=== PATIENT | male | born 1950 | race American Indian/Alaskan Native ===

== ENCOUNTER 2016-09-11 11:29 | Emergency (ER) | payer MEDICARE, MEDICAID ==
[2016-09-11 11:38] VITALS: BMI 17.2
[2016-09-11 11:41] VITALS: RESP 18; TEMP 97.1
--- NOTE | 2016-09-11 12:17 | ED PDOC ---
Arrival/HPI - General Chief Complaint: Cough, Cold, Congestion Time Seen by Provider: 09/11/16 11:53 Historian: Patient, Mcc - History of Present Illness Time/Duration: Prior to Arrival Symptom Onset: Sudden Symptom Course: Unchanged Severity Level: Moderate Activities at Onset: Rest Associated Symptoms (Text): 09/11/16 12:15 Patient sent to the emergency department from the long-term for a leaking suprapubic catheter and a leaking PEG tube. The PEG tube actually has a crack in it. There is only one lumen in the tube and I am unable to remove it without pain for the patient. 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 Past Medical History - Infectious Disease Hx of Infectious Diseases: None - Tetanus Immunization Tetanus Immunization: Unknown - Cardiac Hx Cardiac Disorders: Yes Hx Hypertension: Yes - Pulmonary Hx Respiratory Disorders: Yes (THROAT CA, H/O TRACH PLACEMENT/reversal) Hx Asthma: Yes Hx Chronic Obstructive Pulmonary Disease (COPD): Yes Hx Emphysema: Yes Hx Respiratory Aspiration: Yes (ASPIRATION PRECAUTIONS DUE TO PEG FEEDING) - Neurological Hx Neurological Disorder: Yes HX Cerebrovascular Accident: Yes Hx Dementia: Yes Hx Paralysis: Yes (L HEMIPLEGIA) Hx Transient Ischemic Attacks (TIA): Yes - HEENT Hx HEENT Disorder: Yes Hx Blind: Yes (LEGALLY BLIND) Hx Cataracts: Yes (RETINAL DETACHMENT BILATERAL) Hx Glaucoma: Yes Other/Comment: TRACHEOSTOMY REVERSED - Renal Hx Renal Disorder: Yes (SUPRAPUBIC CATHETER) Hx Neurogenic Bladder: Yes (HEMATURIA/URINARY RETENTION) Other/Comment: RETENTION, SUPRAPUBIC RODRIGUEZ CATHETER - Endocrine/Metabolic Hx Diabetes Mellitus Type 2: Yes - Hematological/Oncological Hx Blood Disorders: Yes Hx Anemia: Yes Hx Cancer: Yes (prostate, head and neck) Hx Chemotherapy: Yes - Musculoskeletal/Rheumatological Hx Musculoskeletal Disorders: Yes Hx Falls: Yes Hx Unsteady Gait: Yes (BEDRIDDEN) - Gastrointestinal Hx Gastrointestinal Disorders: Yes Hx Diverticulitis: Yes HX Swallowing Problems: Yes (HEAD AND NECK CANCER) Other/Comment: HIATAL HERNIA/GASTROSTOMY TUBE 2012 - Genitourinary/Gynecological Hx Genitourinary Disorders: Yes Hx Hematuria: Yes Hx Incontinence: Yes Hx Prostate Cancer: Yes Hx Prostate Problems: Yes (PROSTATE CA) Other/Comment: HX: RETENTION. RODRIGUEZ CATHETER DEPENDENT - Psychiatric Hx Psychophysiologic Disorder: Yes Hx Anxiety: Yes - Past Surgical History Past Surgical History: Unable to Obtain - Surgical History Other/Comment: PROSTATE, DISSECTION DEBULKING HEAD AND NECK CA. GASTROSTOMY TUBE INSERTION. SUPRAPUBIC CATHETER INSERTION/CYSTO. 12/03/15-CHANGE IN RODRIGUEZ CATH - Anesthesia Hx Anesthesia: Yes Hx Anesthesia Reactions: No Hx Malignant Hyperthermia: No - Suicidal Assessment Feels Threatened In Home Enviroment: No Family/Social History - Physician Review Nursing Documentation Reviewed: Yes Family/Social History: Unknown Family HX Smoking Status: Former Smoker Hx Alcohol Use: No Hx Substance Use Treatment: No Allergies/Home Meds Allergies/Adverse Reactions: Allergies No Known Allergies Allergy (Verified 08/19/16 11:10) Home Medications: Home Meds Medication Instructions Recorded Confirmed Omeprazole [Prilosec] 20 mg GT BID 11/17/13 08/19/16 Rosuvastatin Calcium [Crestor] 10 mg GT DAILY 11/17/13 08/19/16 Acetaminophen 650 mg GT Q4 PRN 10/24/15 08/19/16 Amlodipine Besylate [Norvasc] 10 mg GT DAILY 10/24/15 08/19/16 Aspirin [Aspirin Chewable] 81 mg GT DAILY 10/24/15 08/19/16 Latanoprost 0.005% Opht [XALATAN 1 drop OU HS 10/24/15 08/19/16 2.5 Ml] Magnesium Hydroxide [Milk Of 30 ml GT HS PRN 10/24/15 08/19/16 Magnesia] Melatonin 5 mg GT HS 10/24/15 08/19/16 Metoprolol Tartrate [Lopressor] 50 mg GT DAILY 10/24/15 08/19/16 Multivitamin [Multi-Delyn] 5 ml GT DAILY 10/24/15 08/19/16 Oxybutynin [Oxybutynin Chloride] 10 mg GT DAILY 10/24/15 08/19/16 Vit C/Ascorbate Ca/Ascorb Sod 500 mg GT DAILY 10/24/15 08/19/16 [Vitamin C 500 mg/15 ml Liquid] fentaNYL 25 mcg/hr [Duragesic 1 patch TP Q72 10/24/15 08/19/16 Patch 25 mcg/hr] Albuterol/Ipratropium [Duoneb 3 3 ml IH Q6 PRN 07/30/16 08/19/16 mg/0.5 mg (3 ml) UD] Senna [Senokot Syrup] 10 ml GT DAILY 07/30/16 08/19/16 Oxycodone HCl/Acetaminophen 10 mg GT PRN PRN 08/04/16 08/19/16 [Percocet 10-325 mg Tablet] Review of Systems - Physician Review All systems were reviewed & negative as marked: Yes Physical Exam Vital Signs Temp Pulse Resp BP Pulse Ox 09/11/16 14:21 63 18 118/63 99 09/11/16 13:06 66 18 121/64 99 09/11/16 11:40 97.1 F L 68 18 122/67 99 Temperature: Afebrile Blood Pressure: Normal Pulse: Regular Respiratory Rate: Normal Appearance: Positive for: Well-Appearing, Non-Toxic, Comfortable, Other ( Chronically ill-appearing) Pain Distress: None Mental Status: Positive for: Alert and Oriented X 3 - Systems Exam Respiratory/Chest: Present: Clear to Auscultation, Good Air Exchange. No: Respiratory Distress, Accessory Muscle Use Cardiovascular: Present: Regular Rate and Rhythm, Normal S1, S2. No: Murmurs Abdomen: Present: Normal Bowel Sounds, Other (G-tube and suprapubic catheter in place). No: Tenderness, Distention, Peritoneal Signs Medical Decision Making ED Course and Treatment: 09/11/16 12:49 [facility]. 09/11/16 12:59 Discussed in detail with Dr.E Byrd. The suprapubic tube is not leaking. He would prefer that it would not be changed, as he reports it is very difficult to change. Disposition/Present on Arrival - Present on Arrival Any Indicators Present on Arrival: No History of DVT/PE: No History of Uncontrolled Diabetes: No Urinary Catheter: Yes (suprapubic cath) History of Decub. Ulcer: No History Surgical Site Infection Following: None - Disposition Have Diagnosis and Disposition been Completed?: Yes Diagnosis: Feeding tube dysfunction, Encounter for gastrojejunal (GJ) tube placement Disposition: HOME/ ROUTINE Disposition Time: 15:27 Patient Plan: Discharge Condition: GUARDED Discharge Instructions (ExitCare): Percutaneous Endoscopic Gastrostomy Insertion in Children (GEN)
[2016-09-11 15:54] VITALS: BP 102/66; PULSE 70; O2SAT 100
--- NOTE | 2016-09-11 16:23 | CON ---
DATE: 09/11/2016 Seen and examined in the Emergency Room. Chart was reviewed. REQUEST FOR CONSULT: For PEG tube malfunction. HISTORY OF PRESENT ILLNESS: This is a 65-year-old male with a past medical history of CVA, COPD, sup rapubic catheter and prostate cancer who came from the [facility] with complaints of leaking of PEG tube and suprapubic catheter. The patient states that his PEG tube is not functioning. The patient denies any nausea. No fever or chills. Denies any abdominal pain. No complaints of any shortness of breath, chest pain, fever, chills or overt GI bleed. PAST MEDICAL HISTORY: As stated above, CVA, asthma, COPD, diverticulosis, prostate cancer, throat ca ncer, suprapubic catheter, hypertension. The patient is also legally blind. He has a history of ret inal detachment bilaterally, history of diabetes mellitus type 2. PAST SURGICAL HISTORY: His last endoscopy was 09/2013. He had the PEG tube replaced, found to have gastric ulcer. He had dissection, debulking of the head and neck cancer, superpubic catheter inserti ons and cysto. The last change of his suprapubic catheter was 08/04/2016. SOCIAL HISTORY: Denies tobacco use, ETOH or substance abuse. MEDICATIONS: Reviewed as per AUG. I did not see any anticoagulants. ALLERGIES: No known drug allergies. FAMILY HISTORY: Noncontributory at this time. REVIEW OF SYSTEMS: Systems reviewed with positive findings, see HPI. VITAL SIGNS: Temperature is 97.1, blood pressure is 118/63, pulse 63, respirations 18, 99 on room ai r. LABORATORY DATA: ____ in the ER. RADIOLOGY: No radiology tests done or needed. PHYSICAL EXAMINATION: HEENT: Sclerae are anicteric. NECK: Supple. CARDIAC: S1, S2. LUNGS: Decreased breath sounds but good aeration, no rales or wheeze. ABDOMEN: With bowel sounds. Soft, nontender. No distension noted. Positive PEG tube that appears old. No erythema or bleeding noted at insertion site. He also has a suprapubic catheter in place, n ontender. EXTREMITIES: No edema noted. NEUROLOGIC: The patient is awake and alert. ASSESSMENT: This is a 65-year-old male with a history of prostate cancer, throat cancer; dysphagia h as a feeding tube; history of cerebrovascular accident, came to the Emergency Room with percutaneous endoscopic gastrostomy tube malfunction and leaking suprapubic catheter. Other comorbidities are chr onic obstructive pulmonary disease, hypertension. PLAN: The patient's feeding gastrostomy tube was changed at the bedside with an EndoVive feeding tub e, 20 [place] with 8 mL balloon. The patient tolerated the change of the feeding tube well. Very min imal blood after but the bleeding has stopped. Discussed with nursing staff that the feeding tube ca n be used. The patient is going to be discharged back to the [facility]. Can resume PEG feedings as previously ordered and use PEG tube for meds. Discussed with the ER team. Thank you for this consult and for allowing us to participate in your patient's care. The patient wa s seen and discussed with Dr. Mixon. Uyen CARDOZA cc: [id number] TT: 09/11/2016 16:22:22 Confirmation # [id number] Dictation # [id number] adilia
== END 2016-09-11 16:13 | disposition home or self-care (01) ==
LOC: ED 11:29
DX: Z43.1 Encounter for attention to gastrostomy (principal)

== ENCOUNTER 2017-08-18 17:39 | Observation (INO) | payer MEDICARE, MEDICAID ==
[2017-08-18 17:39] VITALS: BMI 16.6
--- NOTE | 2017-08-18 18:44 | ED PDOC ---
Arrival/HPI - General Chief Complaint: GI Problem Time Seen by Provider: 08/18/17 18:27 Historian: Patient, [facility] - History of Present Illness Narrative History of Present Illness (Text): 08/18/17 18:44 This 66 yo male with a pmh throat Ca, stroke, retinal detachment, presents to this ED stating his feeding tube was accidentally pulled out early today. Patient denies fever, sob, cp, nausea, vomiting, urinary symptoms, or abdominal pain. Time/Duration: Other (see hpi) Context: Home Past Medical History - Provider Review Nursing Documentation Reviewed: Yes - Infectious Disease Hx of Infectious Diseases: None - Tetanus Immunization Tetanus Immunization: Unknown - Cardiac Hx Cardiac Disorders: Yes Hx Hypertension: Yes - Pulmonary Hx Respiratory Disorders: Yes (THROAT CA, H/O TRACH PLACEMENT/reversal) Hx Asthma: Yes Hx Chronic Obstructive Pulmonary Disease (COPD): Yes Hx Emphysema: Yes Hx Respiratory Aspiration: Yes (ASPIRATION PRECAUTIONS DUE TO PEG FEEDING) - Neurological Hx Neurological Disorder: Yes HX Cerebrovascular Accident: Yes Hx Dementia: Yes Hx Paralysis: Yes (L HEMIPLEGIA) Hx Transient Ischemic Attacks (TIA): Yes - HEENT Hx HEENT Disorder: Yes Hx Blind: Yes (LEGALLY BLIND) Hx Cataracts: Yes (RETINAL DETACHMENT BILATERAL) Hx Glaucoma: Yes Other/Comment: TRACHEOSTOMY REVERSED - Renal Hx Renal Disorder: Yes (SUPRAPUBIC CATHETER) Hx Neurogenic Bladder: Yes (HEMATURIA/URINARY RETENTION) Other/Comment: RETENTION, SUPRAPUBIC RODRIGUEZ CATHETER - Endocrine/Metabolic Hx Endocrine Disorders: Yes Hx Diabetes Mellitus Type 2: Yes (no medication) - Hematological/Oncological Hx Blood Disorders: Yes Hx Anemia: Yes Hx Cancer: Yes (prostate, head and neck) Hx Chemotherapy: Yes - Integumentary Hx Dermatological Disorder: No - Musculoskeletal/Rheumatological Hx Musculoskeletal Disorders: Yes Hx Falls: Yes Hx Unsteady Gait: Yes (BEDRIDDEN) - Gastrointestinal Hx Gastrointestinal Disorders: Yes Hx Diverticulitis: Yes HX Swallowing Problems: Yes (HEAD AND NECK CANCER) Other/Comment: HIATAL HERNIA/GASTROSTOMY TUBE 2012 - Genitourinary/Gynecological Hx Genitourinary Disorders: Yes Hx Hematuria: Yes Hx Incontinence: Yes Hx Prostate Cancer: Yes Hx Prostate Problems: Yes (PROSTATE CA) Other/Comment: HX: RETENTION. RODRIGUEZ CATHETER DEPENDENT - Psychiatric Hx Psychophysiologic Disorder: Yes Hx Anxiety: Yes Hx Substance Use: No - Past Surgical History Past Surgical History: Unable to Obtain - Surgical History Other/Comment: PROSTATE, DISSECTION DEBULKING HEAD AND NECK CA. GASTROSTOMY TUBE INSERTION. SUPRAPUBIC CATHETER INSERTION/CYSTO - Anesthesia Hx Anesthesia: Yes Hx Anesthesia Reactions: No Hx Malignant Hyperthermia: No - Suicidal Assessment Feels Threatened In Home Enviroment: No Family/Social History - Physician Review Nursing Documentation Reviewed: Yes Family/Social History: Other Smoking Status: Former Smoker Hx Alcohol Use: No Hx Substance Use: No Hx Substance Use Treatment: No Allergies/Home Meds Allergies/Adverse Reactions: Allergies No Known Allergies Allergy (Verified 08/18/17 17:54) Home Medications: Home Meds Medication Instructions Recorded Confirmed Omeprazole [Prilosec] 20 mg GT BID 11/17/13 08/18/17 Acetaminophen 650 mg GT Q4 PRN 10/24/15 08/18/17 Amlodipine Besylate [Norvasc] 10 mg GT DAILY 10/24/15 08/18/17 Aspirin [Aspirin Chewable] 81 mg GT DAILY 10/24/15 08/18/17 Latanoprost 0.005% Opht [XALATAN 1 drop OU HS 10/24/15 08/18/17 2.5 Ml] Magnesium Hydroxide [Milk Of 30 ml GT HS PRN 10/24/15 08/18/17 Magnesia] Melatonin 5 mg GT HS 10/24/15 08/18/17 Metoprolol Tartrate [Lopressor] 50 mg GT DAILY 10/24/15 08/18/17 Multivitamin [Multi-Delyn] 5 ml GT DAILY 10/24/15 08/18/17 Oxybutynin [Oxybutynin Chloride] 10 mg GT DAILY 10/24/15 08/18/17 Vit C/Ascorbate Calcium,Sodium 500 mg GT DAILY 10/24/15 08/18/17 [Vitamin C 500 mg/15 ml Liquid] Albuterol/Ipratropium [Duoneb 3 3 ml IH Q6 PRN 07/30/16 08/18/17 mg/0.5 mg (3 ml) UD] Senna [Senokot Syrup] 10 ml GT DAILY 07/30/16 08/18/17 Amino Acids/Protein Hydrolys 30 ml GT BID 08/18/17 08/18/17 [Prostat 15 g packet] Fentanyl [Duragesic Patch] 25 mcg TOP Q72 08/18/17 08/18/17 Lactulose [Generlac] 10 gm GT PRN PRN 08/18/17 08/18/17 oxyCODONE/Acetaminophen [Percocet 1 tab GT TID 08/18/17 08/18/17 5/325 mg Tab] Review of Systems - Review of Systems Constitutional: Normal. absent: Fatigue, Weight Change, Fevers Eyes: Normal ENT: Normal Respiratory: Normal. absent: SOB, Cough Cardiovascular: Normal. absent: Chest Pain, Palpitations Gastrointestinal: Other (see hpi). absent: Abdominal Pain, Nausea, Vomiting Genitourinary Male: Normal Musculoskeletal: Normal Skin: Normal Neurological: Normal Endocrine: Normal Hemo/Lymphatic: Normal Psychiatric: Normal Physical Exam Vital Signs Temp Pulse Resp BP Pulse Ox 08/18/17 18:00 97.8 F 75 20 102/74 99 Temperature: Afebrile Blood Pressure: Normal Pulse: Regular Respiratory Rate: Normal Appearance: Positive for: Well-Appearing, Non-Toxic, Comfortable Pain Distress: None Mental Status: Positive for: Alert and Oriented X 3 - Systems Exam Head: Present: Atraumatic, Normocephalic Pupils: Present: PERRL Extroacular Muscles: Present: EOMI Conjunctiva: Present: Normal Mouth: Present: Moist Mucous Membranes Neck: Present: Normal Range of Motion Respiratory/Chest: Present: Clear to Auscultation, Good Air Exchange. No: Respiratory Distress, Accessory Muscle Use Cardiovascular: Present: Regular Rate and Rhythm, Normal S1, S2. No: Murmurs Abdomen: Present: Normal Bowel Sounds, Other ((+) suprapubic cathereter visualized). No: Tenderness, Distention, Peritoneal Signs, Rebound, Guarding, Feeding Tubes (feeding tube is not visualized. G-tube abdominal ) Back: Present: Normal Inspection. No: CVA Tenderness Upper Extremity: Present: Normal Inspection. No: Cyanosis, Edema Lower Extremity: Present: Normal Inspection. No: Edema Neurological: Present: GCS=15, CN II-XII Intact, Speech Normal Skin: Present: Warm, Dry, Normal Color. No: Rashes Psychiatric: Present: Alert, Oriented x 3 Medical Decision Making ED Course and Treatment: 08/18/17 20:[address] Tierney regarding feeding tube was pulled out early today. She recommended Dr. Mixon for GI consult, and she agreed with plan for admission. 08/18/17 20:14 Patient refused KUB x-rays at this time Re-evaluation Time: 20:09 Reassessment Condition: Re-examined, Improving,but remains with symptoms - Lab Interpretations Lab Results: 08/18/17 19:00 08/18/17 19:00 Lab Results 08/18/17 19:00: Sodium 141, Potassium 5.0, Chloride 100, Carbon Dioxide 33, Anion Gap 13, BUN 14, Creatinine 0.7 L, Est GFR ( Amer) > 60, Est GFR ( Non-Af Amer) > 60, Random Glucose 84, Calcium 10.4, Total Bilirubin 0.6, AST 23 , ALT 18, Alkaline Phosphatase 122, Total Protein 8.8 H, Albumin 4.3, Globulin 4.5, Albumin/Globulin Ratio 1.0 L 08/18/17 19:00: PT 11.9, INR 1.04, APTT 38.1 H 08/18/17 19:00: WBC 6.4, RBC 4.76, Hgb 15.1, Hct 44.8, MCV 94.1, MCH 31.7, MCHC 33.7, RDW 12.7, Plt Count 193, MPV 9.6, Gran % 69.6 H, Lymph % (Auto) 19.2 L, [place] % (Auto) 6.3 H, Eos % (Auto) 4.4, Baso % (Auto) 0.5, Gran # 4.44, Lymph # ( Auto) 1.2, [place] # (Auto) 0.4, Eos # (Auto) 0.3, Baso # (Auto) 0.03 I have reviewed the lab results: Yes Interpretation: No clinic. lab abnormalty - RAD Interpretation Radiology Orders: 08/18/17 18:43 CHEST PORTABLE [RAD] Stat 08/18/17 18:46 ABDOMEN (FLAT PLATE) 1VIEW [RAD] Stat Disposition/Present on Arrival - Present on Arrival Any Indicators Present on Arrival: No History of DVT/PE: No History of Uncontrolled Diabetes: No Urinary Catheter: Yes (suprapubic cath) History of Decub. Ulcer: No History Surgical Site Infection Following: None - Disposition Have Diagnosis and Disposition been Completed?: Yes Diagnosis: Encounter for feeding tube placement Disposition: HOSPITALIZED Disposition Time: 20:10 Patient Plan: Admission Patient Problems: Current Active Problems Problem Status Onset Encounter for feeding tube placement Acute Condition: STABLE Referrals: Zully Post, [Primary Care Provider] - Follow up with primary Azul Tierney MD [Staff Provider] - Follow up with primary
[2017-08-18 19:23] LABS: BASO # 0.03 K/mm3 (0.0-2.0); BASO % 0.5 % (0.0-3.0); EOS # 0.3 (0.0-0.7); EOS % 4.4 % (1.5-5.0); GRAN # 4.44 (1.4-6.5); GRAN % 69.6 % (50.0-68.0); HEMOGLOBIN 15.1 g/dL (14.0-18.0); LYMPH # 1.2 (1.2-3.4); LYMPH % 19.2 % (22.0-35.0); MEAN CELL VOLUME 94.1 fl (80.0-105.0); MEAN CORPUSCULAR HEMOGLOBIN 31.7 pg (25.0-35.0); MEAN CORPUSCULAR HGB CONC 33.7 g/dl (31.0-37.0); MEAN PLATELET VOLUME 9.6 fl (7.0-11.0); MONO # 0.4 (0.1-0.6); MONO % 6.3 % (1.0-6.0); RBC 4.76 10^6/uL (3.5-6.1); RED CELL DISTRIBUTION WIDTH 12.7 % (11.5-14.5); WHITE BLOOD COUNT 6.4 10^3/ul (4.5-11.0)
[2017-08-18 19:31] LABS: INR 1.04 (0.93-1.08); PARTIAL THROMBOPLASTIN TIME 38.1 Seconds (25.1-36.5); PROTHROMBIN TIME 11.9 SECONDS (9.4-12.5)
[2017-08-18 19:33] LABS: ALBUMIN 4.3 g/dL (3.0-4.8); CALCIUM 10.4 mg/dL (8.4-10.5); GFR AFRICAN-AMERICAN > 60; GFR NON-AFRICAN AMERICAN > 60
[2017-08-18 19:35] LABS: ALT/SGPT 18 U/L (7-56); AST/SGOT 23 U/L (17-59); BLOOD UREA NITROGEN 14 mg/dL (7-21)
[2017-08-18] MEDS ORDERED: Magnesium Hydroxide Susp 30 ml UD GT PRN (23:19)
[2017-08-18] MEDS ORDERED: Albuterol-Ipratrop 3 mg / 0.5 (3 ml) UD IH PRN (23:19)
[2017-08-19] MEDS ORDERED: Pantoprazole 40 mg Susp UD GT SCH (06:00)
[2017-08-19] MEDS ORDERED: Sodium Chloride 0.9% 1,000 ML IV SCH (07:45)
[2017-08-19 07:56] LABS: HEMOGLOBIN 14.5 g/dL (14.0-18.0); MEAN CELL VOLUME 93.5 fl (80.0-105.0); MEAN CORPUSCULAR HEMOGLOBIN 31.5 pg (25.0-35.0); MEAN CORPUSCULAR HGB CONC 33.7 g/dl (31.0-37.0); MEAN PLATELET VOLUME 9.4 fl (7.0-11.0); RBC 4.6 10^6/uL (3.5-6.1); RED CELL DISTRIBUTION WIDTH 12.8 % (11.5-14.5)
[2017-08-19 08:05] LABS: IRON 79 ug/dL (45-180)
[2017-08-19 08:10] LABS: BLOOD UREA NITROGEN 12 mg/dL (7-21); CALCIUM 9.9 mg/dL (8.4-10.5); GFR AFRICAN-AMERICAN > 60; GFR NON-AFRICAN AMERICAN > 60; HDL CHOLESTEROL 36 mg/dL (29-60)
[2017-08-19 08:14] LABS: % IRON SATURATION 30 % (20-55); TOTAL IRON BINDING CAPACITY 260 ug/dL (261-462)
[2017-08-19 08:17] LABS: LDL CHOLESTEROL 88 mg/dL (0-129)
--- NOTE | 2017-08-19 08:46 | RAD ---
HISTORY: admission COMPARISON: 09/13/2013 FINDINGS: LUNGS: No active pulmonary disease. PLEURA: No significant pleural effusion identified, no pneumothorax apparent. CARDIOVASCULAR: Normal. OSSEOUS STRUCTURES: No significant abnormalities. VISUALIZED UPPER ABDOMEN: Normal. OTHER FINDINGS: None. IMPRESSION: No active disease.
[2017-08-19] MEDS ORDERED: SENNA 8.8 MG/5 ML GT SCH (10:00)
[2017-08-19] MEDS: Oxycodone/Acetaminophen 5/325 mg Tab GT SCH ×3 (10:48→17:39)
[2017-08-19 13:59] LABS: FOLATE 12.3 ng/mL
[2017-08-19 14:32] VITALS: BP 139/83; PULSE 72; RESP 18; O2SAT 98
[2017-08-19] MEDS: Prostat 15 g packet GT SCH ×2 (14:38→18:15)
--- NOTE | 2017-08-19 16:13 | HP ---
CHIEF COMPLAINT: GI problem. HISTORY OF PRESENT ILLNESS: Mr. Beny Armando is a 66 years old male with history of throat cancer; stroke; bilaterally blind; has PEG tube, was accidentally dislodged. The patient is not a good historian. Denies fever, shortness of breath. No chest pain. No nausea, vomiting or diarrhea. No fever, no chills. PAST MEDICAL HISTORY: As above; hypertension, placement and reversal, COPD; emphysema; aspiration pneumonia; PEG tube; dementia; history of hemiplegia; TIA; legally blind; retinal detachment; history of tracheostomy reversal; diabetes mellitus; history of prostate, head, neck and throat CA; history of fall. FAMILY HISTORY: Father and mother, noncontributory. HABITS: Former smoker. No alcohol or substance abuse. ALLERGIES: THE PATIENT IS NOT ALLERGIC WITH ANY MEDICATIONS. HOME MEDICATIONS: Omeprazole, amlodipine, aspirin, metoprolol, Duragesic patch. REVIEW OF SYSTEMS: The patient was seen and examined on the bedside, looking comfortable. No nausea, vomiting or diarrhea. No hematuria or hematochezia. No swelling of the leg. No headache, no dizziness. PHYSICAL EXAMINATION VITAL SIGNS: Temperature 97.8, pulse 75, respiratory rate 20, blood pressure 102/74, pulse oximetry 99. HEENT: Head: Normocephalic, atraumatic. Eyes: PERRLA. Extraocular muscles intact. Conjunctivae clear. Nose: Patent. NECK: Supple. No carotid bruit. No JVD, no thyromegaly. CHEST: Bilaterally symmetrical. HEART: S1, S2 positive. LUNGS: Clear to auscultation. ABDOMEN: Soft. Bowel sounds present. No organomegaly. EXTREMITIES: No edema. No cyanosis. NEUROLOGIC: Patient is awake and alert. Moving all 4 extremities. No focal deficit. LABORATORY DATA: White blood cell 6.4, hemoglobin 15.1, hematocrit 44.8, platelets 193,000. Sodium 141, potassium 5, BUN 14, creatinine 0.7, glucose 84. ASSESSMENT AND PLAN: Mr. Beny Armando is a 66 years old male came for encounter for feeding tube placement, history of throat cancer, stroke, retinal detachment, legally blind, accidentally pulled his gastrostomy tube, history of percutaneous endoscopic gastrostomy placement and reversal, chronic obstructive pulmonary disease, history of pneumonia, dementia, hemiplegia, transient ischemic attack, indwelling catheter, diabetes mellitus type 2, history of prostate, head and neck cancer. Gastroenterology consult called We will follow up. Azul Tierney MD ALEXI
[2017-08-19 16:35] VITALS: TEMP 98
--- NOTE | 2017-08-19 16:54 | CP.PCM.CON ---
<Uyen Gonzalez - Last Filed: 08/19/17 16:52> History of Present Illness - History of Present Illness History of Present Illness: Seen and examined at the bedside earlier this morning, chart reviewed. Request for GI consult is for a dislodged PEG. 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 This patient is well known to our service with multiple admissions and dislodged PEG and replacements. The patient is awake and alert denies any nausea, vomiting, or abdominal pain. The patient is reported to be on a pured diet in the [facility]. No acute overnight events reported. This patient had a chest x-ray on admission which showed no active disease. Past medical history: Head/neck/throat cancer,Prostate cancer, CVA, asthma, COPD , hypertension Past surgical history: Suprapubic catheter/cystoscopy, dissection debulking head neck cancer Prostate surgery, EGD/PEG insertion/replacement Allergies: No known drug allergies Medications: Reviewed as per MAR Family history: Noncontributory at this time Social history: Former smoker, denies EtOH or illicit drugs ROS: Systems reviewed a positive findings see HPI Past Patient History - Infectious Disease Hx of Infectious Diseases: None - Tetanus Immunizations Tetanus Immunization: Unknown - Past Medical History & Family History Past Medical History?: Yes - Past Social History Smoking Status: Former Smoker - CARDIAC Hx Hypertension: Yes - PULMONARY Hx Respiratory Disorders: Yes (THROAT CA, H/O TRACH PLACEMENT/reversal) Hx Asthma: Yes Hx Chronic Obstructive Pulmonary Disease (COPD): Yes - NEUROLOGICAL HX Cerebrovascular Accident: Yes Hx Dementia: Yes Hx Transient Ischemic Attacks (TIA): Yes - HEENT Hx Blind: Yes (LEGALLY BLIND) Hx Cataracts: Yes (RETINAL DETACHMENT BILATERAL) Hx Glaucoma: Yes - RENAL Hx Chronic Kidney Disease: Yes (SUPRAPUBIC CATHETER) Hx Neurogenic Bladder: Yes (HEMATURIA/URINARY RETENTION) Other/Comment: RETENTION, SUPRAPUBIC RODRIGUEZ CATHETER - ENDOCRINE/METABOLIC Hx Endocrine Disorders: Yes Hx Diabetes Mellitus Type 2: Yes (no medication) - HEMATOLOGICAL/ONCOLOGICAL Hx Blood Disorders: Yes Hx Anemia: Yes Hx Cancer: Yes (prostate, thoat) Hx Chemotherapy: Yes - INTEGUMENTARY Hx Dermatological Problems: No - MUSCULOSKELETAL/RHEUMATOLOGICAL Hx Falls: Yes - GASTROINTESTINAL Hx Gastrointestinal Disorders: Yes Hx Diverticulitis: Yes HX Swallowing Problems: Yes (throat CA) Other/Comment: HIATAL HERNIA/GASTROSTOMY TUBE 2012 - GENITOURINARY/GYNECOLOGICAL Hx Genitourinary Disorders: Yes Hx Hematuria: Yes Hx Incontinence: Yes Hx Prostate Problems: Yes (PROSTATE CA) - PSYCHIATRIC Hx Anxiety: Yes - SURGICAL HISTORY Other/Comment: HIATAL HERNIA REPAIR - ANESTHESIA Hx Anesthesia: Yes Hx Anesthesia Reactions: No Hx Malignant Hyperthermia: No Meds Allergies/Adverse Reactions: Allergies Allergy/AdvReac Type Severity Reaction Status Date / Time No Known Allergies Allergy Verified 08/18/17 17:54 - Medications Medications: Current Medications Albuterol/Ipratropium (Duoneb 3 Mg/0.5 Mg (3 Ml) Ud) 3 ml IH Q6 PRN PRN Reason: Shortness of Breath Amlodipine Besylate (Norvasc) 10 mg GT DAILY [facility] Last Admin: 08/19/17 10:47 Dose: 10 mg Fentanyl (Duragesic) 1 patch TD Q72 [facility] Sodium Chloride (Sodium Chloride 0.9%) 1,000 mls @ 50 mls/hr IV .Q20H [facility] Latanoprost (Xalatan Opht) 0 ml OU HS [facility] Magnesium Hydroxide (Milk Of Magnesia) 30 ml GT HS PRN PRN Reason: Constipation Metoprolol Tartrate (Lopressor) 50 mg GT DAILY [facility] Last Admin: 08/19/17 10:47 Dose: 50 mg Melatonin [Melatonin (] 5 Mg (Home Med)) 5 mg GT HS [facility] Oxycodone/Acetaminophen (Percocet 5/325 Mg Tab) 1 tab GT TID [facility] Stop: 08/22/17 10:01 Last Admin: 08/19/17 14:32 Dose: 1 tab Pantoprazole Sodium (Protonix Susp) 40 mg GT 0600 [facility] Last Admin: 08/19/17 07:29 Dose: Not Given Sennosides (Senokot Tab) 17.2 mg PEG DAILY [facility] Physical Exam - Constitutional Appears: No Acute Distress, Cachectic - Head Exam Head Exam: NORMOCEPHALIC - Eye Exam Eye Exam: absent: Scleral icterus - ENT Exam ENT Exam: Mucous Membranes Moist - Neck Exam Neck exam: Positive for: Normal Inspection - Respiratory Exam Respiratory Exam: NORMAL BREATHING PATTERN. absent: Respiratory Distress - Cardiovascular Exam Cardiovascular Exam: +S1, +S2 - GI/Abdominal Exam GI & Abdominal Exam: Normal Bowel Sounds, Soft. absent: Guarding, Rebound, Tenderness Additional comments: suprapubic catheter present, stoma from PEG tube noted, no PEG, no drainage or bleeding noted abdomen nontender. - Extremities Exam Extremities exam: Positive for: pedal pulses present. Negative for: calf tenderness, pedal edema - Neurological Exam Neurological exam: Alert, Oriented x3 - Skin Skin Exam: Dry, Warm Results - Vital Signs Recent Vital Signs: Last Vital Signs Temp 98 F 08/19/17 14:00 Pulse 72 08/19/17 14:00 Resp 18 08/19/17 14:00 BP 139/83 08/19/17 14:00 Pulse Ox 98 08/19/17 14:00 - Labs Result Diagrams: 08/19/17 07:30 08/19/17 07:30 Labs: Laboratory Results - last 24 hr 08/19/17 08/19/17 08/19/17 07:30 07:30 07:30 WBC 5.0 D RBC 4.60 Hgb 14.5 Hct 43.0 MCV 93.5 MCH 31.5 MCHC 33.7 RDW 12.8 Plt Count 203 MPV 9.4 Sodium Potassium Chloride Carbon Dioxide Anion Gap BUN Creatinine Est GFR ( Amer) Est GFR (Non-Af Amer) Random Glucose Hemoglobin A1c 5.3 Calcium Iron 79 TIBC 260 L % Saturation 30 Triglycerides Cholesterol LDL Cholesterol Direct HDL Cholesterol Vitamin B12 Folate TSH 3rd Generation 08/19/17 08/19/17 07:30 07:30 WBC RBC Hgb Hct MCV MCH MCHC RDW Plt Count MPV Sodium 140 Potassium 3.9 Chloride 102 Carbon Dioxide 29 Anion Gap 13 BUN 12 Creatinine 0.6 L Est GFR ( Amer) > 60 Est GFR (Non-Af Amer) > 60 Random Glucose 90 Hemoglobin A1c Calcium 9.9 Iron TIBC % Saturation Triglycerides 113 Cholesterol 152 LDL Cholesterol Direct 88 HDL Cholesterol 36 Vitamin B12 724 Folate 12.3 TSH 3rd Generation 0.66 Assessment & Plan - Assessment and Plan (Free Text) Assessment: Assessment: Dislodged PEG tube History of head/neck/throat cancer CVA COPD Blindness secondary to retinal detachment Plan: Replace PEG tube at bedside on Puree diet request swallow evaluation continue PPI continue DVT prophylaxis Thank you for this consult and for allowing us to participate in your patient's care, further recommendations based upon clinical course. Seen and discussed with Dr. Mixon <Jammie Mixon V - Last Filed: 08/19/17 23:07> Results - Vital Signs Recent Vital Signs: Last Vital Signs Temp 98 F 08/19/17 14:00 Pulse 72 08/19/17 14:00 Resp 18 08/19/17 14:00 BP 139/83 08/19/17 14:00 Pulse Ox 98 08/19/17 14:00 - Labs Result Diagrams: 08/19/17 07:30 08/19/17 07:30 Labs: Laboratory Results - last 24 hr 08/19/17 08/19/17 08/19/17 07:30 07:30 07:30 WBC 5.0 D RBC 4.60 Hgb 14.5 Hct 43.0 MCV 93.5 MCH 31.5 MCHC 33.7 RDW 12.8 Plt Count 203 MPV 9.4 Sodium Potassium Chloride Carbon Dioxide Anion Gap BUN Creatinine Est GFR ( Amer) Est GFR (Non-Af Amer) Random Glucose Hemoglobin A1c 5.3 Calcium Iron 79 TIBC 260 L % Saturation 30 Triglycerides Cholesterol LDL Cholesterol Direct HDL Cholesterol Vitamin B12 Folate TSH 3rd Generation 08/19/17 08/19/17 07:30 07:30 WBC RBC Hgb Hct MCV MCH MCHC RDW Plt Count MPV Sodium 140 Potassium 3.9 Chloride 102 Carbon Dioxide 29 Anion Gap 13 BUN 12 Creatinine 0.6 L Est GFR ( Amer) > 60 Est GFR (Non-Af Amer) > 60 Random Glucose 90 Hemoglobin A1c Calcium 9.9 Iron TIBC % Saturation Triglycerides 113 Cholesterol 152 LDL Cholesterol Direct 88 HDL Cholesterol 36 Vitamin B12 724 Folate 12.3 TSH 3rd Generation 0.66 Attending/Attestation - Attestation I have personally seen and examined this patient.: Yes I have fully participated in the care of the patient.: Yes I have reviewed all pertinent clinical information: Yes Notes (Text): This is an addendum to GI progress report dictated by Uyen Gonzalez APN.The patient was seen and examined earlier. Medical records, lab studies, imagings were reviewed. Last 24 hours events reviewed. Agreed with the above treatment plan as outlined in Uyen Gonzalez APN's notes the with the addition of the following on examination patient comfortable PEG site appears nearly closed [employer] flow 20 Austrian balloon type replacements gastric tube was inserted with no problems aspirated revealing gastric contents Patient tolerated the procedure explained discussed with nursing staff had placed this into feeding use the G-tube as needed Discussed with the Arsh 08/19/17 23:01
[2017-08-19] MEDS ORDERED: Latanoprost 2.5 ml Opht Soln OU SCH (22:00)
[2017-08-19] MEDS ORDERED: MELATONIN 5 MG GT SCH (22:00)
--- NOTE | 2017-08-20 22:44 | DS ---
CHIEF COMPLAINT: GI problem. HISTORY OF PRESENT ILLNESS: Mr. Beny Armando is a 66-year-old male with a history of throat cancer, stroke, bilaterally blind, has PEG tube, was accidentally dislodged either by the patient or staff. The patient is not a good historian and denies fever, chills, nausea, vomiting or diarrhea. Readmitted the patient. Dr. Mixon reinserted the PEG tube and patient tolerated the procedure very well, spoke to Dr. Mixon, read his nurse practitioner's notes, discharged patient back to [facility]. PAST MEDICAL HISTORY: As above. Hypertension, G-tube placement, COPD, emphysema, aspiration pneumonia, dementia, hemiplegia, TIA, legally blind, retinal detachment, history of tracheostomy reversal, diabetes mellitus; history of prostate, head and neck cancer. FAMILY HISTORY: Father and mother, noncontributory. HABITS: No smoking. No drug, no ethanol now. ALLERGIES: PATIENT IS NOT ALLERGIC WITH ANY MEDICATIONS. HOME MEDICATIONS: Reviewed by me. REVIEW OF SYSTEMS: Patient is seen and examined at bedside, looking comfortable. Nursing staff was around. Patient is feeling better. No nausea, vomiting or diarrhea. No hematuria, no hematochezia, no swelling of the legs. No chest pain or palpitations. No headache, no dizziness. PHYSICAL EXAMINATION: VITAL SIGNS: Temperature is 98, pulse 72, blood pressure 139/80, respiratory rate 18. HEENT: Head: Normocephalic, atraumatic. Eyes: PERRLA. Extraocular muscles intact. Conjunctivae are clear. Nose patent. NECK: Supple. No carotid bruit. No JVD, or thyromegaly. CHEST: Bilaterally symmetrical. HEART: S1 and S2 positive. LUNGS: Clear to auscultation. ABDOMEN: Soft. Has PEG tube. EXTREMITIES: No edema. No cyanosis. NEUROLOGIC: Patient is awake and alert. LABORATORY DATA: White blood cells 5.0, hemoglobin 14.5, hematocrit 48.0, platelets 203. Sodium 140, potassium 3.9, BUN 12, creatinine 0.6, glucose 90, calcium 9.9, TIBC 260. ASSESSMENT AND PLAN: Mr. Beny Armando is a 66-year-old male with high total iron binding capacity, high total protein, has multiple medical problems, cancer of head, neck and prostate, status post chemotherapy and radiation therapy, cerebrovascular accident, asthma, chronic obstructive pulmonary disease, hypertension, suprapubic catheter, cystoscopy, head and neck cancer, status post EGD, PEG insertion and replacement. Gastrostomy tube was placed. Patient tolerated the procedure very well, sent back to shelter. We will follow up there. Azul Tierney MD MTDD
== END 2017-08-19 18:36 ==
LOC: ED 17:39 → ERH 20:16 → INTOOBSV 20:16 → ERH 21:40 → 5RSO 08-19 00:06
PROVIDERS: ADMIT Internal Medicine; ATTEND Internal Medicine
DX: Z43.1 Encounter for attention to gastrostomy (principal); I12.9 Hypertensive chronic kidney disease with stage 1 through stage 4 chronic kidney disease, or unspecified chronic kidney disease; N18.9 Chronic kidney disease, unspecified; H54.8 Legal blindness, as defined in USA; H33.20 Serous retinal detachment, unspecified eye; J43.9 Emphysema, unspecified; Z87.891 Personal history of nicotine dependence; Z85.819 Personal history of malignant neoplasm of unspecified site of lip, oral cavity, and pharynx; Z85.46 Personal history of malignant neoplasm of prostate; Z74.01 Bed confinement status; Z79.82 Long term (current) use of aspirin; Z93.0 Tracheostomy status; G81.94 Hemiplegia, unspecified affecting left nondominant side; F03.90 Unspecified dementia, unspecified severity, without behavioral disturbance, psychotic disturbance, mood disturbance, and anxiety; E11.22 Type 2 diabetes mellitus with diabetic chronic kidney disease; H40.9 Unspecified glaucoma
CPT/HCPCS: 36415; 43760; 71045; 80048; 80053; 80061; 82607; 82746; 83036; 83540; 83550; 84443; 85025; 85027; 85610; 85730; 86850; 86900; 99284; G0378

== ENCOUNTER 2017-12-13 06:55 | Emergency (ER) | payer MEDICARE, MEDICAID ==
[2017-12-13 06:55] VITALS: BMI 16.4
[2017-12-13 07:02] VITALS: RESP 18; O2SAT 99
--- NOTE | 2017-12-13 07:45 | ED PDOC ---
Arrival/HPI - General Chief Complaint: Male Genitourinary Time Seen by Provider: 12/13/17 07:42 Historian: Patient - History of Present Illness Narrative History of Present Illness (Text): 12/13/17 07:42 A 67 year old male, whose past medical history includes hypertension, asthma, COPD, CVA and head/neck/throat cancer, sent into the emergency department from [facility] for evaluation concerning rodriguez catheter replacement. Patient reports his suprapubic catheter stopped functioning last night. He notes minimal urine from penis but denies any pain or discomfort at this time. Patient denies any fever, chills, nausea, vomiting, abdominal pain, chest pain, shortness of breath or any other complaints. PMD: Dr. Tierney Urologist: Dr. Romain Byrd Time/Duration: Other (last night) Symptom Course: Unchanged Context: Home ([facility]) Past Medical History - Provider Review Nursing Documentation Reviewed: Yes - Infectious Disease Hx of Infectious Diseases: None - Tetanus Immunization Tetanus Immunization: Unknown - Cardiac Hx Cardiac Disorders: Yes Hx [place]: No Hx Hypertension: Yes - Pulmonary Hx Respiratory Disorders: Yes (THROAT CA, H/O TRACH PLACEMENT/reversal) Hx Asthma: Yes Hx Chronic Obstructive Pulmonary Disease (COPD): Yes Hx Emphysema: Yes Hx Respiratory Aspiration: Yes (ASPIRATION PRECAUTIONS DUE TO PEG FEEDING) Hx Sleep Apnea: No - Neurological Hx Neurological Disorder: Yes HX Cerebrovascular Accident: Yes Hx Paralysis: Yes (L HEMIPLEGIA) Hx Transient Ischemic Attacks (TIA): Yes - HEENT Hx HEENT Disorder: Yes Hx Blind: Yes (LEGALLY BLIND) Hx Cataracts: Yes (RETINAL DETACHMENT BILATERAL) Hx Glaucoma: Yes Other/Comment: TRACHEOSTOMY REVERSED - Renal Hx Renal Disorder: Yes (SUPRAPUBIC CATHETER) Hx Neurogenic Bladder: Yes (HEMATURIA/URINARY RETENTION) Other/Comment: RETENTION, SUPRAPUBIC RODRIGUEZ CATHETER - Endocrine/Metabolic Hx Endocrine Disorders: Yes Hx Diabetes Mellitus Type 2: Yes (no medication) - Hematological/Oncological Hx Blood Disorders: Yes Hx Anemia: Yes Hx Cancer: Yes (prostate, thoat) Hx Chemotherapy: Yes - Integumentary Hx Dermatological Disorder: Yes Hx Cellulitis: Yes (LOWER EXTREMITIES; HEALED) - Musculoskeletal/Rheumatological Hx Musculoskeletal Disorders: Yes Hx Falls: Yes Hx Unsteady Gait: Yes ([place]) - Gastrointestinal Hx Gastrointestinal Disorders: Yes Hx Diverticulitis: Yes Hx Hemorrhoids: Yes HX Swallowing Problems: Yes (throat CA) Other/Comment: HIATAL HERNIA/GASTROSTOMY TUBE 2012 - Genitourinary/Gynecological Hx Genitourinary Disorders: Yes Hx Hematuria: Yes Hx Incontinence: Yes Hx Prostate Cancer: Yes Hx Prostate Problems: Yes (PROSTATE CA) Other/Comment: HX: RETENTION. RODRIGUEZ CATHETER DEPENDENT - Psychiatric Hx Psychophysiologic Disorder: Yes Hx Anxiety: Yes Hx Substance Use: No - Past Surgical History Past Surgical History: Unable to Obtain - Surgical History Other/Comment: HIATAL HERNIA REPAIR; GT PLACEMENT - Anesthesia Hx Anesthesia: Yes Hx Anesthesia Reactions: No Hx Malignant Hyperthermia: No - Suicidal Assessment Feels Threatened In Home Enviroment: No Family/Social History - Physician Review Nursing Documentation Reviewed: Yes Family/Social History: No Known Family HX Smoking Status: Former Smoker Hx Alcohol Use: No Hx Substance Use: No Hx Substance Use Treatment: No Allergies/Home Meds Allergies/Adverse Reactions: Allergies No Known Allergies Allergy (Verified 09/13/17 08:27) Home Medications: Home Meds Medication Instructions Recorded Confirmed Omeprazole [Prilosec] 20 mg GT BID 11/17/13 12/13/17 Acetaminophen 650 mg GT Q4 PRN 10/24/15 12/13/17 Amlodipine Besylate [Norvasc] 10 mg GT DAILY 10/24/15 12/13/17 Aspirin [Aspirin Chewable] 81 mg GT DAILY 10/24/15 12/13/17 Latanoprost 0.005% Opht [Xalatan 1 drop OU HS 10/24/15 12/13/17 Opht] Magnesium Hydroxide [Milk Of 30 ml GT HS PRN 10/24/15 12/13/17 Magnesia] Melatonin 5 mg GT HS 10/24/15 12/13/17 Metoprolol Tartrate [Lopressor] 50 mg GT DAILY 10/24/15 12/13/17 Multivitamin [Multi-Delyn] 5 ml GT DAILY 10/24/15 12/13/17 Oxybutynin [Ditropan Tab] 2 tab GT DAILY 10/24/15 12/13/17 Vit C/Ascorbate Calcium,Sodium 500 mg GT DAILY 10/24/15 12/13/17 [Vitamin C 500 mg/15 ml Liquid] Senna [Senokot Syrup] 10 ml GT DAILY 07/30/16 12/13/17 Lactulose [Generlac] 10 gm GT PRN PRN 08/18/17 12/13/17 Amino Acids/Protein Hydrolys 30 ml GT BID 12/13/17 12/13/17 [Pro-Stat Profile 30 ml] Baclofen [Lioresal] 0.5 tab GT BID 12/13/17 12/13/17 Celecoxib [Celebrex] 200 mg GT DAILY 12/13/17 12/13/17 Gabapentin [Neurontin] 100 mg GT HS 12/13/17 12/13/17 Review of Systems - Physician Review All systems were reviewed & negative as marked: Yes - Review of Systems Constitutional: absent: Fevers, Night Sweats Respiratory: absent: SOB Cardiovascular: absent: Chest Pain Gastrointestinal: absent: Abdominal Pain, Nausea, Vomiting Genitourinary Male: Other (rodriguez catheter replacement) Physical Exam Vital Signs Reviewed: Yes Vital Signs Temp Pulse Resp BP Pulse Ox 12/13/17 08:35 98.6 F 79 18 119/87 99 12/13/17 07:02 97.7 F 64 18 134/65 99 Temperature: Afebrile Blood Pressure: Normal Pulse: Regular Respiratory Rate: Normal Appearance: Positive for: Well-Appearing, Non-Toxic, Comfortable Pain Distress: None Mental Status: Positive for: Alert and Oriented X 3 - Systems Exam Head: Present: Atraumatic, Normocephalic Pupils: Present: PERRL Extroacular Muscles: Present: EOMI Conjunctiva: Present: Normal Mouth: Present: Moist Mucous Membranes Neck: Present: Normal Range of Motion Respiratory/Chest: Present: Clear to Auscultation, Good Air Exchange. No: Respiratory Distress, Accessory Muscle Use Cardiovascular: Present: Regular Rate and Rhythm, Normal S1, S2. No: Murmurs Abdomen: Present: Normal Bowel Sounds. No: Tenderness, Distention, Peritoneal Signs Genitourinary Male: Present: Other (Suprapubic catheter) Back: Present: Normal Inspection Upper Extremity: Present: Normal Inspection. No: Cyanosis, Edema Lower Extremity: Present: Normal Inspection. No: Edema Neurological: Present: GCS=15, CN II-XII Intact, Speech Normal Skin: Present: Warm, Dry, Normal Color. No: Rashes Psychiatric: Present: Alert, Oriented x 3, Normal Insight, Normal Concentration Medical Decision Making ED Course and Treatment: 12/13/17 07:42 Impression: A 67 year old male sent in for evaluation concerning rodriguez catheter replacement. Patient denies any pain at this time. Prior Visits: Notes and results from previous visits were reviewed. Patient last seen by urologist on 11/12/17, who scheduled patient to replace suprapubic catheter after 4 weeks. Progress Notes: Attempted to flush catheter but was unsuccessful. Case discussed with urologist Dr. Romain Byrd at 07:40, who states will come to emergency room to replace catheter. Dr. Byrd replaced catheter in emergency room and agrees with plan to discharge patient home. Patient aware of and in agreement with plan. - Scribe Statement The provider has reviewed the documentation as recorded by the Ashwinibanabella Benitez Provider Scribe Attestation: All medical record entries made by the Scribe were at my direction and personally dictated by me. I have reviewed the chart and agree that the record accurately reflects my personal performance of the history, physical exam, medical decision making, and the department course for this patient. I have also personally directed, reviewed, and agree with the discharge instructions and disposition. Disposition/Present on Arrival - Present on Arrival Any Indicators Present on Arrival: Yes History of DVT/PE: No History of Uncontrolled Diabetes: No Urinary Catheter: Yes History of Decub. Ulcer: No History Surgical Site Infection Following: None - Disposition Have Diagnosis and Disposition been Completed?: Yes Diagnosis: Suprapubic catheter dysfunction Disposition: TRANSF TO SNF Disposition Time: 07:30 (.) Condition: IMPROVED Discharge Instructions (ExitCare): How to Care for Your Suprapubic Urinary Catheter Additional Instructions: JULIUS FERREIRA, thank you for letting us take care of you today. Your provider was Smith Geiger DO and you were treated for CATHETER PROBLEM. The emergency medical care you received today was directed at your acute symptoms. If you were prescribed any medication, please fill it and take as directed. It may take several days for your symptoms to resolve. Return to the Emergency Department if your symptoms worsen, do not improve, or if you have any other problems. Please contact your doctor or call one of the physicians/clinics you have been referred to that are listed on the Patient Visit Information form that is included in your discharge packet. Bring any paperwork you were given at discharge with you along with any medications you are taking to your follow up visit. Our treatment cannot replace ongoing medical care by a primary care provider outside of the emergency department. Thank you for allowing the [facility] team to be part of your care today. Follow up with Dr. Byrd as scheduled for catheter care. Referrals: Azul Tierney MD [Primary Care Provider] - Follow up with primary Forms: [employer] (Gabonese)
[2017-12-13 08:36] VITALS: BP 119/87; PULSE 79; TEMP 98.6
== END 2017-12-13 08:35 ==
LOC: ED 06:55
DX: T83.090A Other mechanical complication of cystostomy catheter, initial encounter (principal); E11.9 Type 2 diabetes mellitus without complications; I10 Essential (primary) hypertension; Z86.73 Personal history of transient ischemic attack (TIA), and cerebral infarction without residual deficits; Z87.891 Personal history of nicotine dependence

== ENCOUNTER 2018-04-04 07:18 | Emergency (ER) | payer MEDICARE, MEDICAID ==
[2018-04-04 07:20] VITALS: TEMP 98.6
[2018-04-04 07:21] VITALS: BMI 16.7
--- NOTE | 2018-04-04 08:46 | ED PDOC ---
Arrival/HPI - General Chief Complaint: GI Problem Time Seen by Provider: 04/04/18 08:38 Historian: Patient, Group Home - History of Present Illness Narrative History of Present Illness (Text): 04/04/18 08:00 67 year old male, whose past medical history includes hypertension, asthma, COPD, CVA and head/neck/throat cancer, presents to the Emergency department via EMS from [facility] for evaluation of G-tube dislodgment last night. As per [facility], patient's G-tube was dislodged last night and a Rodriguez Catheter was placed. At bedside, patient denies any somatic complaints. Patient denies fevers, chills, headache, dizziness, chest pain, shortness of breath, dyspnea on exertion, cough, abdominal pain, nausea, vomiting, diarrhea, back pain, neck pain, or any other complaint. PMD: Sam Thurman Urologist: Dr. Byrd Time/Duration: 24 hours Symptom Onset: Gradual Symptom Course: Unchanged Activities at Onset: Light Context: Other (Group Home) Past Medical History - Provider Review Nursing Documentation Reviewed: Yes - Infectious Disease Hx of Infectious Diseases: None - Tetanus Immunization Tetanus Immunization: Unknown - Cardiac Hx Cardiac Disorders: Yes Hx [place]: No Hx Hypertension: Yes - Pulmonary Hx Respiratory Disorders: Yes (THROAT CA, H/O TRACH PLACEMENT/reversal) Hx Asthma: Yes Hx Chronic Obstructive Pulmonary Disease (COPD): Yes Hx Emphysema: Yes Hx Respiratory Aspiration: Yes (ASPIRATION PRECAUTIONS DUE TO PEG FEEDING) Hx Sleep Apnea: No - Neurological Hx Neurological Disorder: Yes HX Cerebrovascular Accident: Yes Hx Paralysis: Yes (L HEMIPLEGIA) Hx Transient Ischemic Attacks (TIA): Yes - HEENT Hx HEENT Disorder: Yes Hx Blind: Yes (LEGALLY BLIND) Hx Cataracts: Yes (RETINAL DETACHMENT BILATERAL) Hx Glaucoma: Yes Other/Comment: TRACHEOSTOMY REVERSED - Renal Hx Renal Disorder: Yes (SUPRAPUBIC CATHETER) Hx Neurogenic Bladder: Yes (HEMATURIA/URINARY RETENTION) Other/Comment: RETENTION, SUPRAPUBIC RODRIGUEZ CATHETER - Endocrine/Metabolic Hx Endocrine Disorders: Yes Hx Diabetes Mellitus Type 2: Yes (no medication) - Hematological/Oncological Hx Blood Disorders: Yes Hx Anemia: Yes Hx Cancer: Yes (prostate, thoat) Hx Chemotherapy: Yes - Integumentary Hx Dermatological Disorder: Yes Hx Cellulitis: Yes (LOWER EXTREMITIES; HEALED) - Musculoskeletal/Rheumatological Hx Musculoskeletal Disorders: Yes Hx Falls: Yes Hx Unsteady Gait: Yes (BEDRIDDEN) - Gastrointestinal Hx Gastrointestinal Disorders: Yes Hx Diverticulitis: Yes Hx Hemorrhoids: Yes HX Swallowing Problems: Yes (throat CA) Other/Comment: HIATAL HERNIA/GASTROSTOMY TUBE 2012 - Genitourinary/Gynecological Hx Genitourinary Disorders: Yes Hx Hematuria: Yes Hx Incontinence: Yes Hx Prostate Cancer: Yes Hx Prostate Problems: Yes (PROSTATE CA) Other/Comment: HX: RETENTION. RODRIGUEZ CATHETER DEPENDENT - Psychiatric Hx Psychophysiologic Disorder: Yes Hx Anxiety: Yes Hx Substance Use: No - Past Surgical History Past Surgical History: Unable to Obtain - Surgical History Other/Comment: HIATAL HERNIA REPAIR; GT PLACEMENT - Anesthesia Hx Anesthesia: Yes Hx Anesthesia Reactions: No Hx Malignant Hyperthermia: No - Suicidal Assessment Feels Threatened In Home Enviroment: No Family/Social History - Physician Review Nursing Documentation Reviewed: Yes Family/Social History: Unknown Family HX Smoking Status: Former Smoker Hx Alcohol Use: No Hx Substance Use: No Hx Substance Use Treatment: No Allergies/Home Meds Allergies/Adverse Reactions: Allergies No Known Allergies Allergy (Verified 04/04/18 07:34) Home Medications: Home Meds Medication Instructions Recorded Confirmed Omeprazole [Prilosec] 20 mg GT BID 11/17/13 12/13/17 Acetaminophen 650 mg GT Q4 PRN 10/24/15 12/13/17 Amlodipine Besylate [Norvasc] 10 mg GT DAILY 10/24/15 12/13/17 Aspirin [Aspirin Chewable] 81 mg GT DAILY 10/24/15 12/13/17 Latanoprost 0.005% Opht [Xalatan 1 drop OU HS 10/24/15 12/13/17 Opht] Magnesium Hydroxide [Milk Of 30 ml GT HS PRN 10/24/15 12/13/17 Magnesia] Melatonin 5 mg GT HS 10/24/15 12/13/17 Metoprolol Tartrate [Lopressor] 50 mg GT DAILY 10/24/15 12/13/17 Multivitamin [Multi-Delyn] 5 ml GT DAILY 10/24/15 12/13/17 Oxybutynin [Ditropan Tab] 2 tab GT DAILY 10/24/15 12/13/17 Vit C/Ascorbate Calcium,Sodium 500 mg GT DAILY 10/24/15 12/13/17 [Vitamin C 500 mg/15 ml Liquid] Senna [Senokot Syrup] 10 ml GT DAILY 07/30/16 12/13/17 Lactulose [Generlac] 10 gm GT PRN PRN 08/18/17 12/13/17 Amino Acids/Protein Hydrolys 30 ml GT BID 12/13/17 12/13/17 [Pro-Stat Profile 30 ml] Baclofen [Lioresal] 0.5 tab GT BID 12/13/17 12/13/17 Celecoxib [Celebrex] 200 mg GT DAILY 12/13/17 12/13/17 Gabapentin [Neurontin] 100 mg GT HS 12/13/17 12/13/17 Review of Systems - Physician Review All systems were reviewed & negative as marked: Yes - Review of Systems Constitutional: absent: Fevers Respiratory: absent: SOB, Cough Cardiovascular: absent: Chest Pain, CHAKRABORTY Gastrointestinal: absent: Abdominal Pain, Diarrhea, Nausea, Vomiting Musculoskeletal: absent: Back Pain, Neck Pain Neurological: absent: Headache, Dizziness Physical Exam - Physical Exam Narrative Physical Exam (Text): 04/04/18 08:00 Gen: VS reviewed, alert, cachectic , nontoxic, mild distress. ENT: normal pharynx. Eye: EOMI, PERRL. Neck: no JVD, supple, no adenopathy. CV: regular rate, regular rhythm, no rubs, no murmur, no gallops, S1, S2, pulses equal and strong. Pulm: no distress, clear to auscultation, no wheeze, no rhonchi, breath sounds equal, no rales. Abd: soft, nontender, no guarding, no rebound, no rigidity, normal bowel sounds. Rodriguez Catheter in place. Stoma appears clean, dry and intact. Ext: no edema. Flaccid process of left arm. Skin: good color, no rash, no cyanosis. Psych: responds appropriately to questions, normal affect. Neuro: oriented x 3, CN2-12 intact grossly, motor intact, sensation intact. Vital Signs Reviewed: Yes Vital Signs Temp Pulse Resp BP Pulse Ox 04/04/18 07:20 98.6 F 78 18 141/80 99 Temperature: Afebrile Blood Pressure: Normal Pulse: Regular Respiratory Rate: Normal Appearance: Positive for: Non-Toxic, Comfortable, Cachectic Pain Distress: Mild Mental Status: Positive for: Alert and Oriented X 3 Medical Decision Making ED Course and Treatment: 04/04/18 08:00 Impression: 67 year old male presents to the Emergency department for evaluation of dislodged G-tube. Plan: -- Reassess and disposition Prior Visits: Notes and results from previous visits were reviewed. Progress Notes: 04/04/18 09:25 Discussed case with LETY, Dr. Mixon, who is aware and will arrange for ER consult for PEG tube replacement. 04/04/18 09:51 feeding tube replaced by Dr. colton DAVIDSON, performed at bedside. states patient can be discharged back to [place]. - Scribe Statement The provider has reviewed the documentation as recorded by the Scribe Pauly Villela. All medical record entries made by the Scribe were at my direction and personally dictated by me. I have reviewed the chart and agree that the record accurately reflects my personal performance of the history, physical exam, medical decision making, and the department course for this patient. I have also personally directed, reviewed, and agree with the discharge instructions and disposition. Disposition/Present on Arrival - Present on Arrival Any Indicators Present on Arrival: No History of DVT/PE: No History of Uncontrolled Diabetes: No Urinary Catheter: Yes History of Decub. Ulcer: No History Surgical Site Infection Following: None - Disposition Have Diagnosis and Disposition been Completed?: Yes Diagnosis: Complication of feeding tube Disposition: HOME/ ROUTINE Disposition Time: 09:52 Patient Plan: Discharge Condition: STABLE Additional Instructions: Feeding tube was successfully replaced in the ED today. JULUIS FERREIRA, thank you for letting us take care of you today. Your provider was Dr. Nelson Velazquez and you were treated for feeding tube replacement. The emergency medical care you received today was directed at your acute symptoms. If you were prescribed any medication, please fill it and take as directed. It may take several days for your symptoms to resolve. Return to the Emergency Department if your symptoms worsen, do not improve, or if you have any other problems. Please contact your doctor or call one of the physicians/clinics you have been referred to that are listed on the Patient Visit Information form that is included in your discharge packet. Bring any paperwork you were given at discharge with you along with any medications you are taking to your follow up visit. Our treatment cannot replace ongoing medical care by a primary care provider outside of the emergency department. Thank you for allowing the [facility] team to be part of your care today. If you had an X-Ray or CT scan: A Radiologist will review the ED reading if any change in treatment is needed we will contact you. If you had a blood, urine, or wound culture: It will take several days for the results, if any change in treatment is needed we will contact you. If you had an STI test: It will take 48 hours for the results. Please call after 1 week if you have not heard back. Forms: [employer] ([place]ian)
[2018-04-04 10:12] VITALS: BP 121/68; PULSE 85; RESP 17; O2SAT 97
--- NOTE | 2018-04-04 11:28 | CP.PCM.CON ---
History of Present Illness - History of Present Illness History of Present Illness: GI Fellow PGY4 Consult note. ED consulted Dr. Mixon to replace malfunctioning G-tube. Patient is seed in the ED. He is well known to Dr. Mixon. G-tube had been dislodged recently and replaced with Rodriguez. Patient was pleasant and in no acute complaints. Patient wishes to go home, and does not want to be admitted to hospital. 12pt ROS completed and negative except for above. Past Patient History - Infectious Disease Hx of Infectious Diseases: None - Tetanus Immunizations Tetanus Immunization: Unknown - Past Medical History & Family History Past Medical History?: Yes - Past Social History Smoking Status: Former Smoker - CARDIAC Hx Cardiac Disorders: Yes Hx Heart Attack: No Hx Hypertension: Yes - PULMONARY Hx Respiratory Disorders: Yes (THROAT CA, H/O TRACH PLACEMENT/reversal) Hx Asthma: Yes Hx Chronic Obstructive Pulmonary Disease (COPD): Yes Hx Emphysema: Yes Hx Respiratory Aspiration: Yes (ASPIRATION PRECAUTIONS DUE TO PEG FEEDING) Hx Sleep Apnea: No - NEUROLOGICAL Hx Neurological Disorder: Yes HX Cerebrovascular Accident: Yes Hx Paralysis: Yes (L HEMIPLEGIA) Hx Transient Ischemic Attacks (TIA): Yes - HEENT Hx HEENT Problems: Yes Hx Blind: Yes (LEGALLY BLIND) Hx Cataracts: Yes (RETINAL DETACHMENT BILATERAL) Hx Glaucoma: Yes Other/Comment: TRACHEOSTOMY REVERSED - RENAL Hx Chronic Kidney Disease: Yes (SUPRAPUBIC CATHETER) Hx Neurogenic Bladder: Yes (HEMATURIA/URINARY RETENTION) Other/Comment: RETENTION, SUPRAPUBIC RODRIGUEZ CATHETER - ENDOCRINE/METABOLIC Hx Endocrine Disorders: Yes Hx Diabetes Mellitus Type 2: Yes (no medication) - HEMATOLOGICAL/ONCOLOGICAL Hx Blood Disorders: Yes Hx Anemia: Yes Hx Cancer: Yes (prostate, thoat) Hx Chemotherapy: Yes - INTEGUMENTARY Hx Dermatological Problems: Yes Hx Cellulitis: Yes (LOWER EXTREMITIES; HEALED) - MUSCULOSKELETAL/RHEUMATOLOGICAL Hx Musculoskeletal Disorders: Yes Hx Falls: Yes Hx Unsteady Gait: Yes (BEDRIDDEN) - GASTROINTESTINAL Hx Gastrointestinal Disorders: Yes Hx Diverticulitis: Yes Hx Hemorrhoids: Yes HX Swallowing Problems: Yes (throat CA) Other/Comment: HIATAL HERNIA/GASTROSTOMY TUBE 2012 - GENITOURINARY/GYNECOLOGICAL Hx Genitourinary Disorders: Yes Hx Hematuria: Yes Hx Incontinence: Yes Hx Prostate Cancer: Yes Hx Prostate Problems: Yes (PROSTATE CA) Other/Comment: HX: RETENTION. RODRIGUEZ CATHETER DEPENDENT - PSYCHIATRIC Hx Psychophysiologic Disorder: Yes Hx Anxiety: Yes Hx Substance Use: No - SURGICAL HISTORY Other/Comment: HIATAL HERNIA REPAIR; GT PLACEMENT - ANESTHESIA Hx Anesthesia: Yes Hx Anesthesia Reactions: No Hx Malignant Hyperthermia: No Meds Allergies/Adverse Reactions: Allergies Allergy/AdvReac Type Severity Reaction Status Date / Time No Known Allergies Allergy Verified 04/04/18 07:34 Physical Exam - Constitutional Appears: Non-toxic, No Acute Distress - Eye Exam Eye Exam: Normal appearance - ENT Exam ENT Exam: Mucous Membranes Moist - Respiratory Exam Respiratory Exam: NORMAL BREATHING PATTERN. absent: Respiratory Distress - Cardiovascular Exam Cardiovascular Exam: REGULAR RHYTHM. absent: Bradycardia, Tachycardia - GI/Abdominal Exam GI & Abdominal Exam: Normal Bowel Sounds, Soft. absent: Organomegaly Additional comments: Rodriguez in site of stoma. No signs of infection - Extremities Exam Extremities exam: Positive for: normal inspection. Negative for: tenderness - Neurological Exam Neurological exam: Alert, CN II-XII Intact, Oriented x3 - Psychiatric Exam Psychiatric exam: Normal Mood - Skin Skin Exam: Dry, Normal Color, Warm Results - Vital Signs Recent Vital Signs: Last Vital Signs Temp 98.6 F 04/04/18 07:20 Pulse 85 04/04/18 10:12 Resp 17 04/04/18 10:12 BP 121/68 04/04/18 10:12 Pulse Ox 97 04/04/18 10:12 Assessment & Plan - Assessment and Plan (Free Text) Assessment: #Malfunction G-tube PLAN: -Replace Rodriguez with new G-tube. Procedure note: At bed side, stoma site was prepared with sterile water. Stoma was lubricated and Rodriguez balloon deflated. Rodriguez removed and a new 20Fr, 3 port, [employer] G-tube was insterted. Balloon was inflated with 6cc sterile water. G- tube was flushed easily indicating it was functional. External bumper was placed at 3cm and there was 1cm mobility. Stoma was cleaned and covered with 4x4. - Date & Time Date: 04/04/18 Time: 11:32
== END 2018-04-04 10:30 | disposition home or self-care (01) ==
LOC: ED 07:18
DX: K94.23 Gastrostomy malfunction (principal); Y84.8 Other medical procedures as the cause of abnormal reaction of the patient, or of later complication, without mention of misadventure at the time of the procedure; Y92.89 Other specified places as the place of occurrence of the external cause

== ENCOUNTER 2018-04-14 11:59 | Inpatient (IN) | payer MEDICARE, MEDICAID ==
[2018-04-14 11:59] VITALS: BMI 16.7
--- NOTE | 2018-04-14 12:42 | ED PDOC ---
Arrival/HPI - General Chief Complaint: Male Genitourinary Historian: Patient, EMS - History of Present Illness Narrative History of Present Illness (Text): 04/14/18 12:27 67 y/o male, pmh including htn/asthma/copd/headneckthroat cancer, nkda, biba, for leaking suprapubic catheter x 2 days. Pt. stated that he feels well, eating and drinking well but he stated that the suprapubic catheter has not been working for 2 days, no fever or chills, no headache or night sweat, no rash, no dizziness, no other medical or psychological complaints. Past Medical History - Provider Review Nursing Documentation Reviewed: Yes - Infectious Disease Hx of Infectious Diseases: None - Tetanus Immunization Tetanus Immunization: Unknown - Cardiac Hx Cardiac Disorders: Yes Hx Hypertension: Yes - Pulmonary Hx Respiratory Disorders: Yes Hx Asthma: Yes Hx Chronic Obstructive Pulmonary Disease (COPD): Yes Hx Emphysema: Yes Hx Respiratory Aspiration: Yes - Neurological Hx Neurological Disorder: Yes HX Cerebrovascular Accident: Yes Hx Paralysis: Yes Hx Transient Ischemic Attacks (TIA): Yes - HEENT Hx HEENT Disorder: Yes Hx Blind: Yes Hx Cataracts: Yes (RETINAL DETACHMENT BILATERAL) Hx Glaucoma: Yes Other/Comment: TRACHEOSTOMY R/T THROAT CA; REVERSED - Renal Hx Renal Disorder: Yes (SUPRAPUBIC CATHETER) Hx Neurogenic Bladder: Yes Other/Comment: RETENTION, SUPRAPUBIC RODRIGUEZ CATHETER - Endocrine/Metabolic Hx Endocrine Disorders: Yes Hx Diabetes Mellitus Type 2: Yes - Hematological/Oncological Hx Blood Disorders: Yes Hx Anemia: Yes Hx Cancer: Yes Hx Chemotherapy: Yes - Integumentary Hx Dermatological Disorder: Yes Hx Cellulitis: Yes - Musculoskeletal/Rheumatological Hx Musculoskeletal Disorders: Yes Hx Falls: Yes Hx Unsteady Gait: Yes (BEDRIDDEN) - Gastrointestinal Hx Gastrointestinal Disorders: Yes Hx Diverticulitis: Yes Hx Hemorrhoids: Yes HX Swallowing Problems: Yes Other/Comment: HIATAL HERNIA, GASTROSTOMY TUBE - Genitourinary/Gynecological Hx Genitourinary Disorders: Yes Hx Hematuria: Yes Hx Incontinence: Yes Hx Prostate Cancer: Yes Hx Prostate Problems: Yes - Psychiatric Hx Psychophysiologic Disorder: Yes Hx Anxiety: Yes Hx Substance Use: No - Past Surgical History Past Surgical History: Unable to Obtain - Surgical History Other/Comment: HIATAL HERNIA REPAIR; GT PLACEMENT, SUPRA PUBIC CATHETER, TRACH WITH REVERSAL - Anesthesia Hx Anesthesia: Yes Hx Anesthesia Reactions: No Hx Malignant Hyperthermia: No - Suicidal Assessment Feels Threatened In Home Enviroment: No Family/Social History - Physician Review Nursing Documentation Reviewed: Yes Family/Social History: Unknown Family HX Smoking Status: Former Smoker Hx Alcohol Use: No Hx Substance Use: No Hx Substance Use Treatment: No Allergies/Home Meds Allergies/Adverse Reactions: Allergies No Known Allergies Allergy (Verified 04/14/18 12:04) Home Medications: Home Meds Medication Instructions Recorded Confirmed Acetaminophen 650 mg GT Q4 PRN 10/24/15 04/14/18 Amlodipine Besylate [Norvasc] 10 mg GT DAILY 10/24/15 04/14/18 Aspirin [Aspirin Chewable] 81 mg GT DAILY 10/24/15 04/14/18 Latanoprost 0.005% Opht [Xalatan 1 drop OU HS 10/24/15 04/14/18 Opht] Magnesium Hydroxide [Milk Of 30 ml GT HS PRN 10/24/15 04/14/18 Magnesia] Melatonin 5 mg GT HS 10/24/15 04/14/18 Metoprolol Tartrate [Lopressor] 50 mg GT DAILY 10/24/15 04/14/18 Multivitamin [Multi-Delyn] 5 ml GT DAILY 10/24/15 04/14/18 Oxybutynin [Ditropan Tab] 2 tab GT DAILY 10/24/15 04/14/18 Vit C/Ascorbate Calcium,Sodium 500 mg GT DAILY 10/24/15 04/14/18 [Vitamin C 500 mg/15 ml Liquid] Senna [Senokot Syrup] 10 ml GT DAILY 07/30/16 04/14/18 Amino Acids/Protein Hydrolys 30 ml GT BID 12/13/17 04/14/18 [Pro-Stat Profile 30 ml] Baclofen [Lioresal] 0.5 tab GT BID 12/13/17 04/14/18 Celecoxib [Celebrex] 200 mg GT DAILY 12/13/17 04/14/18 Gabapentin [Neurontin] 100 mg GT HS 12/13/17 04/14/18 Mupirocin 2% Cream [Bactroban 1 applic TOP DAILY 04/14/18 04/14/18 Cream] Zinc Oxide 1 applic TOP Q8 04/14/18 04/14/18 Review of Systems - Review of Systems Constitutional: absent: Fatigue, Fevers Eyes: absent: Vision Changes ENT: absent: Hearing Changes Respiratory: absent: SOB, Cough, Sputum Cardiovascular: absent: Chest Pain Gastrointestinal: absent: Abdominal Pain, Diarrhea, Nausea, Vomiting Musculoskeletal: absent: Arthralgias, Back Pain Skin: absent: Rash, Pruritis Neurological: absent: Headache, Dizziness Hemo/Lymphatic: absent: Adenopathy, Easy Bleeding Psychiatric: absent: Anxiety, Depression, Suicidal Ideation Physical Exam Vital Signs Reviewed: Yes Temperature: Afebrile Blood Pressure: Normal Pulse: Regular Respiratory Rate: Normal Appearance: Positive for: Well-Appearing, Non-Toxic, Comfortable Pain Distress: None Mental Status: Positive for: Alert and Oriented X 3 - Systems Exam Head: Present: Atraumatic, Normocephalic Pupils: Present: PERRL Extroacular Muscles: Present: EOMI Conjunctiva: Present: Normal Mouth: Present: Moist Mucous Membranes Neck: Present: Normal Range of Motion Respiratory/Chest: Present: Clear to Auscultation, Good Air Exchange. No: Respiratory Distress, Accessory Muscle Use Cardiovascular: Present: Regular Rate and Rhythm, Normal S1, S2. No: Murmurs Abdomen: Present: Other (rt. lower suprapubic region visible noted with suprapubic catheter noted with mild leaking noted surrounding, there is dark yellow urine in the bag. ). No: Tenderness, Distention, Peritoneal Signs, Rebound, Guarding Back: Present: Normal Inspection Upper Extremity: Present: Normal Inspection. No: Cyanosis, Edema Lower Extremity: Present: Normal Inspection. No: Edema Neurological: Present: GCS=15, CN II-XII Intact, Speech Normal Skin: Present: Warm, Dry, Normal Color. No: Rashes Psychiatric: Present: Alert, Oriented x 3, Normal Insight, Normal Concentration Medical Decision Making ED Course and Treatment: 04/14/18 12:49 -Labs/ua -CXR -will page out to DR. Byrd 04/14/18 13:34 -Bladder scanner show there is 164cc of urine. -Paged Dr. Byrd 04/14/18 13:49 -I spoke to Dr. Germaine Byrd, discussed about the exam and case, he would come to the ER now to evaluate the patient. 04/14/18 16:06 -Chest xray show: No active pulmonary disease. -Labs show no acute findings. -UA show +yeast (diflucan ordered), +bacterial UTI (rocephine 1gm IV ordered). -Pt. feels well but has suprapubic discomfort, UTI noted, morphine ordered for pain, -I explained to Dr. Byrd about this case and he stated that he is in another procedure, recommend to admit the patient to DR. Tierney service and would come to change it later as I the suprapubic catheter can't be flushed as it is occluded as I tried with Dr. Geiger, Paging Dr. Tierney for admission. 04/14/18 16:35 -I spoke to Dr. Tierney about this case including labs/radiology result, agreed on admission to her service with Dr. Pichardo and Dr. Byrd on the consult. - RAD Interpretation Radiology Orders: Date of service: 04/14/2018 HISTORY: medical clearance COMPARISON: 08/18/2017 FINDINGS: LUNGS: The lungs are well inflated and clear. PLEURA: No pleural effusions or pneumothorax. CARDIOVASCULAR: The heart is normal in size. Atherosclerotic aortic arch calcifications are present. OSSEOUS STRUCTURES: Within normal limits for the patient's age. VISUALIZED UPPER ABDOMEN: Normal. OTHER FINDINGS: None. IMPRESSION: No active pulmonary disease. Obstetrics And Gynecology Professor: Radiologist - PA / APARTMENT MAINTENANCE MANAGER / Resident Statement MD/DO has reviewed & agrees with the documentation as recorded. Disposition/Present on Arrival - Present on Arrival Any Indicators Present on Arrival: No History of DVT/PE: No History of Uncontrolled Diabetes: No Urinary Catheter: Yes History of Decub. Ulcer: No History Surgical Site Infection Following: None - Disposition Have Diagnosis and Disposition been Completed?: Yes Diagnosis: Suprapubic catheter, UTI (urinary tract infection) Disposition: HOSPITALIZED Disposition Time: 16:08 Patient Plan: Admission, Observation Patient Problems: Current Active Problems Problem Status Onset Suprapubic catheter Acute UTI (urinary tract infection) Acute Condition: STABLE Forms: [employer] ([place])
[2018-04-14 13:24] LABS: BASO # 0.04 K/mm3 (0.0-2.0); BASO % 0.5 % (0.0-3.0); EOS # 0.2 (0.0-0.7); EOS % 3.2 % (1.5-5.0); GRAN # 5.2 (1.4-6.5); GRAN % 70.1 % (50.0-68.0); HEMOGLOBIN 16.3 g/dL (14.0-18.0); LYMPH # 1.3 (1.2-3.4); LYMPH % 17.6 % (22.0-35.0); MEAN CELL VOLUME 93.4 fl (80.0-105.0); MEAN CORPUSCULAR HEMOGLOBIN 31.5 pg (25.0-35.0); MEAN CORPUSCULAR HGB CONC 33.7 g/dl (31.0-37.0); MONO # 0.6 (0.1-0.6); MONO % 8.6 % (1.0-6.0); RBC 5.18 10^6/uL (3.5-6.1); RED CELL DISTRIBUTION WIDTH 14.3 % (11.5-14.5); WHITE BLOOD COUNT 7.4 10^3/uL (4.5-11.0)
--- NOTE | 2018-04-14 13:47 | RAD ---
Date of service: 04/14/2018 HISTORY: medical clearance COMPARISON: 08/18/2017 FINDINGS: LUNGS: The lungs are well inflated and clear. PLEURA: No pleural effusions or pneumothorax. CARDIOVASCULAR: The heart is normal in size. Atherosclerotic aortic arch calcifications are present. OSSEOUS STRUCTURES: Within normal limits for the patient's age. VISUALIZED UPPER ABDOMEN: Normal. OTHER FINDINGS: None. IMPRESSION: No active pulmonary disease.
[2018-04-14 14:12] LABS: PH,URINE >=9.0 (4.7-8.0); URINE BILIRUBIN NEGATIVE (NEGATIVE); URINE BLOOD NEGATIVE (NEGATIVE); URINE GLUCOSE (UA) NEGATIVE (NEGATIVE); URINE LEUKOCYTE ESTERASE LARGE Leu/uL (NEGATIVE); URINE PROTEIN 30 mg/dL (<30 mg/dL)
[2018-04-14 14:17] LABS: URINE APPEARANCE CLOUDY (CLEAR); URINE COLOR LIGHT YELLOW (YELLOW)
[2018-04-14 14:19] LABS: URINE EPITHELIAL CELLS 0 - 2 /hpf (0-5); URINE WBC TNTC /hpf (0-6)
[2018-04-14 14:20] LABS: URINE BACTERIA MANY (NEG); URINE COARSE GRANULAR CAST TRACE /hpf (0-2); URINE TRIPLE PHOSPHATE CRYSTAL SMALL /hpf
[2018-04-14 14:21] LABS: URINE AMORPHOUS SEDIMENT MODERATE
[2018-04-14 14:29] LABS: ALT/SGPT 22 U/L (7-56); AST/SGOT 20 U/L (17-59); BLOOD UREA NITROGEN 14 mg/dL (7-21); GFR NON-AFRICAN AMERICAN > 60
[2018-04-14] MEDS ORDERED: cefTRIAXone 1 gm 1 GM/100 ML BAG IVPB STA (16:06)
[2018-04-14] MEDS ORDERED: Morphine 4 mg/ml ISec IVP STA (16:06)
[2018-04-14] MEDS ORDERED: Magnesium Hydroxide Susp 30 ml UD GT PRN (23:24)
[2018-04-15] MEDS: Acetaminophen 650mg/20.3ml solution UD GT PRN ×3 (03:33→17:04)
[2018-04-15] MEDS: Multivitamin Oral Soln GT SCH (09:08)
[2018-04-15] MEDS: Mupirocin 2% Ointment 15 GM TUBE TOP SCH (09:08)
[2018-04-15] MEDS: Pantoprazole 20 mg EC Tab PO SCH ×2 (09:15→23:00)
[2018-04-15 10:59] LABS: URINE BILIRUBIN NEGATIVE (NEGATIVE); URINE BLOOD LARGE (NEGATIVE); URINE GLUCOSE (UA) NEGATIVE (NEGATIVE); URINE LEUKOCYTE ESTERASE LARGE Leu/uL (NEGATIVE); URINE PROTEIN NEGATIVE mg/dL (<30 mg/dL); URINE UROBILINOGEN 0.2 E.U./dL (<1 E.U./dL)
[2018-04-15 11:00] LABS: URINE APPEARANCE TURBID (CLEAR); URINE COLOR YELLOW (YELLOW)
[2018-04-15 11:04] LABS: URINE BACTERIA FEW (NEG); URINE WBC TNTC /hpf (0-6)
[2018-04-15] MEDS: Cefepime 1gm in NS 100ml 1 GM/100 ML BAG IVPB SCH ×2 (11:22→22:58)
[2018-04-15] MEDS: Non Formulary Medication (Celecoxib [Celebrex] 200 MG) GT SCH (13:15)
[2018-04-15] MEDS: Zinc Oxide Topical 40% Oint (Desitin) TOP SCH ×2 (13:15→22:05)
[2018-04-15] MEDS: Prostat 15 g packet GT SCH (13:16)
[2018-04-15] MEDS: SENNA GT SCH (13:16)
[2018-04-15] MEDS: [UNRECOGNIZED DRUG - OTHER] GT SCH (13:17)
[2018-04-15] MEDS: ASCORBIC ACID GT SCH (13:17)
--- NOTE | 2018-04-15 16:21 | CP.PCM.CON ---
History of Present Illness - History of Present Illness History of Present Illness: Infectious Disease Consultation: April 15, 2018 67 yo AA male with dysfunction of the suprapubic catheter for at least 2 days. The patient has an extensive medical history that includes HTN, Asthma, COPD, history of head and neck cancer, CVA, legal blindness, and hiatal hernia. Urinalysis suggestive of a UTI. Cultures of urine pending. PMHx: HTN, Asthma, COPD, history of head and neck cancer, CVA, legal blindness, and hiatal hernia PSHx: Head and Neck debulking surgery, PEG placement, Suprapubic catheter placement. Allergies: NKDA Social Hx: No tobacco, EtOH, or illicit drug use. jail resident of [facility] Active Medications Acetaminophen (Tylenol 650mg/20.3ml Solution Ud) 650 mg GT Q4 PRN PRN Reason: Pain, Mild (1-3) Last Admin: 04/15/18 09:14 Dose: 650 mg Amino Acid Protein (Prostat 15 G Packet) [address] [facility] Last Admin: 04/15/18 13:16 Dose: Not Given Amlodipine Besylate (Norvasc) [address] [facility] Last Admin: 04/15/18 09:15 Dose: 10 mg Aspirin (Aspirin Chewable) 81 mg GT DAILY [facility] Last Admin: 04/15/18 09:15 Dose: 81 mg Baclofen (Lioresal) 5 mg NG BID [facility] Last Admin: 04/15/18 09:15 Dose: 5 mg Gabapentin (Neurontin) 100 mg GT HS [facility]; Protocol Cefepime HCl (Maxipime 1gm) 1 gm in 100 mls @ 100 mls/hr IVPB Q12 [facility]; Protocol Last Admin: 04/15/18 11:22 Dose: 100 mls/hr Latanoprost (Xalatan Opht) 0 ml OU HS [facility] Magnesium Hydroxide (Milk Of Magnesia) 30 ml GT HS PRN PRN Reason: Constipation Metoprolol Tartrate (Lopressor) [address] [facility] Last Admin: 04/15/18 09:16 Dose: 50 mg Multivitamins/Vitamin C (Theravite Oral Soln) 5 ml GT DAILY [facility] Last Admin: 04/15/18 09:08 Dose: 5 ml Mupirocin (Bactroban Ointment) 0 gm TOP DAILY [facility] Last Admin: 04/15/18 09:08 Dose: 1 applic Non-Formulary Medication (Celecoxib [Celebrex]) [address] [facility] Last Admin: 04/15/18 13:15 Dose: Not Given Non-Formulary Medication (Melatonin [Melatonin]) [address] [facility] Non-Formulary Medication (Senna) [address] [facility] Last Admin: 04/15/18 13:16 Dose: Not Given Non-Formulary Medication (Vit C/Ascorbate Calcium,Sodium [Vitamin C 500 Mg/15 Ml Liquid]) [address] [facility] Last Admin: 04/15/18 13:17 Dose: Not Given Oxybutynin Chloride (Ditropan Tab) [address] [facility] Last Admin: 04/15/18 13:16 Dose: 10 mg Pantoprazole Sodium (Protonix Ec Tab) [address] [facility] Last Admin: 04/15/18 09:15 Dose: 20 mg Petrolatum (Desitin Maximum Strength Topical 40% Oint) [address] [facility] Last Admin: 04/15/18 13:15 Dose: 1 applic Family Hx: noncontributory ROS: No fevers, chills, nausea, vomiting, chest pain, abdominal pain, melena, hematur ia, hematemesis, hematochezia, depression, anxiety, loss of consciousness. Past Patient History - Infectious Disease Hx of Infectious Diseases: None - Tetanus Immunizations Tetanus Immunization: Unknown - Past Medical History & Family History Past Medical History?: Yes - Past Social History Smoking Status: Former Smoker - CARDIAC Hx Hypertension: Yes - PULMONARY Hx Respiratory Disorders: Yes Hx Asthma: Yes Hx Chronic Obstructive Pulmonary Disease (COPD): Yes Hx Emphysema: Yes Hx Respiratory Aspiration: Yes - NEUROLOGICAL HX Cerebrovascular Accident: Yes (left arm contracted) - HEENT Hx HEENT Problems: Yes Hx Blind: Yes Hx Cataracts: Yes (RETINAL DETACHMENT BILATERAL) Hx Glaucoma: Yes Other/Comment: TRACHEOSTOMY R/T THROAT CA; REVERSED - RENAL Other/Comment: RETENTION, SUPRAPUBIC RODRIGUEZ CATHETER - ENDOCRINE/METABOLIC Hx Endocrine Disorders: Yes Hx Diabetes Mellitus Type 2: Yes - HEMATOLOGICAL/ONCOLOGICAL Hx Anemia: Yes Hx Cancer: Yes (prostate) Hx Chemotherapy: Yes - INTEGUMENTARY Hx Dermatological Problems: Yes - MUSCULOSKELETAL/RHEUMATOLOGICAL Hx Falls: Yes - GASTROINTESTINAL HX Swallowing Problems: Yes Other/Comment: HIATAL HERNIA, GASTROSTOMY TUBE - GENITOURINARY/GYNECOLOGICAL Hx Genitourinary Disorders: Yes Hx Hematuria: Yes Hx Incontinence: Yes Hx Prostate Problems: Yes - PSYCHIATRIC Hx Psychophysiologic Disorder: Yes Hx Anxiety: Yes - SURGICAL HISTORY Other/Comment: HIATAL HERNIA REPAIR; GT PLACEMENT, SUPRA PUBIC CATHETER, TRACH WITH REVERSAL - ANESTHESIA Hx Anesthesia: Yes Hx Anesthesia Reactions: No Hx Malignant Hyperthermia: No Meds Allergies/Adverse Reactions: Allergies Allergy/AdvReac Type Severity Reaction Status Date / Time No Known Allergies Allergy Verified 04/14/18 12:04 - Medications Medications: Current Medications Acetaminophen (Tylenol 650mg/20.3ml Solution Ud) 650 mg GT Q4 PRN PRN Reason: Pain, Mild (1-3) Last Admin: 04/15/18 09:14 Dose: 650 mg Amino Acid Protein (Prostat 15 G Packet) [address] [facility] Last Admin: 04/15/18 13:16 Dose: Not Given Amlodipine Besylate (Norvasc) [address] [facility] Last Admin: 04/15/18 09:15 Dose: 10 mg Aspirin (Aspirin Chewable) [address] [facility] Last Admin: 04/15/18 09:15 Dose: 81 mg Baclofen (Lioresal) [address] [facility] Last Admin: 04/15/18 09:15 Dose: 5 mg Gabapentin (Neurontin) 100 mg GT HS [facility]; Protocol Cefepime HCl (Maxipime 1gm) 1 gm in 100 mls @ 100 mls/hr IVPB Q12 [facility]; Protocol Last Admin: 04/15/18 11:22 Dose: 100 mls/hr Latanoprost (Xalatan Opht) 0 ml OU HS [facility] Magnesium Hydroxide (Milk Of Magnesia) 30 ml GT HS PRN PRN Reason: Constipation Metoprolol Tartrate (Lopressor) [address] [facility] Last Admin: 04/15/18 09:16 Dose: 50 mg Multivitamins/Vitamin C (Theravite Oral Soln) [address] [facility] Last Admin: 04/15/18 09:08 Dose: 5 ml Mupirocin (Bactroban Ointment) [address] [facility] Last Admin: 04/15/18 09:08 Dose: 1 applic Non-Formulary Medication (Celecoxib [Celebrex]) [address] [facility] Last Admin: 11/09/18 13:15 Dose: Not Given Non-Formulary Medication (Melatonin [Melatonin]) [address] [facility] Non-Formulary Medication (Senna) [address] [facility] Last Admin: 04/15/18 13:16 Dose: Not Given Non-Formulary Medication (Vit C/Ascorbate Calcium,Sodium [Vitamin C 500 Mg/15 Ml Liquid]) [address] [facility] Last Admin: 04/15/18 13:17 Dose: Not Given Oxybutynin Chloride (Ditropan Tab) [address] [facility] Last Admin: 04/15/18 13:16 Dose: 10 mg Pantoprazole Sodium (Protonix Ec Tab) [address] [facility] Last Admin: 04/15/18 09:15 Dose: 20 mg Petrolatum (Desitin Maximum Strength Topical 40% Oint) [address] [facility] Last Admin: 04/15/18 13:15 Dose: 1 applic Physical Exam - Constitutional Appears: Non-toxic, No Acute Distress, Chronically Ill - Head Exam Head Exam: ATRAUMATIC, NORMOCEPHALIC - Eye Exam Additional comments: legally blind. - ENT Exam ENT Exam: Mucous Membranes Moist, Normal External Ear Exam, TM's Normal Bilaterally - Neck Exam Neck exam: Positive for: Full Rom, Normal Inspection - Respiratory Exam Respiratory Exam: Clear to Auscultation Bilateral, NORMAL BREATHING PATTERN. absent: Rales, Rhonchi, Wheezes - Cardiovascular Exam Cardiovascular Exam: REGULAR RHYTHM, RRR, +S1, +S2 - GI/Abdominal Exam GI & Abdominal Exam: Normal Bowel Sounds, Soft. absent: Distended, Tenderness Additional comments: PEG in place. Suprapubic catheter in place. - Extremities Exam Extremities exam: Positive for: normal inspection. Negative for: joint swelling, pedal edema - Neurological Exam Neurological exam: Alert, CN II-XII Intact, Oriented x3 - Psychiatric Exam Psychiatric exam: Normal Affect, Normal Mood - Skin Skin Exam: Intact, Normal Color Results - Vital Signs Recent Vital Signs: Last Vital Signs Temp 97.3 F L 04/15/18 14:00 Pulse 74 04/15/18 14:00 Resp 18 04/15/18 14:00 BP 105/70 04/15/18 14:00 Pulse Ox 100 04/15/18 14:00 - Labs Result Diagrams: 04/14/18 13:00 04/14/18 14:00 Labs: Laboratory Results - last 24 hr 04/15/18 10:00 Urine Color Yellow Urine Appearance Turbid Urine pH 6.0 Ur Specific [place] 1.010 Urine Protein Negative Urine Glucose (UA) Negative Urine Ketones Negative Urine Blood Large H Urine Nitrate Positive H Urine Bilirubin Negative Urine Urobilinogen 0.2 Ur Leukocyte Esterase Large H Urine RBC 5 - 10 Urine WBC Tntc Urine Bacteria Few Assessment & Plan - Assessment and Plan (Free Text) Assessment: 67 yo AA male brought in to [facility] for dysfunction of the suprapubic catheter. The quality of the patient's urine and urinalysis was highly suggestive for UTI. Awaiting urine cultures to finalize antibiotic regimen. Possible discharge tomorrow. Thank you for allowing me to participate in the care of the patient, we will f naty with you.
[2018-04-15] MEDS: Latanoprost 2.5 ml Opht Soln OU SCH (22:59)
[2018-04-15] MEDS: MELATONIN 5 MG GT SCH (22:59)
[2018-04-16] MEDS: Zinc Oxide Topical 40% Oint (Desitin) TOP SCH ×4 (07:52→21:50)
[2018-04-16] MEDS: Pantoprazole 20 mg EC Tab PO SCH ×3 (07:53→15:47)
[2018-04-16] MEDS: Acetaminophen 650mg/20.3ml solution UD GT PRN ×3 (09:04→21:32)
[2018-04-16] MEDS: Multivitamin Oral Soln GT SCH (09:04)
[2018-04-16] MEDS: SENNA GT SCH (09:04)
[2018-04-16] MEDS: [UNRECOGNIZED DRUG - OTHER] GT SCH (09:05)
[2018-04-16] MEDS: ASCORBIC ACID GT SCH (09:05)
[2018-04-16] MEDS: Non Formulary Medication (Celecoxib [Celebrex] 200 MG) GT SCH (09:06)
[2018-04-16] MEDS: Cefepime 1gm in NS 100ml 1 GM/100 ML BAG IVPB SCH ×2 (09:06→21:32)
[2018-04-16] MEDS: Mupirocin 2% Ointment 15 GM TUBE TOP SCH (09:06)
[2018-04-16] MEDS: Prostat 15 g packet GT SCH ×2 (09:06→21:34)
--- NOTE | 2018-04-16 14:26 | CP.PCM.PN ---
Subjective - Date & Time of Evaluation Date of Evaluation: 04/16/18 Time of Evaluation: 13:30 - Subjective Subjective: Infectious Disease Follow Up: April 16, 2018 67 yo AA male with dysfunction of the suprapubic catheter for at least 2 days. The patient has an extensive medical history that includes HTN, Asthma, COPD, hi story of head and neck cancer, CVA, legal blindness, and hiatal hernia. Urinalysis suggestive of a UTI. Cultures of urine pending... showing gram negative rods. Currently on Cefepime for antibiotic coverage. Clinically the patient appears to be at baseline after suprapubic catheter exchange by Urology. Objective - Vital Signs/Intake and Output Vital Signs (last 24 hours): Temp Pulse Resp BP Pulse Ox 98.2 F 71 18 116/84 99 04/16/18 06:00 04/16/18 09:03 04/16/18 06:00 04/16/18 09:03 04/16/18 06:00 Intake and Output: 04/16/18 04/16/18 06:59 18:59 Intake Total 420 Output Total 625 Balance -205 - Medications Medications: Current Medications Acetaminophen (Tylenol 650mg/20.3ml Solution Ud) 650 mg GT Q4 PRN PRN Reason: Pain, Mild (1-3) Last Admin: 04/16/18 09:04 Dose: 650 mg Amino Acid Protein (Prostat 15 G Packet) 30 gm GT BID [facility] Last Admin: 04/16/18 09:06 Dose: Not Given Amlodipine Besylate (Norvasc) 10 mg GT DAILY [facility] Last Admin: 04/16/18 09:02 Dose: 10 mg Aspirin (Aspirin Chewable) 81 mg GT DAILY [facility] Last Admin: 04/16/18 09:02 Dose: 81 mg Baclofen (Lioresal) 5 mg NG BID [facility] Last Admin: 04/16/18 09:02 Dose: 5 mg Gabapentin (Neurontin) 100 mg GT HS [facility]; Protocol Last Admin: 04/15/18 22:59 Dose: Not Given Cefepime HCl (Maxipime 1gm) 1 gm in 100 mls @ 100 mls/hr IVPB Q12 [facility]; Protocol Last Admin: 04/16/18 09:06 Dose: 100 mls/hr Latanoprost (Xalatan Opht) 0 ml OU HS [facility] Last Admin: 04/15/18 22:59 Dose: 2.5 ml Magnesium Hydroxide (Milk Of Magnesia) 30 ml GT HS PRN PRN Reason: Constipation Metoprolol Tartrate (Lopressor) 50 mg GT DAILY [facility] Last Admin: 04/16/18 09:03 Dose: 50 mg Multivitamins/Vitamin C (Theravite Oral Soln) 5 ml GT DAILY [facility] Last Admin: 04/16/18 09:04 Dose: Not Given Mupirocin (Bactroban Ointment) 0 gm TOP DAILY [facility] Last Admin: 04/16/18 09:06 Dose: 1 applic Non-Formulary Medication (Celecoxib [Celebrex]) 200 mg GT DAILY [facility] Last Admin: 04/16/18 09:06 Dose: Not Given Non-Formulary Medication (Melatonin [Melatonin]) 5 mg GT HS [facility] Last Admin: 04/15/18 22:59 Dose: Not Given Non-Formulary Medication (Senna) 10 ml GT DAILY [facility] Last Admin: 04/16/18 09:04 Dose: Not Given Non-Formulary Medication (Vit C/Ascorbate Calcium,Sodium [Vitamin C 500 Mg/15 Ml Liquid]) 500 mg GT DAILY [facility] Last Admin: 04/16/18 09:05 Dose: Not Given Oxybutynin Chloride (Ditropan Tab) 10 mg GT DAILY [facility] Last Admin: 04/16/18 09:02 Dose: 10 mg Pantoprazole Sodium (Protonix Ec Tab) 20 mg PO ACBD [facility] Last Admin: 04/16/18 09:04 Dose: 20 mg Petrolatum (Desitin Maximum Strength Topical 40% Oint) 0 gm TOP Q8 [facility] Last Admin: 04/16/18 13:38 Dose: Not Given - Labs Labs: 04/14/18 13:00 04/14/18 14:00 - Constitutional Appears: Non-toxic, No Acute Distress, Chronically Ill - Head Exam Head Exam: ATRAUMATIC, NORMOCEPHALIC - Eye Exam Additional comments: legally blind. - ENT Exam ENT Exam: Mucous Membranes Moist, Normal External Ear Exam, TM's Normal Bilaterally - Neck Exam Neck Exam: Full ROM, Normal Inspection - Respiratory Exam Respiratory Exam: Clear to Ausculation Bilateral, NORMAL BREATHING PATTERN. absent: Rales, Rhonchi, Wheezes - Cardiovascular Exam Cardiovascular Exam: REGULAR RHYTHM, RRR, +S1, +S2 - GI/Abdominal Exam GI & Abdominal Exam: Soft, Normal Bowel Sounds. absent: Distended, Tenderness Additional comments: PEG in place. Suprapubic catheter in place. - Extremities Exam Extremities Exam: Normal Inspection. absent: Joint Swelling, Pedal Edema - Neurological Exam Neurological Exam: Alert, Awake, CN II-XII Intact, Oriented x3 - Psychiatric Exam Psychiatric exam: Normal Affect, Normal Mood - Skin Skin Exam: Intact, Normal Color Assessment and Plan - Assessment and Plan (Free Text) Assessment: 67 yo AA male brought in to [facility] for dysfunction of the suprapubic catheter. The quality of the patient's urine and urinalysis was highly suggestive for UTI. Awaiting urine cultures to finalize antibiotic regimen. Urine cultures showing gram negative rods... awaiting identification and sensitivity. Possible discharge in 24 hours. Maintain Cefepime for antibiotic coverage in the meantime. Thank you for allowing me to participate in the care of the patient, we will follow with you.
[2018-04-16] MEDS: MELATONIN 5 MG GT SCH (21:34)
[2018-04-16] MEDS: Latanoprost 2.5 ml Opht Soln OU SCH (23:38)
[2018-04-17] MEDS: Zinc Oxide Topical 40% Oint (Desitin) TOP SCH ×3 (05:16→22:33)
--- NOTE | 2018-04-17 07:29 | PN ---
DATE: 04/16/2018 SUBJECTIVE: The patient is 67 years old male. The patient was seen and examined at the bedside, looking comfortable. No fever. No chills. No nausea, vomiting or diarrhea. No hematuria, no hematochezia. No swelling of the legs. No headache. No dizziness. Just feeling fatigued and tired. PHYSICAL EXAMINATION: VITAL SIGNS: Temperature 98.2, pulse 71, respiratory rate 18, blood pressure 115/84 and pulse oximetry 99. HEENT: Head: Normocephalic, atraumatic. Eyes: PERRLA. Extraocular muscles intact. Conjunctivae are clear. Nose patent. NECK: Supple. No carotid bruits or thyromegaly. CHEST: Bilaterally symmetrical. HEART: S1 and S2 positive. LUNGS: Clear to auscultation. ABDOMEN: Soft. Bowel sounds present. No organomegaly. EXTREMITIES: No edema. No cyanosis. NEUROLOGIC: Patient is awake and alert. Moving all 4 extremities. No focal deficits. MEDICATIONS: Tylenol, amino acid, amlodipine, aspirin, baclofen, gabapentin, Maxipime, milk of magnesia. LABORATORY DATA: White blood cells 7.4, hemoglobin 15.3, hematocrit 48.4 and platelets 207,000. Sodium is 140, potassium 4.0, BUN 14, creatinine 0.7, glucose 122. ASSESSMENT AND PLAN: Mr. Beny Armando is a 67-year-old male with hyperglycemia and history of prostrate cancer and having suprapubic catheter, that catheter was dysfunctioning and thus the patient was brought to the [facility] Emergency Room. Has urinary tract infection. Waiting for urine culture to finalize the antibiotic regimen. Urine culture showing Gram-negative rods. Waiting for identification and sensitivity, possibly maintain Maxipime antibiotics covering in the meantime. Gastrointestinal and deep venous thrombosis prophylaxis. Repeat labs. Seen by Dr. Pichardo, Infectious Disease. We will follow up. Azul Tierney MD
[2018-04-17] MEDS: Pantoprazole 20 mg EC Tab PO SCH ×2 (09:07→17:17)
[2018-04-17] MEDS: Prostat 15 g packet GT SCH ×2 (09:09→17:10)
[2018-04-17] MEDS: SENNA GT SCH (09:09)
[2018-04-17] MEDS: Acetaminophen 650mg/20.3ml solution UD GT PRN ×2 (09:09→17:17)
[2018-04-17] MEDS: [UNRECOGNIZED DRUG - OTHER] GT SCH (09:11)
[2018-04-17] MEDS: Cefepime 1gm in NS 100ml 1 GM/100 ML BAG IVPB SCH ×2 (09:11→22:33)
[2018-04-17] MEDS: ASCORBIC ACID GT SCH (09:11)
[2018-04-17] MEDS: Non Formulary Medication (Celecoxib [Celebrex] 200 MG) GT SCH (09:13)
[2018-04-17] MEDS: Mupirocin 2% Ointment 15 GM TUBE TOP SCH (09:13)
[2018-04-17] MEDS: Multivitamin Oral Soln GT SCH (11:36)
--- NOTE | 2018-04-17 14:23 | CP.PCM.PN ---
Subjective - Date & Time of Evaluation Date of Evaluation: 04/17/18 Time of Evaluation: 13:30 - Subjective Subjective: Infectious Disease Follow Up: April 17, 2018 67 yo AA male with dysfunction of the suprapubic catheter for at least 2 days. The patient has an extensive medical history that includes HTN, Asthma, COPD, hi story of head and neck cancer, CVA, legal blindness, and hiatal hernia. Urinalysis suggestive of a UTI. Cultures of urine pending... showing gram negative rods. Currently on Cefepime for antibiotic coverage. Clinically the patient appears to be at baseline after suprapubic catheter exchange by Urology. The repeat urine culture is showing enterococcus and providencia. The first urine culture is still not identified. Objective - Vital Signs/Intake and Output Vital Signs (last 24 hours): Temp Pulse Resp BP Pulse Ox 97.7 F 76 20 132/79 100 04/17/18 07:00 04/17/18 09:12 04/17/18 07:00 04/17/18 09:12 04/17/18 07:00 Intake and Output: 04/17/18 04/17/18 06:59 18:59 Intake Total 220 Output Total 600 Balance -380 - Medications Medications: Current Medications Acetaminophen (Tylenol 650mg/20.3ml Solution Ud) 650 mg GT Q4 PRN PRN Reason: Pain, Mild (1-3) Last Admin: 04/17/18 09:09 Dose: 650 mg Amino Acid Protein (Prostat 15 G Packet) 30 gm GT BID [facility] Last Admin: 04/17/18 09:09 Dose: Not Given Amlodipine Besylate (Norvasc) 10 mg GT DAILY [facility] Last Admin: 04/17/18 09:08 Dose: 10 mg Aspirin (Aspirin Chewable) 81 mg GT DAILY [facility] Last Admin: 04/17/18 09:07 Dose: 81 mg Baclofen (Lioresal) 5 mg NG BID [facility] Last Admin: 04/17/18 09:12 Dose: 5 mg Gabapentin (Neurontin) 100 mg GT HS [facility]; Protocol Last Admin: 04/16/18 21:32 Dose: 100 mg Cefepime HCl (Maxipime 1gm) 1 gm in 100 mls @ 100 mls/hr IVPB Q12 [facility]; Protocol Last Admin: 04/17/18 09:11 Dose: 100 mls/hr Latanoprost (Xalatan Opht) 0 ml OU HS [facility] Last Admin: 04/16/18 23:38 Dose: 2.5 ml Magnesium Hydroxide (Milk Of Magnesia) 30 ml GT HS PRN PRN Reason: Constipation Last Admin: 04/16/18 21:32 Dose: 30 ml Metoprolol Tartrate (Lopressor) 50 mg GT DAILY [facility] Last Admin: 04/17/18 09:12 Dose: 50 mg Multivitamins/Vitamin C (Theravite Oral Soln) 5 ml GT DAILY [facility] Last Admin: 04/17/18 11:36 Dose: Not Given Mupirocin (Bactroban Ointment) 0 gm TOP DAILY [facility] Last Admin: 04/17/18 09:13 Dose: 1 applic Non-Formulary Medication (Celecoxib [Celebrex]) 200 mg GT DAILY [facility] Last Admin: 04/17/18 09:13 Dose: Not Given Non-Formulary Medication (Melatonin [Melatonin]) 5 mg GT HS [facility] Last Admin: 04/16/18 21:34 Dose: Not Given Non-Formulary Medication (Senna) 10 ml GT DAILY [facility] Last Admin: 04/17/18 09:09 Dose: Not Given Non-Formulary Medication (Vit C/Ascorbate Calcium,Sodium [Vitamin C 500 Mg/15 Ml Liquid]) 500 mg GT DAILY [facility] Last Admin: 04/17/18 09:11 Dose: Not Given Oxybutynin Chloride (Ditropan Tab) 10 mg GT DAILY [facility] Last Admin: 04/17/18 09:06 Dose: 10 mg Pantoprazole Sodium (Protonix Ec Tab) 20 mg PO ACBD [facility] Last Admin: 04/17/18 09:07 Dose: 20 mg Petrolatum (Desitin Maximum Strength Topical 40% Oint) 0 gm TOP Q8 [facility] Last Admin: 04/17/18 13:37 Dose: Not Given - Labs Labs: 04/14/18 13:00 04/14/18 14:00 - Constitutional Appears: Non-toxic, No Acute Distress, Chronically Ill - Head Exam Head Exam: ATRAUMATIC, NORMOCEPHALIC - Eye Exam Additional comments: legally blind. - ENT Exam ENT Exam: Mucous Membranes Moist, Normal External Ear Exam, TM's Normal Bilaterally - Neck Exam Neck Exam: Full ROM, Normal Inspection - Respiratory Exam Respiratory Exam: Clear to Ausculation Bilateral, NORMAL BREATHING PATTERN. absent: Rales, Rhonchi, Wheezes - Cardiovascular Exam Cardiovascular Exam: REGULAR RHYTHM, RRR, +S1, +S2 - GI/Abdominal Exam GI & Abdominal Exam: Soft, Normal Bowel Sounds. absent: Distended, Tenderness Additional comments: PEG in place. Suprapubic catheter in place. - Extremities Exam Extremities Exam: Normal Inspection. absent: Joint Swelling, Pedal Edema - Neurological Exam Neurological Exam: Alert, Awake, CN II-XII Intact, Oriented x3 - Psychiatric Exam Psychiatric exam: Normal Affect, Normal Mood - Skin Skin Exam: Intact, Normal Color Assessment and Plan - Assessment and Plan (Free Text) Assessment: 67 yo AA male brought in to [facility] for dysfunction of the suprapubic catheter. The quality of the patient's urine and urinalysis was highly suggestive for UTI. Awaiting urine cultures to finalize antibiotic regimen. Urine cultures showing gram negative rods... awaiting identification and sensitivity. Possible discharge in 24 hours. Noted that repeat urine culture showing Providencia and Enterococcus First urine culture is still not fully identified. Maintain Cefepime for antibiotic coverage in the meantime. Give no more than 5 days of Cefepime if cultures still not identified. Thank you for allowing me to participate in the care of the patient, we will follow with you.
--- NOTE | 2018-04-17 17:47 | HP ---
DATE: 04/15/2018 The patient was seen and examined at the bedside on 04/15/2018. CHIEF COMPLAINT: Fatigue and tiredness. HISTORY OF PRESENT ILLNESS: The patient is a 67-year-old male with past medical history of hypertension, asthma, COPD, cancer of throat, has suprapubic catheter and it is leaking and it is not working very well for 2 days, but no fever, no chills, no headache, no dizziness, no chest pain, no palpitation. The patient is a very poor historian. He is blind bilaterally. No headache. No dizziness. PAST MEDICAL HISTORY: Asthma, COPD, emphysema, history of CVA, blind, retinal detachment bilaterally, history of throat cancer, has suprapubic catheter and diabetes mellitus. FAMILY HISTORY: Father and mother, noncontributory. HABITS: No smoking. No drug. No ethanol. HOME MEDICATIONS: Reviewed by me. ALLERGIES: THE PATIENT IS NOT ALLERGIC WITH ANY MEDICATION. REVIEW OF SYSTEMS: The patient was seen and examined at the bedside. Feeling fatigued, but no fever. The patient cannot see, he is blind bilaterally. No hearing changes. No shortness of breath. No coughing. No sputum. No chest pain. No abdominal pain. No nausea, vomiting or diarrhea. No arthralgia. No pruritus. No headache. No dizziness. No adenopathy. No depression or suicidal ideation. PHYSICAL EXAMINATION: VITAL SIGNS: Temperature 97.3, pulse 74, respiratory rate 18, blood pressure 105/70, pulse oximetry 100%. HEENT: Head: Normocephalic, atraumatic. Eyes: Closed. Nose: Patent. Mucous membranes moist. NECK: Supple. No carotid bruit. No JVD or thyromegaly. CHEST: Bilaterally symmetrical. HEART: S1 and S2 positive. LUNGS: Clear to auscultation. ABDOMEN: Soft, has PEG tube and suprapubic catheter. EXTREMITIES: No edema. No cyanosis. NEUROLOGIC: The patient is awake and alert. Follows simple commands. LABORATORY DATA: White blood cells 7.4, hemoglobin 16.3, hematocrit 48.4, platelets 207,000. Sodium 140, potassium 4.0, BUN 14, creatinine 0.7, glucose 122. ASSESSMENT AND PLAN: The patient is a 67-year-old -[place] male, has dysfunction of a suprapubic catheter, urinary tract infection. Start with antibiotics. Waiting for urine culture and sensitivity for antibiotic regimen. After getting culture and sensitivity, we will plan about antibiotics. The patient has a history of multiple medical problems, hypertension, asthma, chronic obstructive pulmonary disease, history of head and neck cancer, cerebrovascular accident, legally blind, bilateral hernia, history of head and neck debulking surgery, PEG tube placement, suprapubic catheter placement. Now, we called consulting doctor, Dr. Romain Byrd, for changing of suprapubic catheter. Continue feeding with PEG tube and antibiotics. Gastrointestinal and deep venous thrombosis prophylaxis. Repeat labs. We will follow up. Azul Tierney MD
[2018-04-17] MEDS: MELATONIN 5 MG GT SCH (22:33)
[2018-04-17] MEDS: Latanoprost 2.5 ml Opht Soln OU SCH (22:34)
--- NOTE | 2018-04-17 23:11 | PN ---
DATE: 04/17/2018 SUBJECTIVE: Patient is 67-year-old male. Patient was seen and examined at the bedside on 04/17/2018. Looking comfortable. Patient is legally blind. He is not good historian. No fever, no chills. No headache, no dizziness. No hematuria, no hematochezia. No coughing, no shortness of breath. PHYSICAL EXAMINATION: VITAL SIGNS: Temperature 97.7, pulse 76, respiratory rate 20, blood pressure 113/79, pulse oximetry 100. HEENT: Head is normocephalic, atraumatic. Eyes closed. Nose patent. NECK: Supple. No carotid bruits. No JVD or thyromegaly. CHEST: Bilaterally symmetrical. HEART: S1 and S2 positive. LUNGS: Clear to auscultation. ABDOMEN: Soft. Bowel sounds present. No organomegaly. EXTREMITIES: No edema. No cyanosis. NEUROLOGIC: Patient is awake, alert. Follows simple commands. MEDICATIONS: Tylenol, Prostate, Norvasc, aspirin, baclofen, Neurontin, cefepime, eye drops, magnesium, metoprolol. LABORATORY DATA: White blood cells 7.4, hemoglobin 15.3, hematocrit 48.4 and platelets 207. Sodium 140, potassium 4, BUN 14, creatinine 0.7, glucose 122. ASSESSMENT AND PLAN: Mr. Beny Armando, 67-year-old male with hyperglycemia, came for dysfunction of the suprapubic catheter, urinary tract infection, waiting for the culture to finalize the antibiotic regimen. Urine culture showing gram-negative rods, waiting for identification and sensitivity. Looks like urine culture has Providencia and Enterococcus. First urine is still not fully identified. Meanwhile, continue cefepime. Patient is blind. History of laryngeal cancer, chronic obstructive pulmonary disease, bedridden, suprapubic catheter getting changed by Dr. Moshe Byrd once a month, history of cerebrovascular accident, bilateral hernia, history of head and neck debulking surgery, PEG tube placement, getting feeding with PEG tube. Waiting for sensitivity. Meanwhile, continue present treatment. Repeat labs. We will follow up. Azul Tierney MD [facility] # [id number]
[2018-04-18 07:54] LABS: MEAN CELL VOLUME 92.8 fl (80.0-105.0); MEAN CORPUSCULAR HGB CONC 33.4 g/dl (31.0-37.0); MEAN PLATELET VOLUME 9.5 fl (7.0-11.0); RBC 4.42 10^6/uL (3.5-6.1); RED CELL DISTRIBUTION WIDTH 14.2 % (11.5-14.5); WHITE BLOOD COUNT 7.3 10^3/uL (4.5-11.0)
[2018-04-18 07:56] LABS: HEMOGLOBIN 13.7 g/dL (14.0-18.0)
[2018-04-18] MEDS: Pantoprazole 20 mg EC Tab PO SCH (08:05)
[2018-04-18 08:16] LABS: BLOOD UREA NITROGEN 18 mg/dL (7-21); CALCIUM 8.9 mg/dL (8.4-10.5); GFR NON-AFRICAN AMERICAN > 60
[2018-04-18] MEDS: Non Formulary Medication (Celecoxib [Celebrex] 200 MG) GT SCH (09:39)
[2018-04-18] MEDS: Cefepime 1gm in NS 100ml 1 GM/100 ML BAG IVPB SCH (09:40)
[2018-04-18] MEDS: Prostat 15 g packet GT SCH (09:41)
[2018-04-18] MEDS ORDERED: Ascorbic Acid 500 mg/5 ml Liq(50 ml) GT SCH ×2 (09:45)
[2018-04-18] MEDS ORDERED: SENNA 8.8 MG/5 ML GT SCH (09:47)
[2018-04-18] MEDS ORDERED: ASCORBIC ACID GT SCH (10:00)
[2018-04-18] MEDS ORDERED: [UNRECOGNIZED DRUG - OTHER] GT SCH (10:00)
[2018-04-18] MEDS ORDERED: SENNA GT SCH (10:00)
[2018-04-18 10:02] VITALS: RESP 18
[2018-04-18] MEDS: Multivitamin Oral Soln GT SCH (11:08)
[2018-04-18] MEDS: Mupirocin 2% Ointment 15 GM TUBE TOP SCH (11:10)
[2018-04-18 16:03] VITALS: BP 110/75; PULSE 73; TEMP 97.5; O2SAT 100
[2018-04-18] MEDS: Zinc Oxide Topical 40% Oint (Desitin) TOP SCH (16:08)
--- NOTE | 2018-04-18 16:55 | CP.PCM.PN ---
Subjective - Date & Time of Evaluation Date of Evaluation: 04/18/18 Time of Evaluation: 15:00 - Subjective Subjective: Infectious Disease Follow Up: April 18, 2018 67 yo AA male with dysfunction of the suprapubic catheter for at least 2 days. The patient has an extensive medical history that includes HTN, Asthma, COPD, hi story of head and neck cancer, CVA, legal blindness, and hiatal hernia. Urinalysis suggestive of a UTI. Cultures of urine pending... showing gram negative rods. Currently on Cefepime for antibiotic coverage. Clinically the patient appears to be at baseline after suprapubic catheter exchange by Urology. The repeat urine culture is showing Enterococcus and Providencia. The first urine culture is showing Providencia as well. Objective - Vital Signs/Intake and Output Vital Signs (last 24 hours): Temp Pulse Resp BP Pulse Ox 97.5 F L 73 18 110/75 100 04/18/18 14:00 04/18/18 14:00 04/18/18 14:00 04/18/18 14:00 04/18/18 14:00 Intake and Output: 04/18/18 04/18/18 06:59 18:59 Output Total 1000 Balance -1000 - Medications Medications: Current Medications Acetaminophen (Tylenol 650mg/20.3ml Solution Ud) 650 mg GT Q4 PRN PRN Reason: Pain, Mild (1-3) Last Admin: 04/17/18 17:17 Dose: 650 mg Amino Acid Protein (Prostat 15 G Packet) 30 gm GT BID [facility] Last Admin: 04/18/18 09:41 Dose: Not Given Amlodipine Besylate (Norvasc) 10 mg GT DAILY [facility] Last Admin: 04/18/18 09:40 Dose: 10 mg Aspirin (Aspirin Chewable) 81 mg GT DAILY [facility] Last Admin: 04/18/18 09:39 Dose: 81 mg Baclofen (Lioresal) 5 mg NG BID [facility] Last Admin: 04/18/18 09:39 Dose: 5 mg Gabapentin (Neurontin) 100 mg GT HS [facility]; Protocol Last Admin: 04/17/18 22:34 Dose: Not Given Cefepime HCl (Maxipime 1gm) 1 gm in 100 mls @ 100 mls/hr IVPB Q12 [facility]; Protocol Last Admin: 04/18/18 09:40 Dose: 100 mls/hr Latanoprost (Xalatan Opht) 0 ml OU HS [facility] Last Admin: 04/17/18 22:34 Dose: 2.5 ml Magnesium Hydroxide (Milk Of Magnesia) 30 ml GT HS PRN PRN Reason: Constipation Last Admin: 04/16/18 21:32 Dose: 30 ml Metoprolol Tartrate (Lopressor) 50 mg GT DAILY [facility] Last Admin: 04/18/18 09:38 Dose: 50 mg Multivitamins/Vitamin C (Theravite Oral Soln) 5 ml GT DAILY [facility] Last Admin: 04/18/18 11:08 Dose: 5 ml Mupirocin (Bactroban Ointment) 0 gm TOP DAILY [facility] Last Admin: 04/18/18 11:10 Dose: 1 applic Non-Formulary Medication (Celecoxib [Celebrex]) 200 mg GT DAILY [facility] Last Admin: 04/18/18 09:39 Dose: Not Given Non-Formulary Medication (Melatonin [Melatonin]) 5 mg GT HS [facility] Last Admin: 04/17/18 22:33 Dose: Not Given Non-Formulary Medication (Senna) 10 ml GT DAILY [facility] Last Admin: 04/18/18 11:09 Dose: Not Given Non-Formulary Medication (Vit C/Ascorbate Calcium,Sodium [Vitamin C 500 Mg/15 Ml Liquid]) 500 mg GT DAILY [facility] Last Admin: 04/18/18 11:08 Dose: Not Given Oxybutynin Chloride (Ditropan Tab) 10 mg GT DAILY [facility] Last Admin: 04/18/18 09:39 Dose: 10 mg Pantoprazole Sodium (Protonix Ec Tab) 20 mg PO ACBD [facility] Last Admin: 04/18/18 08:05 Dose: 20 mg Petrolatum (Desitin Maximum Strength Topical 40% Oint) 0 gm TOP Q8 [facility] Last Admin: 04/18/18 16:08 Dose: Not Given - Labs Labs: 04/18/18 07:20 04/18/18 07:20 - Constitutional Appears: Non-toxic, No Acute Distress, Chronically Ill - Head Exam Head Exam: ATRAUMATIC, NORMOCEPHALIC - Eye Exam Additional comments: legally blind - ENT Exam ENT Exam: Mucous Membranes Moist, Normal External Ear Exam, TM's Normal Bilaterally - Neck Exam Neck Exam: Full ROM, Tenderness - Respiratory Exam Respiratory Exam: Clear to Ausculation Bilateral, NORMAL BREATHING PATTERN. absent: Rales, Rhonchi, Wheezes - Cardiovascular Exam Cardiovascular Exam: REGULAR RHYTHM, RRR, +S1, +S2 - GI/Abdominal Exam GI & Abdominal Exam: Soft, Normal Bowel Sounds. absent: Distended, Tenderness Additional comments: PEG in place. Suprapubic catheter in place. - Extremities Exam Extremities Exam: Full ROM, Normal Inspection - Neurological Exam Neurological Exam: Alert, Awake, CN II-XII Intact, Oriented x3 - Psychiatric Exam Psychiatric exam: Normal Affect, Normal Mood - Skin Skin Exam: Intact, Normal Color Assessment and Plan - Assessment and Plan (Free Text) Assessment: 67 yo AA male brought in to [facility] for dysfunction of the suprapubic catheter. The quality of the patient's urine and urinalysis was highly suggestive for UTI. Awaiting urine cultures to finalize antibiotic regimen. Urine cultures showing gram negative rods... awaiting identification and sensitivity. Possible discharge in 24 hours. Noted that repeat urine culture showing Providencia and Enterococcus First urine culture is now showing Providencia. Can consider 5-7 days more of Augmentin 875mg BID PO. Thank you for allowing me to participate in the care of the patient, we will follow with you.
--- NOTE | 2018-04-19 05:15 | OP ---
PROCEDURE DATE: 04/15/2018 PREOPERATIVE DIAGNOSES: Prostate cancer; currently no evidence of disease, voiding dysfunction, urinary retention, and a faulty suprapubic catheter. POSTOPERATIVE DIAGNOSES: Prostate cancer; currently no evidence of disease, voiding dysfunction, urinary retention and a faulty suprapubic catheter. PROCEDURE: At the bedside, we removed an old catheter, we inserted a new catheter and we irrigated copiously. The rest of the procedure is insertion of a suprapubic catheter. SURGEON: Moshe Byrd MD ESTIMATED BLOOD LOSS: No blood loss. INDICATIONS: See history and physical and consultation and further details. Extremely pleasant gentleman. He is a 67-year-old gentleman who has a history of prostate cancer, currently STEPHANIE. Back in 08/2008, we did a radical retropubic prostatectomy open at that time. Postop no complications. No evidence of recurrence throughout the years. But he did develop urinary retention. He has multiple medical issues being discussed, management issues. He is blind. I have been discussing the option with him, attempted repair and that he is saying he has been living with a suprapubic catheter that we change periodically. We change it on a regular basis through the office. He has now come to the emergency room as the suprapubic catheter was not working well. See our plans below and Urology would have to change the catheter. PROCEDURE: After discussing options with the patient, I explained to the patient that he will be best served here at the bedside just changing the catheter. He allowed me to change it. We had discussed options change it often without major difficulty. He is now here for the above procedure of changing the catheter. Under sterile technique, I removed the catheter. I inserted a new catheter. I irrigated copiously in the best possible way to try to get out as much debris as possible given the fact that now he had 2 catheters in a week. My actual recommendation is going to be to bring him to the OR with anesthesia so that we could trial a punch and try to see if we can get a larger tap and may be get an up to 22-Telugu and irrigate even more and more sand and debris in it. He is not enthusiastic after too much was done at the bedside. emergency basis. So the final diagnosis is urinary retention, bladder debris, and nonfunctioning catheter. Urology plans as follows. From urology standpoint, we have created discharge. The major part of the discharge will be up to medical team, Dr. Tierney. From urology standpoint, we will arrange a cystoscopy in the next week or two or could be done as an outpatient. Moshe Byrd MD
== END 2018-04-18 16:56 | DRG 699 ==
LOC: ED 11:59 → ERH 16:33 → 5RSO 21:12 → OBSVTOIN 04-17 02:46
PROVIDERS: ADMIT Internal Medicine; ATTEND Internal Medicine
PROC: 0T2BX0Z Change Drainage Device in Bladder, External Approach (ICD-10-PCS; principal; 2018-04-18)
DX: T83.090A Other mechanical complication of cystostomy catheter, initial encounter (principal); N39.0 Urinary tract infection, site not specified; T83.030A Leakage of cystostomy catheter, initial encounter; L89.312 Pressure ulcer of right buttock, stage 2; J44.9 Chronic obstructive pulmonary disease, unspecified; I10 Essential (primary) hypertension; N31.9 Neuromuscular dysfunction of bladder, unspecified; E11.65 Type 2 diabetes mellitus with hyperglycemia; B95.2 Enterococcus as the cause of diseases classified elsewhere; H54.8 Legal blindness, as defined in USA; Z85.46 Personal history of malignant neoplasm of prostate; Z85.21 Personal history of malignant neoplasm of larynx; Z86.73 Personal history of transient ischemic attack (TIA), and cerebral infarction without residual deficits; Z74.01 Bed confinement status; Z93.1 Gastrostomy status

== ENCOUNTER 2018-10-14 12:33 | Emergency (ER) | payer MEDICAID, MEDICARE ==
[2018-10-14 12:34] VITALS: BMI 19.1
[2018-10-14 12:49] VITALS: RESP 18; TEMP 98.2
--- NOTE | 2018-10-14 12:51 | ED PDOC ---
Arrival/HPI - General Chief Complaint: GI Problem Time Seen by Provider: 10/14/18 12:35 Historian: Patient - History of Present Illness Narrative History of Present Illness (Text): 10/14/18 12:48 A 67 year old male, whose past medical history includes htn/asthma/copd/head neck throat cancer, presents to the emergency department for further evaluation of gastrostomy tube dislodgment. The patient notes that a nurse was cleaning his tube when it suddenly dislodged. He presents to the emergency department for a replacement of the tube. The patient is in in acute distress. He denies fevers, chills, headache, dizziness, chest pain, shortness of breath, dyspnea on exertion, cough, abdominal pain, nausea, vomiting, diarrhea, back pain, neck pain, urinary/bowel changes, or any other physical complaint. Time/Duration: Other (5 AM) Symptom Onset: Sudden Symptom Course: Unchanged Activities at Onset: Rest, Light Context: Home Past Medical History - Provider Review Nursing Documentation Reviewed: Yes - Infectious Disease Hx of Infectious Diseases: None - Tetanus Immunization Tetanus Immunization: Unknown - Cardiac Hx Cardiac Disorders: Yes Hx NC: No Hx Hypertension: Yes - Pulmonary Hx Respiratory Disorders: Yes Hx Asthma: Yes Hx Chronic Obstructive Pulmonary Disease (COPD): Yes Hx Emphysema: Yes Hx Respiratory Aspiration: Yes - Neurological Hx Neurological Disorder: Yes HX Cerebrovascular Accident: Yes (left arm contracted) Hx Paralysis: Yes Hx Transient Ischemic Attacks (TIA): Yes - HEENT Hx HEENT Disorder: Yes Hx Blind: Yes Hx Cataracts: Yes (RETINAL DETACHMENT BILATERAL) Hx Glaucoma: Yes Other/Comment: TRACHEOSTOMY R/T THROAT CA; REVERSED - Renal Hx Renal Disorder: Yes Hx Neurogenic Bladder: Yes Other/Comment: RETENTION, SUPRAPUBIC RODRIGUEZ CATHETER - Endocrine/Metabolic Hx Endocrine Disorders: Yes Hx Diabetes Mellitus Type 2: Yes - Hematological/Oncological Hx Blood Disorders: Yes Hx Anemia: Yes Hx Cancer: Yes (PROSTATE; THROAT AND TONGUE) Hx Chemotherapy: Yes - Integumentary Hx Dermatological Disorder: Yes Hx Cellulitis: Yes - Musculoskeletal/Rheumatological Hx Musculoskeletal Disorders: Yes Hx Falls: Yes Hx Unsteady Gait: Yes (BEDRIDDEN) - Gastrointestinal Hx Gastrointestinal Disorders: Yes Hx Diverticulitis: Yes Hx Hemorrhoids: Yes HX Swallowing Problems: Yes Other/Comment: HIATAL HERNIA, GASTROSTOMY TUBE - Genitourinary/Gynecological Hx Genitourinary Disorders: Yes Hx Hematuria: Yes Hx Incontinence: Yes Hx Prostate Cancer: Yes Hx Prostate Problems: Yes Other/Comment: HX: RETENTION. RODRIGUEZ CATHETER DEPENDENT(SUPRAPUBIC CATH IN PLACE) - Psychiatric Hx Psychophysiologic Disorder: Yes Hx Anxiety: Yes Hx Substance Use: No - Past Surgical History Past Surgical History: Unable to Obtain - Surgical History Other/Comment: HIATAL HERNIA REPAIR; GT PLACEMENT, SUPRA PUBIC CATHETER, TRACH WITH REVERSAL - Anesthesia Hx Anesthesia: Yes Hx Anesthesia Reactions: No Hx Malignant Hyperthermia: No - Suicidal Assessment Feels Threatened In Home Enviroment: No Family/Social History - Physician Review Nursing Documentation Reviewed: Yes Family/Social History: No Known Family HX Smoking Status: Former Smoker Hx Alcohol Use: Yes (Ex) Hx Substance Use: No Hx Substance Use Treatment: No Allergies/Home Meds Allergies/Adverse Reactions: Allergies No Known Allergies Allergy (Verified 10/14/18 12:44) Home Medications: Home Meds Medication Instructions Recorded Confirmed Acetaminophen 650 mg GT Q4 PRN 10/24/15 09/27/18 Amlodipine Besylate [Norvasc] 10 mg GT DAILY 10/24/15 09/27/18 Aspirin [Aspirin Chewable] 81 mg GT DAILY 10/24/15 09/27/18 Latanoprost 0.005% Opht [Xalatan 1 drop OU HS 10/24/15 09/27/18 Opht] Magnesium Hydroxide [Milk Of 30 ml GT HS PRN 10/24/15 09/27/18 Magnesia] Melatonin 5 mg GT HS 10/24/15 09/27/18 Metoprolol Tartrate [Lopressor] 50 mg GT DAILY 10/24/15 09/27/18 Multivitamin [Multi-Delyn] 5 ml GT DAILY 10/24/15 09/27/18 Senna [Senokot Syrup] 10 ml GT DAILY 07/30/16 09/27/18 Baclofen [Lioresal] 5 mg GT BID 12/13/17 09/27/18 Celecoxib [Celebrex] 200 mg GT DAILY 12/13/17 09/27/18 Gabapentin [Neurontin] 100 mg GT HS 12/13/17 09/27/18 Mupirocin 2% Cream [Bactroban 1 applic TOP DAILY 04/14/18 09/27/18 Cream] Omeprazole 20 mg PO BID 04/14/18 09/27/18 Zinc Oxide 1 applic TOP Q8 04/14/18 09/27/18 Ergocalciferol (Vitamin D2) 50,000 unit PO QWK 10/11/18 [Vitamin D2] Review of Systems - Physician Review All systems were reviewed & negative as marked: Yes - Review of Systems Constitutional: absent: Fevers Gastrointestinal: absent: Abdominal Pain Physical Exam - Physical Exam Narrative Physical Exam (Text): Constitutional: No acute distress. Head: Normocephalic. Atraumatic. Eyes: PERRL. ENT: Moist mucous membranes. Neck: Supple. Cardiovascular: Regular rate. Chest: No tenderness. Respiratory: Clear to auscultation bilaterally. GI: Soft. Nontender. Nondistended. Gastrostomy in abdomen wall. No discharge. No erythema. Back: No CVA tenderness. Musculoskeletal: No tenderness or swelling of extremities. Skin: No rash. Neurologic: Alert, no focal deficit. Vital Signs Reviewed: Yes Vital Signs Temp Pulse Resp BP Pulse Ox 10/14/18 12:34 98.2 F 105 H 18 126/78 100 Temperature: Afebrile Blood Pressure: Normal Pulse: Tachycardic Respiratory Rate: Normal Appearance: Positive for: Well-Appearing, Non-Toxic, Comfortable Pain Distress: None Mental Status: Positive for: Alert and Oriented X 3 Medical Decision Making ED Course and Treatment: 10/14/18 12:51 Impression: A 67 year old male presents to the emergency department for replacement of his gastrostomy tube after dislodgment this morning. Plan: -- Abdomen X- Ray -- Reassess and disposition Prior Visits: Notes and results from previous visits were reviewed. Progress Notes: 10/14/18 13:09:Tube replaced with balloon replacement gastrostomy. 20 Korean with 20 cc balloon. Without complication, patient tolerated procedure. Confirmed by x- ray. Patient sent back to facility. - Scribe Statement The provider has reviewed the documentation as recorded by the Kelle Teran Provider Scribe Attestation: All medical record entries made by the Scribe were at my direction and personally dictated by me. I have reviewed the chart and agree that the record accurately reflects my personal performance of the history, physical exam, medical decision making, and the department course for this patient. I have also personally directed, reviewed, and agree with the discharge instructions and disposition. Disposition/Present on Arrival - Present on Arrival Any Indicators Present on Arrival: Yes History of DVT/PE: No History of Uncontrolled Diabetes: No Urinary Catheter: Yes History of Decub. Ulcer: No History Surgical Site Infection Following: None - Disposition Have Diagnosis and Disposition been Completed?: Yes Diagnosis: Encounter for feeding tube placement Disposition: HOME/ ROUTINE Disposition Time: 14:26 Patient Plan: Discharge Condition: GOOD Discharge Instructions (ExitCare): How to Care for Your PEG Tube Forms: [facility] (Mauritanian)
[2018-10-14] MEDS ORDERED: Iohexol 240 (50 ml) ONE (13:59)
--- NOTE | 2018-10-14 14:44 | RAD ---
Date of service: 10/14/2018 HISTORY: confirm peg tube with contrast push COMPARISON: None available. TECHNIQUE: 1 view obtained. FINDINGS: BOWEL: A dilute solution of contrast was injected through the PEG tube by the radiology nurse. Contrast can be seen within the lumen of the stomach. The balloon catheter can be seen in the mid stomach. BONES: Normal. OTHER FINDINGS: None. IMPRESSION: Satisfactory position of PEG tube
[2018-10-14 16:23] VITALS: BP 135/75; PULSE 90; O2SAT 99
== END 2018-10-14 16:23 | disposition home or self-care (01) ==
LOC: ED 12:33
DX: Z46.59 Encounter for fitting and adjustment of other gastrointestinal appliance and device (principal)
CPT/HCPCS: 43762; 74018; 99283; Q9966

== ENCOUNTER 2018-10-20 19:25 | Inpatient (IN) | payer MEDICARE, MEDICAID ==
[2018-10-20 19:31] VITALS: BMI 23.5
--- NOTE | 2018-10-20 20:26 | ED PDOC ---
Arrival/HPI - General Chief Complaint: Seizure Time Seen by Provider: 10/20/18 19:31 Historian: Patient - History of Present Illness Narrative History of Present Illness (Text): 10/20/18 20:26 67 year old male, whose past medical history includes CVA, hypertension, asthma, COPD, and throat cancer, presents to the emergency department from [facility], status post "shaking" for 3 minutes. Patient is brought in for evaluation of suspected seizure. Patient arrives to the ER awake, alert, and using clear speech. Patient denies any history of seizures. Patient informs having some abdominal pain localized to the feeding tube site. Patient denies headache, chest pain, fevers, chills, shortness of breath, dyspnea on exertion, cough, diaphoresis, or any other complaint. Time/Duration: Prior to Arrival Symptom Onset: Sudden Symptom Course: Resolved Activities at Onset: Light Context: Home Past Medical History - Provider Review Nursing Documentation Reviewed: Yes - Infectious Disease Hx of Infectious Diseases: None - Tetanus Immunization Tetanus Immunization: Unknown - Cardiac Hx Cardiac Disorders: Yes Hx [place]: No Hx Hypertension: Yes - Pulmonary Hx Respiratory Disorders: Yes Hx Asthma: Yes Hx Chronic Obstructive Pulmonary Disease (COPD): Yes Hx Emphysema: Yes Hx Respiratory Aspiration: Yes - Neurological Hx Neurological Disorder: Yes HX Cerebrovascular Accident: Yes (left arm contracted) Hx Paralysis: Yes Hx Transient Ischemic Attacks (TIA): Yes - HEENT Hx HEENT Disorder: Yes Hx Blind: Yes Hx Cataracts: Yes (RETINAL DETACHMENT BILATERAL) Hx Glaucoma: Yes Other/Comment: TRACHEOSTOMY R/T THROAT CA; REVERSED - Renal Hx Renal Disorder: Yes Hx Neurogenic Bladder: Yes Other/Comment: RETENTION, SUPRAPUBIC RODRIGUEZ CATHETER - Endocrine/Metabolic Hx Endocrine Disorders: Yes Hx Diabetes Mellitus Type 2: Yes (not taking diabetic medication ?. no diagnosis noted) - Hematological/Oncological Hx Blood Disorders: Yes Hx Anemia: Yes Hx Cancer: Yes (PROSTATE; THROAT AND TONGUE) Hx Chemotherapy: Yes - Integumentary Hx Dermatological Disorder: Yes Hx Cellulitis: Yes - Musculoskeletal/Rheumatological Hx Musculoskeletal Disorders: Yes Hx Falls: Yes Hx Unsteady Gait: Yes (BEDRIDDEN) - Gastrointestinal Hx Gastrointestinal Disorders: Yes Hx Diverticulitis: Yes Hx Hemorrhoids: Yes HX Swallowing Problems: Yes Other/Comment: HIATAL HERNIA, GASTROSTOMY TUBE - Genitourinary/Gynecological Hx Genitourinary Disorders: Yes Hx Hematuria: Yes Hx Incontinence: Yes Hx Prostate Cancer: Yes Hx Prostate Problems: Yes Other/Comment: HX: RETENTION. RODRIGUEZ CATHETER DEPENDENT(SUPRAPUBIC CATH IN PLACE) - Psychiatric Hx Psychophysiologic Disorder: Yes Hx Anxiety: Yes Hx Substance Use: No - Past Surgical History Past Surgical History: Unable to Obtain - Surgical History Other/Comment: HIATAL HERNIA REPAIR; GT PLACEMENT, SUPRA PUBIC CATHETER, TRACH WITH REVERSAL - Anesthesia Hx Anesthesia: Yes Hx Anesthesia Reactions: No Hx Malignant Hyperthermia: No - Suicidal Assessment Feels Threatened In Home Enviroment: No Family/Social History - Physician Review Nursing Documentation Reviewed: Yes Family/Social History: No Known Family HX Smoking Status: Former Smoker Hx Alcohol Use: Yes (Ex) Hx Substance Use: No Hx Substance Use Treatment: No Allergies/Home Meds Allergies/Adverse Reactions: Allergies No Known Allergies Allergy (Verified 10/14/18 12:44) Home Medications: Home Meds Medication Instructions Recorded Confirmed Acetaminophen 650 mg GT Q4 PRN 10/24/15 10/18/18 Amlodipine Besylate [Norvasc] 10 mg GT DAILY 10/24/15 10/18/18 Aspirin [Aspirin Chewable] 81 mg GT DAILY 10/24/15 10/18/18 Latanoprost 0.005% Opht [Xalatan 1 drop OU HS 10/24/15 10/18/18 Opht] Magnesium Hydroxide [Milk Of 30 ml GT HS PRN 10/24/15 10/18/18 Magnesia] Melatonin 5 mg GT HS 10/24/15 10/18/18 Metoprolol Tartrate [Lopressor] 50 mg GT DAILY 10/24/15 10/18/18 Multivitamin [Multi-Delyn] 5 ml GT DAILY 10/24/15 10/18/18 Senna [Senokot Syrup] 10 ml GT DAILY 07/30/16 10/18/18 Baclofen [Lioresal] 5 mg GT BID 12/13/17 10/18/18 Celecoxib [Celebrex] 200 mg GT DAILY 12/13/17 10/18/18 Gabapentin [Neurontin] 100 mg GT HS 12/13/17 09/27/18 Mupirocin 2% Cream [Bactroban 1 applic TOP DAILY 04/14/18 10/18/18 Cream] Omeprazole 20 mg PO BID 04/14/18 10/18/18 Zinc Oxide 1 applic TOP Q8 04/14/18 10/18/18 Ergocalciferol (Vitamin D2) 50,000 unit PO QWK 10/11/18 10/18/18 [Vitamin D2] Review of Systems - Physician Review All systems were reviewed & negative as marked: Yes - Review of Systems Constitutional: absent: Fevers, Night Sweats Respiratory: absent: SOB, Cough Cardiovascular: absent: Chest Pain, CHAKRABORTY Gastrointestinal: Abdominal Pain (Surrounding stoma) Neurological: absent: Headache Endocrine: absent: Diaphoresis Physical Exam - Physical Exam Narrative Physical Exam (Text): 10/20/18 20:37 Gen: VS reviewed, alert, well developed, well nourished, nontoxic, mild distress. ENT: normal pharynx. Eye: opacification of both eyes (patient is blind in both). Neck: no JVD, supple, no adenopathy. CV: regular rate, regular rhythm, no rubs, no murmur, no gallops, S1, S2, pulses equal and strong. Pulm: no distress, clear to auscultation, no wheeze, no rhonchi, breath sounds equal, no rales. Abd: mild irritation around stoma Ext: no edema. Skin: good color, no rash, no cyanosis. Psych: responds appropriately to questions, normal affect. Neuro: oriented x 3, Left facial droop, motor intact and sensation intact for the right arm and leg, paralysis left arm and leg. Vital Signs Reviewed: Yes Vital Signs Temp Pulse Resp BP Pulse Ox 10/20/18 20:12 99.4 F 10/20/18 19:30 113 H 15 132/87 95 Blood Pressure: Normal Pulse: Tachycardic Respiratory Rate: Normal Appearance: Positive for: Well-Appearing, Non-Toxic, Comfortable Pain Distress: None Mental Status: Positive for: Alert and Oriented X 3 Medical Decision Making ED Course and Treatment: 10/20/18 20:35 Impression: 67 year old male presents for evaluation of shaking episode. Differential Diagnosis included but are not limited to: possible seizure vs rigors possible infectious etiology will admit Plan: -- VBG -- CT Head -- EKG -- CMP, Mg -- Chest X-ray -- Blood and Urine Cultures -- Urinalysis -- Reassess and disposition Prior Visits: Notes and results from previous visits were reviewed. Progress Notes: 10/20/18 20:53 code sepsis activated, meets criteria with accumulated information, start empiric abx, ivf 10/20/18 23:[address] rushing, no phone call back. will admit to the hospitalist. medical planner aware of admit. 10/21/18 00:[address] rushing, patient to be admitted for sepsis from [facility] 10/21/18 00:[address] palomo, infectious disease, recommends iv dose of vanco for now and meropenem in the AM- empiric regimen vanco/antonia - RAD Interpretation Radiology Orders: 10/20/18 19:43 HEAD W/O CONTRAST [CT] Stat CHEST PORTABLE [RAD] Stat - EKG Interpretation EKG Interpretation (Text): 10/20/18 20:36 Sinus tachcardia @110bpm Normal QRS, Normal axis Nonspecific T wave abnormality Interpreted by ED Physician: Yes Type: 12 lead EKG - Scribe Statement The provider has reviewed the documentation as recorded by the Kelle Gomez Provider Scribe Attestation: All medical record entries made by the Kelle were at my direction and personally dictated by me. I have reviewed the chart and agree that the record accurately reflects my personal performance of the history, physical exam, medical decision making, and the department course for this patient. I have also personally directed, reviewed, and agree with the discharge instructions and disposition. Disposition/Present on Arrival - Present on Arrival Any Indicators Present on Arrival: No History of DVT/PE: No History of Uncontrolled Diabetes: No Urinary Catheter: Yes History of Decub. Ulcer: No History Surgical Site Infection Following: None - Disposition Have Diagnosis and Disposition been Completed?: Yes Diagnosis: UTI (urinary tract infection), Sepsis Disposition: HOSPITALIZED Disposition Time: 20:55 Patient Plan: Admission Patient Problems: Current Active Problems Problem Status Onset UTI (urinary tract infection) Acute Sepsis Acute Condition: GUARDED
[2018-10-20 20:37] LABS: PH,URINE 6.5 (4.7-8.0); URINE BILIRUBIN NEGATIVE (NEGATIVE); URINE BLOOD SMALL (NEGATIVE); URINE GLUCOSE (UA) NEGATIVE (NEGATIVE); URINE LEUKOCYTE ESTERASE MODERATE Leu/uL (NEGATIVE); URINE PROTEIN 100 mg/dL (<30 mg/dL)
[2018-10-20 20:41] LABS: BASO # 0.02 K/mm3 (0.0-2.0); BASO % 0.1 % (0.0-3.0); EOS # 0.1 (0.0-0.7); EOS % 0.3 % (1.5-5.0); LYMPH # 1.1 (1.2-3.4); LYMPH % 6.9 % (22.0-35.0); MEAN CELL VOLUME 91.6 fl (80.0-105.0); MEAN CORPUSCULAR HEMOGLOBIN 30.5 pg (25.0-35.0); MEAN CORPUSCULAR HGB CONC 33.3 g/dl (31.0-37.0); MEAN PLATELET VOLUME 9.5 fl (7.0-11.0); MONO # 0.6 (0.1-0.6); MONO % 3.4 % (1.0-6.0); RBC 5.25 10^6/uL (3.5-6.1); RED CELL DISTRIBUTION WIDTH 13.3 % (11.5-14.5); WHITE BLOOD COUNT 16.2 10^3/uL (4.5-11.0)
[2018-10-20 20:43] LABS: URINE APPEARANCE SLIGHT-CLOUDY (CLEAR); URINE COLOR YELLOW (YELLOW)
[2018-10-20 20:51] LABS: ALB/GLOB RATIO 1.1 (1.1-1.8); ALBUMIN 4.8 g/dL (3.0-4.8); ALT/SGPT 23 U/L (7-56); AST/SGOT 39 U/L (17-59); BLOOD UREA NITROGEN 19 mg/dL (7-21); CALCIUM 9.8 mg/dL (8.4-10.5); GFR NON-AFRICAN AMERICAN > 60
[2018-10-20 20:52] LABS: VENOUS BLOOD GAS BASE EXCESS -2.1 mmol/L (0.0-2.0); VENOUS BLOOD GAS PO2 60 mm/Hg (30-55); VENOUS BLOOD PH 7.31 (7.32-7.43)
[2018-10-20 20:52] LABS: URINE BACTERIA MANY /hpf; URINE WBC 15 - 20 /hpf (0-6)
[2018-10-20] MEDS ORDERED: Cefepime IV 2 gm in NS 2 GM/100 ML BAG IVPB STA (20:52)
[2018-10-20] MEDS ORDERED: Sodium Chloride 0.9% 500 ML IV STA (20:53)
[2018-10-20] MEDS ORDERED: Sodium Chloride 0.9% 1,000 ML IV STA (20:53)
[2018-10-20] MEDS ORDERED: Sodium Chloride 0.9% 1,000 ML IV SCH (23:45)
--- NOTE | 2018-10-20 23:59 | CP.PCM.HP ---
History of Present Illness - History of Present Illness History of Present Illness: HISTORY & PHYSICAL NOTE FOR HOSPITALIST SERVICE MICHAELLE STOCK PGY1 PMH: All: PSH: SH: Hosp: FH: Meds: PMD: Dr. Tierney Pharm: Present on Admission - Present on Admission Any Indicators Present on Admission: Yes Urinary Catheter: Yes Review of Systems - Review of Systems Review of Systems: per HPI Past Patient History - Infectious Disease Hx of Infectious Diseases: None - Tetanus Immunizations Tetanus Immunization: Unknown - Past Medical History & Family History Past Medical History?: Yes - Past Social History Smoking Status: Former Smoker - CARDIAC Hx Cardiac Disorders: Yes Hx Heart Attack: No Hx Hypertension: Yes - PULMONARY Hx Respiratory Disorders: Yes Hx Asthma: Yes Hx Chronic Obstructive Pulmonary Disease (COPD): Yes Hx Emphysema: Yes Hx Respiratory Aspiration: Yes - NEUROLOGICAL Hx Neurological Disorder: Yes HX Cerebrovascular Accident: Yes (left arm contracted) Hx Paralysis: Yes Hx Transient Ischemic Attacks (TIA): Yes - HEENT Hx HEENT Problems: Yes Hx Blind: Yes Hx Cataracts: Yes (RETINAL DETACHMENT BILATERAL) Hx Glaucoma: Yes Other/Comment: TRACHEOSTOMY R/T THROAT CA; REVERSED - RENAL Hx Chronic Kidney Disease: Yes Hx Neurogenic Bladder: Yes Other/Comment: RETENTION, SUPRAPUBIC RODRIGUEZ CATHETER - ENDOCRINE/METABOLIC Hx Endocrine Disorders: Yes Hx Diabetes Mellitus Type 2: Yes (not taking diabetic medication ?. no diagnosis noted) - HEMATOLOGICAL/ONCOLOGICAL Hx Blood Disorders: Yes Hx Anemia: Yes Hx Cancer: Yes (PROSTATE; THROAT AND TONGUE) Hx Chemotherapy: Yes - INTEGUMENTARY Hx Dermatological Problems: Yes Hx Cellulitis: Yes - MUSCULOSKELETAL/RHEUMATOLOGICAL Hx Musculoskeletal Disorders: Yes Hx Falls: Yes Hx Unsteady Gait: Yes (BEDRIDDEN) - GASTROINTESTINAL Hx Gastrointestinal Disorders: Yes Hx Diverticulitis: Yes Hx Hemorrhoids: Yes HX Swallowing Problems: Yes Other/Comment: HIATAL HERNIA, GASTROSTOMY TUBE - GENITOURINARY/GYNECOLOGICAL Hx Genitourinary Disorders: Yes Hx Hematuria: Yes Hx Incontinence: Yes Hx Prostate Cancer: Yes Hx Prostate Problems: Yes Other/Comment: HX: RETENTION. RODRIGUEZ CATHETER DEPENDENT(SUPRAPUBIC CATH IN PLACE) - PSYCHIATRIC Hx Psychophysiologic Disorder: Yes Hx Anxiety: Yes Hx Substance Use: No - SURGICAL HISTORY Other/Comment: HIATAL HERNIA REPAIR; GT PLACEMENT, SUPRA PUBIC CATHETER, TRACH WITH REVERSAL - ANESTHESIA Hx Anesthesia: Yes Hx Anesthesia Reactions: No Hx Malignant Hyperthermia: No Meds Allergies/Adverse Reactions: Allergies Allergy/AdvReac Type Severity Reaction Status Date / Time No Known Allergies Allergy Verified 10/14/18 12:44 Results - Vital Signs Recent Vital Signs: Last Vital Signs Temp 99.4 F 10/20/18 20:12 Pulse 97 H 10/20/18 21:21 Resp 18 10/20/18 21:21 BP 137/73 10/20/18 21:21 Pulse Ox 100 10/20/18 21:21 - Labs Result Diagrams: 10/20/18 20:29 10/20/18 20:29 Labs: Laboratory Results - last 24 hr 10/20/18 10/20/18 10/20/18 20:29 20:29 20:29 WBC 16.2 H D RBC 5.25 Hgb 16.0 D Hct 48.1 MCV 91.6 MCH 30.5 MCHC 33.3 RDW 13.3 Plt Count 205 MPV 9.5 Neut % (Auto) 89.3 H Lymph % (Auto) 6.9 L Navarro % (Auto) 3.4 Eos % (Auto) 0.3 L Baso % (Auto) 0.1 Lymph # (Auto) 1.1 L [place] # (Auto) 0.6 Eos # (Auto) 0.1 Baso # (Auto) 0.02 Absolute Neuts (auto) 14.47 H pO2 VBG pH VBG pCO2 VBG HCO3 VBG Total CO2 VBG O2 Sat (Calc) VBG Base Excess VBG Potassium Glucose Lactate FiO2 Crit Value Called To Crit Value Called By Blood Gas Notified Time Sodium 139 Potassium 4.0 Chloride 101 Carbon Dioxide 24 Anion Gap 18 BUN 19 Creatinine 0.9 Est GFR ( Amer) > 60 Est GFR (Non-Af Amer) > 60 Random Glucose 146 H Calcium 9.8 Magnesium 2.6 H Total Bilirubin 0.5 AST 39 ALT 23 Alkaline Phosphatase 127 H Total Protein 9.4 H Albumin 4.8 Globulin 4.5 Albumin/Globulin Ratio 1.1 Venous Blood Potassium Urine Color Yellow Urine Appearance Slight-cloudy Urine pH 6.5 Ur Specific [place] >= 1.030 Urine Protein 100 H Urine Glucose (UA) Negative Urine Ketones Trace H Urine Blood Small H Urine Nitrate Positive H Urine Bilirubin Negative Urine Urobilinogen 1.0 H Ur Leukocyte Esterase Moderate H Urine RBC 2 - 5 H Urine WBC 15 - 20 H Ur Epithelial Cells None Urine Bacteria Many 10/20/18 20:45 WBC RBC Hgb Hct MCV MCH MCHC RDW Plt Count MPV Neut % (Auto) Lymph % (Auto) [place] % (Auto) Eos % (Auto) Baso % (Auto) Lymph # (Auto) [place] # (Auto) Eos # (Auto) Baso # (Auto) Absolute Neuts (auto) pO2 60 H VBG pH 7.31 L VBG pCO2 49.0 VBG HCO3 24.7 VBG Total CO2 26.2 VBG O2 Sat (Calc) 93.5 H VBG Base Excess -2.1 L VBG Potassium 4.1 Glucose 138 H Lactate 4.3 H* FiO2 21.0 Crit Value Called To [facility] Crit Value Called By Rs Blood Gas Notified Time 2050 Sodium 136.0 Potassium Chloride 103.0 Carbon Dioxide Anion Gap BUN Creatinine Est GFR ( Amer) Est GFR (Non-Af Amer) Random Glucose Calcium Magnesium Total Bilirubin AST ALT Alkaline Phosphatase Total Protein Albumin Globulin Albumin/Globulin Ratio Venous Blood Potassium 4.1 Urine Color Urine Appearance Urine pH Ur Specific [place] Urine Protein Urine Glucose (UA) Urine Ketones Urine Blood Urine Nitrate Urine Bilirubin Urine Urobilinogen Ur Leukocyte Esterase Urine RBC Urine WBC Ur Epithelial Cells Urine Bacteria
[2018-10-21] MEDS ORDERED: Vancomycin 500 mg Inj IVPB STA (00:54)
[2018-10-21] MEDS ORDERED: Vancomycin 750mg 750 MG/250 ML BAG IVPB STA (01:00)
[2018-10-21 01:06] LABS: VENOUS BLOOD GAS PO2 64 mm/Hg (30-55)
--- NOTE | 2018-10-21 04:10 | PCM.SEPTIC ---
Sepsis Progress Note - Reassessment Type Date of Evaluation: 10/21/18 Reassessment Type: Non-invasive reassessment - Non Invasive Reassessment Were the most recent vital sign reviewed: Yes Vital Sign (Latest): Temp Pulse Resp BP Pulse Ox 98.1 F 103 H 20 127/76 100 10/21/18 03:09 10/21/18 03:09 10/21/18 03:09 10/21/18 03:09 10/21/18 03:09 Cardiovascular: Yes: Regular Rate, Rhythm Respiratory: Yes: Normal Breath Sounds Capillary Refill: Normal (Less than 2 sec) Skin: Normal Color
[2018-10-21] MEDS: Sodium Chloride 0.9% 1,000 ML IV SCH ×2 (05:12→15:43)
[2018-10-21] MEDS ORDERED: Meropenem IV 1 gm in NS 1 GM/50 ML BAG IVPB SCH (06:00)
[2018-10-21] MEDS ORDERED: Magnesium Hydroxide Susp 30 ml UD GT PRN (08:57)
--- NOTE | 2018-10-21 09:18 | RAD ---
Date of service: 10/20/2018 HISTORY: aspiration COMPARISON: 04/14/2018 TECHNIQUE: 1 view obtained. FINDINGS: LUNGS: No active pulmonary disease. PLEURA: No significant pleural effusion identified, no pneumothorax apparent. CARDIOVASCULAR: Aortic calcification Normal cardiac size. No pulmonary vascular congestion. OSSEOUS STRUCTURES: No significant abnormalities. VISUALIZED UPPER ABDOMEN: Normal. OTHER FINDINGS: None. IMPRESSION: No active disease.
--- NOTE | 2018-10-21 09:51 | CT ---
Date of service: 10/20/2018 PROCEDURE: CT HEAD WITHOUT CONTRAST. HISTORY: seizure COMPARISON: None available. TECHNIQUE: Axial computed tomography images were obtained through the head/brain without intravenous contrast. Radiation dose: Total exam DLP = 926.74 mGy-cm. This CT exam was performed using one or more of the following dose reduction techniques: Automated exposure control, adjustment of the mA and/or kV according to patient size, and/or use of iterative reconstruction technique. FINDINGS: HEMORRHAGE: No intracranial hemorrhage. BRAIN: No mass effect or edema. 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 There are no acute findings VENTRICLES: Unremarkable. No hydrocephalus. CALVARIUM: Unremarkable. PARANASAL SINUSES: Unremarkable as visualized. No significant inflammatory changes. MASTOID AIR CELLS: Unremarkable as visualized. No inflammatory changes. OTHER FINDINGS: Bilateral phthisis bulbi. 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 There are no acute findings
[2018-10-21] MEDS ORDERED: Ergocalciferol 50,000 Intl Units Cap PO SCH (10:00)
[2018-10-21] MEDS ORDERED: Ergocalciferol 50,000 Intl Units Cap GT SCH (10:30)
[2018-10-21] MEDS: CELECOXIB 200 MG GT SCH (11:01)
[2018-10-21] MEDS: Mupirocin 2% Ointment 15 GM TUBE TOP SCH (11:09)
--- NOTE | 2018-10-21 11:46 | CARD ---
APPROVED REPORT Date of service: 10/20/2018 EKG Measurement Heart [id number] <Conclusion> Sinus tachycardia Otherwise normal ECG
[2018-10-21 13:19] LABS: IRON 122 ug/dL (45-180)
[2018-10-21 13:29] LABS: % IRON SATURATION 47 % (20-55); TOTAL IRON BINDING CAPACITY 261 ug/dL (261-462)
[2018-10-21] MEDS: Zinc Oxide Topical 40% Oint (Desitin) TOP SCH ×2 (14:28→21:31)
--- NOTE | 2018-10-21 15:53 | CP.PCM.CON ---
History of Present Illness - History of Present Illness History of Present Illness: Infectious Disease Consultation: October 21, 2018 67 yo AA male with an extensive medical history that includes HTN, Asthma, COPD, history of head and neck cancer, CVA, legal blindness, and hiatal hernia sent to [facility] from [place] for several episodes of shaking. As per custodial note, the patient was found in the dining area unresponsive and reported as having "grand mal" seizures for 3 minutes. Patient himself doesn't know why he is in the hospital. The seizure occurred on 10/20/2018. ID called for evaluation of potential infectious triggers given prominent history of UTIs. PMHx: HTN, Asthma, COPD, history of head and neck cancer, CVA, legal blindness, and hiatal hernia PSHx: Head and Neck debulking surgery, PEG placement, Suprapubic catheter placement. Allergies: NKDA Social Hx: No tobacco, EtOH, or illicit drug use. 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 [facility] Active Medications Acetaminophen (Tylenol 650mg/20.3ml Solution Ud) 650 mg GT Q4 PRN PRN Reason: Pain, Mild (1-3) Amlodipine Besylate (Norvasc) 10 mg GT DAILY [facility] Last Admin: 10/21/18 11:00 Dose: 10 mg Aspirin (Aspirin Chewable) 81 mg GT DAILY [facility] Last Admin: 10/21/18 11:00 Dose: 81 mg Baclofen (Lioresal) 5 mg NG BID MANNY Last Admin: 10/21/18 10:59 Dose: 5 mg Ergocalciferol (Drisdol 50,000 Intl Units Cap) 1 cap GT QWK MANNY Gabapentin (Neurontin) 100 mg GT HS MANNY; Protocol Sodium Chloride (Sodium Chloride 0.9%) 1,000 mls @ 100 mls/hr IV .Q10H MANNY Last Admin: 10/21/18 05:12 Dose: 100 mls/hr Latanoprost (Xalatan Opht) 0 ml OU HS MANNY Magnesium Hydroxide (Milk Of Magnesia) 30 ml GT HS PRN PRN Reason: Constipation Melatonin (Melatonin) 6 mg PO HS MANNY Metoprolol Tartrate (Lopressor) 50 mg GT DAILY [facility] Last Admin: 10/21/18 10:59 Dose: 50 mg Multivitamins/Vitamin C (Multi-Delyn Liquid) 15 ml GT DAILY [facility] Mupirocin (Bactroban Ointment) 0 gm TOP DAILY [facility] Last Admin: 10/21/18 11:09 Dose: 1 applic Celecoxib [Celebrex] 200 Mg (Home Med) 200 mg GT DAILY [facility] Last Admin: 10/21/18 11:01 Dose: Not Given Pantoprazole Sodium (Protonix Susp) 40 mg GT BID [facility] Petrolatum (Desitin Maximum Strength Topical 40% Oint) 0 gm TOP Q8 [facility] Last Admin: 10/21/18 14:28 Dose: Not Given Sennosides (Senokot Tab) 8.6 mg PEG DAILY [facility] Last Admin: 10/21/18 11:00 Dose: 8.6 mg Family Hx: noncontributory ROS: No fevers, chills, nausea, vomiting, chest pain, abdominal pain, melena, hematuria, hematemesis, hematochezia, depression, anxiety, loss of consciousness. Past Patient History - Infectious Disease Hx of Infectious Diseases: None - Tetanus Immunizations Tetanus Immunization: Unknown - Past Medical History & Family History Past Medical History?: Yes - Past Social History Smoking Status: Former Smoker - CARDIAC Hx Cardiac Disorders: Yes Hx Hypertension: Yes - PULMONARY Hx Respiratory Disorders: Yes Hx Asthma: Yes Hx Chronic Obstructive Pulmonary Disease (COPD): Yes Hx Emphysema: Yes Hx Respiratory Aspiration: Yes - NEUROLOGICAL Hx Neurological Disorder: Yes HX Cerebrovascular Accident: Yes (left arm contracted) Hx Transient Ischemic Attacks (TIA): Yes - HEENT Hx HEENT Problems: Yes Hx Blind: Yes Hx Cataracts: Yes (RETINAL DETACHMENT BILATERAL) Hx Glaucoma: Yes Other/Comment: TRACHEOSTOMY R/T THROAT CA; REVERSED - RENAL Hx Chronic Kidney Disease: Yes Hx Neurogenic Bladder: Yes Other/Comment: RETENTION, SUPRAPUBIC RODRIGUEZ CATHETER - ENDOCRINE/METABOLIC Hx Endocrine Disorders: Yes Hx Diabetes Mellitus Type 2: Yes (not taking diabetic medication ?. no diagnosis noted) - HEMATOLOGICAL/ONCOLOGICAL Hx Blood Disorders: Yes Hx Anemia: Yes Hx Cancer: Yes (PROSTATE; THROAT AND TONGUE) Hx Chemotherapy: Yes - INTEGUMENTARY Hx Dermatological Problems: Yes - MUSCULOSKELETAL/RHEUMATOLOGICAL Hx Musculoskeletal Disorders: Yes Hx Falls: Yes Hx Unsteady Gait: Yes (BEDRIDDEN) - GASTROINTESTINAL Hx Gastrointestinal Disorders: Yes Hx Diverticulitis: Yes HX Swallowing Problems: Yes Other/Comment: HIATAL HERNIA, GASTROSTOMY TUBE - GENITOURINARY/GYNECOLOGICAL Hx Genitourinary Disorders: Yes Hx Hematuria: Yes Hx Incontinence: Yes Hx Prostate Problems: Yes Other/Comment: HX: RETENTION. RODRIGUEZ CATHETER DEPENDENT(SUPRAPUBIC CATH IN PLACE) - PSYCHIATRIC Hx Psychophysiologic Disorder: Yes Hx Anxiety: Yes Hx Substance Use: No - SURGICAL HISTORY Hx Surgeries: Yes Other/Comment: HIATAL HERNIA REPAIR; GT PLACEMENT, SUPRA PUBIC CATHETER, TRACH WITH REVERSAL - ANESTHESIA Hx Anesthesia: Yes Hx Anesthesia Reactions: No Hx Malignant Hyperthermia: No Meds Allergies/Adverse Reactions: Allergies Allergy/AdvReac Type Severity Reaction Status Date / Time No Known Allergies Allergy Verified 10/14/18 12:44 - Medications Medications: Current Medications Acetaminophen (Tylenol 650mg/20.3ml Solution Ud) 650 mg GT Q4 PRN PRN Reason: Pain, Mild (1-3) Amlodipine Besylate (Norvasc) 10 mg GT DAILY [facility] Last Admin: 10/21/18 11:00 Dose: 10 mg Aspirin (Aspirin Chewable) 81 mg GT DAILY [facility] Last Admin: 10/21/18 11:00 Dose: 81 mg Baclofen (Lioresal) 5 mg NG BID [facility] Last Admin: 10/21/18 10:59 Dose: 5 mg Ergocalciferol (Drisdol 50,000 Intl Units Cap) 1 cap GT QWK MANNY Gabapentin (Neurontin) 100 mg GT HS MANNY; Protocol Sodium Chloride (Sodium Chloride 0.9%) 1,000 mls @ 100 mls/hr IV .Q10H [facility] Last Admin: 10/21/18 05:12 Dose: 100 mls/hr Latanoprost (Xalatan Opht) 0 ml OU HS MANNY Magnesium Hydroxide (Milk Of Magnesia) 30 ml GT HS PRN PRN Reason: Constipation Melatonin (Melatonin) 6 mg PO HS MANNY Metoprolol Tartrate (Lopressor) 50 mg GT DAILY [facility] Last Admin: 10/21/18 10:59 Dose: 50 mg Multivitamins/Vitamin C (Multi-Delyn Liquid) 15 ml GT DAILY [facility] Mupirocin (Bactroban Ointment) 0 gm TOP DAILY [facility] Last Admin: 10/21/18 11:09 Dose: 1 applic Celecoxib [Celebrex] 200 Mg (Home Med) 200 mg GT DAILY [facility] Last Admin: 10/21/18 11:01 Dose: Not Given Pantoprazole Sodium (Protonix Susp) 40 mg GT BID [facility] Petrolatum (Desitin Maximum Strength Topical 40% Oint) 0 gm TOP Q8 [facility] Last Admin: 10/21/18 14:28 Dose: Not Given Sennosides (Senokot Tab) 8.6 mg PEG DAILY [facility] Last Admin: 10/21/18 11:00 Dose: 8.6 mg Physical Exam - Constitutional Appears: Non-toxic, No Acute Distress, Chronically Ill - Head Exam Head Exam: ATRAUMATIC, NORMOCEPHALIC - Eye Exam Additional comments: legally blind. - ENT Exam ENT Exam: Mucous Membranes Moist, Normal External Ear Exam, TM's Normal Bilaterally - Neck Exam Neck exam: Positive for: Full Rom, Normal Inspection - Respiratory Exam Respiratory Exam: Clear to Auscultation Bilateral, NORMAL BREATHING PATTERN. absent: Rales, Rhonchi, Wheezes - Cardiovascular Exam Cardiovascular Exam: REGULAR RHYTHM, RRR, +S1, +S2 - GI/Abdominal Exam GI & Abdominal Exam: Normal Bowel Sounds, Soft. absent: Distended, Tenderness Additional comments: PEG in place. Suprapubic catheter in place. - Extremities Exam Extremities exam: Positive for: full ROM, normal inspection - Neurological Exam Neurological exam: Alert, CN II-XII Intact, Oriented x3 - Psychiatric Exam Psychiatric exam: Normal Affect, Normal Mood - Skin Skin Exam: Intact, Normal Color Results - Vital Signs Recent Vital Signs: Last Vital Signs Temp 98 F 10/21/18 12:00 Pulse 87 10/21/18 14:00 Resp 20 10/21/18 12:00 BP 128/78 10/21/18 12:00 Pulse Ox 99 10/21/18 09:00 - Labs Result Diagrams: 10/20/18 20:29 10/20/18 20:29 Labs: Laboratory Results - last 24 hr 10/20/18 10/20/18 10/20/18 20:29 20:29 20:29 WBC 16.2 H D RBC 5.25 Hgb 16.0 D Hct 48.1 MCV 91.6 MCH 30.5 MCHC 33.3 RDW 13.3 Plt Count 205 MPV 9.5 Neut % (Auto) 89.3 H Lymph % (Auto) 6.9 L Fallon % (Auto) 3.4 Eos % (Auto) 0.3 L Baso % (Auto) 0.1 Lymph # (Auto) 1.1 L Fallon # (Auto) 0.6 Eos # (Auto) 0.1 Baso # (Auto) 0.02 Absolute Neuts (auto) 14.47 H pO2 VBG pH VBG pCO2 VBG HCO3 VBG Total CO2 VBG O2 Sat (Calc) VBG Base Excess VBG Potassium Glucose Lactate FiO2 Crit Value Called To Crit Value Called By Blood Gas Notified Time Sodium 139 Potassium 4.0 Chloride 101 Carbon Dioxide 24 Anion Gap 18 BUN 19 Creatinine 0.9 Est GFR ( Amer) > 60 Est GFR (Non-Af Amer) > 60 Random Glucose 146 H Calcium 9.8 Magnesium 2.6 H Iron TIBC % Saturation Total Bilirubin 0.5 AST 39 ALT 23 Alkaline Phosphatase 127 H Total Protein 9.4 H Albumin 4.8 Globulin 4.5 Albumin/Globulin Ratio 1.1 Triglycerides Cholesterol LDL Cholesterol Direct HDL Cholesterol Venous Blood Potassium Urine Color Yellow Urine Appearance Slight-cloudy Urine pH 6.5 Ur Specific Garrett >= 1.030 Urine Protein 100 H Urine Glucose (UA) Negative Urine Ketones Trace H Urine Blood Small H Urine Nitrate Positive H Urine Bilirubin Negative Urine Urobilinogen 1.0 H Ur Leukocyte Esterase Moderate H Urine RBC 2 - 5 H Urine WBC 15 - 20 H Ur Epithelial Cells None Urine Bacteria Many 10/20/18 10/21/18 10/21/18 20:45 00:28 13:00 WBC RBC Hgb Hct MCV MCH MCHC RDW Plt Count MPV Neut % (Auto) Lymph % (Auto) Fallon % (Auto) Eos % (Auto) Baso % (Auto) Lymph # (Auto) Fallon # (Auto) Eos # (Auto) Baso # (Auto) Absolute Neuts (auto) pO2 60 H 64 H VBG pH 7.31 L 7.30 L VBG pCO2 49.0 51.0 VBG HCO3 24.7 25.1 VBG Total CO2 26.2 26.7 VBG O2 Sat (Calc) 93.5 H 94.2 H VBG Base Excess -2.1 L -2.0 L VBG Potassium 4.1 4.1 Glucose 138 H 134 H Lactate 4.3 H* 1.1 FiO2 21.0 21.0 Crit Value Called To Rodora Crit Value Called By Rs Blood Gas Notified Time 2050 Sodium 136.0 138.0 Potassium Chloride 103.0 106.0 Carbon Dioxide Anion Gap BUN Creatinine Est GFR ( Amer) Est GFR (Non-Af Amer) Random Glucose Calcium Magnesium Iron 122 TIBC 261 % Saturation 47 Total Bilirubin AST ALT Alkaline Phosphatase Total Protein Albumin Globulin Albumin/Globulin Ratio Triglycerides Cholesterol LDL Cholesterol Direct HDL Cholesterol Venous Blood Potassium 4.1 4.1 Urine Color Urine Appearance Urine pH Ur Specific Garrett Urine Protein Urine Glucose (UA) Urine Ketones Urine Blood Urine Nitrate Urine Bilirubin Urine Urobilinogen Ur Leukocyte Esterase Urine RBC Urine WBC Ur Epithelial Cells Urine Bacteria 10/21/18 13:00 WBC RBC Hgb Hct MCV MCH MCHC RDW Plt Count MPV Neut % (Auto) Lymph % (Auto) Fallon % (Auto) Eos % (Auto) Baso % (Auto) Lymph # (Auto) Fallon # (Auto) Eos # (Auto) Baso # (Auto) Absolute Neuts (auto) pO2 VBG pH VBG pCO2 VBG HCO3 VBG Total CO2 VBG O2 Sat (Calc) VBG Base Excess VBG Potassium Glucose Lactate FiO2 Crit Value Called To Crit Value Called By Blood Gas Notified Time Sodium Potassium Chloride Carbon Dioxide Anion Gap BUN Creatinine Est GFR ( Amer) Est GFR (Non-Af Amer) Random Glucose Calcium Magnesium Iron TIBC % Saturation Total Bilirubin AST ALT Alkaline Phosphatase Total Protein Albumin Globulin Albumin/Globulin Ratio Triglycerides 94 Cholesterol 188 LDL Cholesterol Direct 121 HDL Cholesterol 33 Venous Blood Potassium Urine Color Urine Appearance Urine pH Ur Specific Garrett Urine Protein Urine Glucose (UA) Urine Ketones Urine Blood Urine Nitrate Urine Bilirubin Urine Urobilinogen Ur Leukocyte Esterase Urine RBC Urine WBC Ur Epithelial Cells Urine Bacteria Assessment & Plan - Assessment and Plan (Free Text) Assessment: 67 yo AA male brought in to [facility] for reported Grand Mal seizure at [facility] ([facility]) facility. Cultures pending. Will start Cefepime for antibiotic coverage for now. Leukocytosis of 16.2 although this can be secondary to the recent "Grand Mal" seizure. Strongly recommend Neurology consult. Spoke with Dr. Tierney. She requested Dr. Goldsmith for the neurology evaluation. Trend WBC. Chest X-ray no acute disease. Urinalysis indicates a potential infection/UTI. Thank you for allowing me to participate in the care of the patient, we will follow with you.
[2018-10-21 17:37] LABS: FOLATE 14.3 ng/mL
[2018-10-21] MEDS: Acetaminophen 650mg/20.3ml solution UD GT PRN ×2 (18:01→21:25)
--- NOTE | 2018-10-21 19:09 | CON ---
DATE OF CONSULTATION: 10/21/2018 PULMONARY CONSULTATION REFERRING PHYSICIAN: Dr. Tierney. REASON FOR CONSULTATION: Chronic lung disease, history of CVA in the remote past, also history of throat cancer, questionable seizures. HISTORY OF PRESENT ILLNESS: This is a 67-year-old gentleman, known history of chronic lung disease, throat cancer, hypertension, stroke, brought in because of episodes of shaking for more than 3 minutes, suspected seizure with mild cough. No shortness of breath or chest pain. No nausea, vomiting, diarrhea, leg pain or leg swelling, presently lying in the bed, in no acute distress. PAST MEDICAL HISTORY: As per history of present illness; also he is blind; history of tracheostomy in the remote past, had been decannulated; has a bladder outlet obstruction requiring suprapubic catheter; diabetes; carries a diagnosis of throat and tongue cancer; also history of prostate cancer in the past, had been on chemotherapy; history of diverticulitis; hemorrhoids; has feeding difficulty, requiring gastrostomy, but also on p.o. diet; also anxiety disorder. ALLERGIES: NONE KNOWN. SOCIAL HISTORY: Former smoker. Denied alcohol use. FAMILY HISTORY: No significant cardiopulmonary disease reported. MEDICATIONS: He is on aspirin 81 mg daily, Bactroban ointment affected area, getting Celebrex 200 mg G-tube daily basis, petroleum jelly affected area, vitamin D 50,000 units weekly, baclofen 5 mg twice a day, metoprolol tartrate 50 mg daily, melatonin 6 mg at bedtime, multivitamins daily, gabapentin 100 mg at bedtime, Norvasc 10 mg daily, Protonix 40 mg twice a day, IV fluid normal saline 100 mL/hour, Tylenol p.r.n. basis, also has eye drops Xalatan, received cefepime 2 g IV one dose, and meropenem 1 g IV was given, also received vancomycin. REVIEW OF SYSTEMS: No headache, no rhinitis. Legally blind. No nausea. Mild cough. No shortness of breath, no chest pain. No nausea, vomiting, diarrhea. Has a G-tube, usually used for medications. No leg pain or leg swelling. PHYSICAL EXAMINATION: GENERAL: No acute distress. VITAL SIGNS: Temperature is 98, heart rate 79, respiratory rate is 20, blood pressure 128/78, pulse ox 99% on 2 liters nasal cannula. HEENT: Moist mucous membranes. Crowded airway. NECK: Supple. No JVD. LUNGS: Have a scattered rhonchi. ABDOMEN: Soft, nontender, nondistended. G-tube area looks okay. EXTREMITIES: There is no edema. NEUROLOGICALLY: Awake, alert, and follows simple commands. LABORATORY DATA: Shows hemoglobin 16, hematocrit 48, WBC 16.2, platelet is 205. Has a VBG done, which showed pH 7.30, pCO2 of 51, O2 of 64. Sodium 139, potassium 4, chloride 101, bicarbonate 24, BUN 19, creatinine 0.9, glucose 146, calcium 9.8, hemoglobin A1c 5.3. Albumin 2.6, AST 39, ALT 23, alk phos is 127. Albumin is 4.8. Cholesterol is 188. Urinalysis shows wbc 15-20, rbc's 2 to 5. CAT scan of the head shows encephalomalacia, otherwise unremarkable. Chest x-ray does not show any infiltrate. IMPRESSION: Suspected seizures, remote history of stroke, chronic lung disease, legally blind, history of tongue and throat cancer, also history of prostate cancer, diabetes, anemia, anxiety disorder, bladder outlet obstruction requiring a suprapubic catheter. PLAN: From pulmonary point of view, doing okay. We will keep head at 45 degrees and add inhaled bronchodilator. Infectious Disease consult, Neurology consult. Gastric prophylaxis, deep venous thrombosis prophylaxis, and pressure ulcer precaution. Thank you, and we will follow with you. Kulwinder Sousa MD
[2018-10-21] MEDS: Budesonide 0.5 mg/2 ml Inhal Susp UD IH SCH (20:13)
[2018-10-21] MEDS: Arformoterol 15 mcg/2 ml Inh Sol IH SCH (20:13)
[2018-10-21] MEDS: Cefepime 1gm in NS 100ml 1 GM/100 ML BAG IVPB SCH (21:24)
[2018-10-21] MEDS: Melatonin 3 MG Tab PO SCH (21:24)
[2018-10-21] MEDS: Latanoprost 2.5 ml Opht Soln OU SCH (21:30)
--- NOTE | 2018-10-21 22:03 | HP ---
DATE OF EXAM: 10/21/2018 The patient was seen and examined at the bedside on 10/21/2018. CHIEF COMPLAINT: Seizure like activity. HISTORY OF PRESENT ILLNESS: Mr. Beny Armando is a 67-year-old male, a resident of [facility] with past medical history of CVA, hypertension, asthma, COPD, throat cancer, came to the emergency department from a custodial after the patient states was shaky for 3 minutes. The patient is brought in for evaluation of suspected seizures. The patient arrived in the emergency room awake, alert and having clear speech. The patient denies any history of seizure. The patient informed of having some abdominal pain especially around the G-tube area. The patient is a very poor historian. No fever. No chills. No headache. No dizziness. PAST MEDICAL HISTORY: History of hypertension, COPD, emphysema, respiratory aspiration, left arm contracted, history of CVA, paralysis, TIA, blind, glaucoma, tracheostomy, colitis, history of throat cancer, diabetes mellitus, anemia, cellulitis. hematuria, incontinence, prostate CA, having a suprapubic catheter in place. FAMILY HISTORY: Father and mother noncontributory. ALLERGIES: NO KNOWN DRUG ALLERGIES. HOME MEDICATIONS: Reviewed by me. REVIEW OF SYSTEMS: The patient was seen and examined at the bedside in his room. Complaining about abdominal pain. No fever. No chills. No hematuria. No hematochezia. No headache. No dizziness. No chest pain. No palpitation. PHYSICAL EXAMINATION: VITAL SIGNS: Temperature 98.5, pulse 107, blood pressure 130/82 and respiratory rate 18. HEENT: Head is normocephalic and atraumatic. Eyes, PERRLA. Extraocular muscles intact. Conjunctiva clear. Nose patent. Mucous membranes moist. NECK: Supple. No carotid bruits. No JVD. No thyromegaly. CHEST: Bilaterally symmetrical. HEART: S1 and S2, positive. LUNGS: Clear to auscultation. ABDOMEN: Soft and tender around the G tube. He has a suprapubic catheter. EXTREMITIES: No edema. No cyanosis. NEUROLOGIC: The patient is awake and alert. Follows simple commands. The patient is blind bilaterally. LABORATORY DATA: White count cells 15.2, hemoglobin 16, hematocrit 48.1 and platelet 205. Sodium 139, potassium 4, BUN 19, creatinine 0.9, glucose 146 and magnesium 2.6. ASSESSMENT AND PLAN: Mr. Beny Armando is a 67-year-old male with leukocytosis, hyperglycemia, hypermagnesemia, abnormal liver function test, proteinuria, ketonuria and hematuria, urinary tract infection. The patient is septic. I appreciated Dr. Ashley Mei's sepsis progress notes. CT scan of the head done. A chest x-ray was done. The patient has multiple comorbid issues, a history of throat cancer. Having a gastrostomy tube. History of asthma and chronic obstructive pulmonary disease. Started antibiotic IV . Ordering a swallowing evaluation. Repeat labs. We will follow up. Azul Tierney MD MTDD
[2018-10-22] MEDS: Sodium Chloride 0.9% 1,000 ML IV SCH ×3 (06:06→10:38)
[2018-10-22] MEDS: Zinc Oxide Topical 40% Oint (Desitin) TOP SCH ×3 (06:08→22:15)
[2018-10-22] MEDS: Budesonide 0.5 mg/2 ml Inhal Susp UD IH SCH ×2 (07:43→20:46)
[2018-10-22] MEDS: Arformoterol 15 mcg/2 ml Inh Sol IH SCH ×2 (07:43→20:45)
[2018-10-22 08:08] LABS: ALB/GLOB RATIO 1.1 (1.1-1.8); ALBUMIN 3.8 g/dL (3.0-4.8); ALT/SGPT 28 U/L (7-56); AST/SGOT 28 U/L (17-59); BLOOD UREA NITROGEN 10 mg/dL (7-21); CALCIUM 8.8 mg/dL (8.4-10.5); GFR NON-AFRICAN AMERICAN > 60
[2018-10-22] MEDS: CELECOXIB 200 MG GT SCH (09:39)
[2018-10-22] MEDS: Cefepime 1gm in NS 100ml 1 GM/100 ML BAG IVPB SCH ×2 (09:50→22:15)
[2018-10-22] MEDS: Multi Vitamins 15 mL UD Oral Solution GT SCH (09:50)
[2018-10-22] MEDS: Enoxaparin 40 mg Syringe SC SCH (09:50)
[2018-10-22] MEDS: Pantoprazole 40 mg Susp UD GT SCH ×2 (09:51→18:16)
[2018-10-22] MEDS: Mupirocin 2% Ointment 15 GM TUBE TOP SCH (10:30)
[2018-10-22] MEDS: Acetaminophen 650mg/20.3ml solution UD GT PRN ×2 (10:38→18:15)
--- NOTE | 2018-10-22 10:47 | PN ---
DATE: 10/22/2018 PULMONARY PROGRESS NOTE REFERRING PHYSICIAN: Azul Tierney MD SUBJECTIVE: The patient seen lying in bed. No acute distress. No overnight events reported. No headache, rhinitis, cough, shortness of breath, chest pain, abdominal pain, nausea, vomiting, diarrhea, leg pain or leg swelling . PHYSICAL EXAMINATION: VITAL SIGNS: Blood pressure 122/75, pulse 76, temperature 97.9, oxygen saturation 100 on nasal cannula. GENERAL: No acute distress. HEENT: Moist mucous membranes. Crowded airway. NECK: Supple. No JVD. LUNGS: Few scattered rhonchi. CARDIOVASCULAR: S1, S2. ABDOMEN: Soft, nontender, nondistended. Gastrostomy tube present. EXTREMITIES: No bilateral lower extremity edema. NEUROLOGIC: Awake, alert, verbal. Following simple commands. MEDICATIONS: Reviewed. Tylenol 650 every 4 hours p.r.n., Norvasc 10 mg daily, Brovana 50 mcg inhalation every 12 hours, aspirin 81 mg daily, baclofen 5 mg twice a day, Pulmicort 0.5 mg inhalation every 12 hours, cefepime 1 g every 12 hours, Lovenox 40 mg subcu daily, ergocalciferol 50,000 units weekly, Neurontin 100 mg at bedtime, latanoprost eyedrops at bedtime, Milk of Magnesia 30 mL p.r.n., melatonin 6 mg at bedtime, metoprolol tartrate 50 mg daily, multivitamins, vitamin C 15 mL daily, Bactroban ointment topically daily to affected areas, Celebrex 200 mg G-tube daily, Protonix 40 mg twice a day, Desitin topically every 8 hours to affected areas, Senokot 8.6 mg daily, sodium chloride 0.9% at 1000 mL at 100 mL per hour. LABORATORY DATA: Reviewed. Sodium 143, potassium 4.2, chloride 101, carbon dioxide 23, anion gap 13, BUN 10, creatinine 0.6, GFR greater than 60, random glucose 85, hemoglobin A1c 5.3, calcium 8.8. Total bilirubin 1.1. AST 28, ALT 28, alkaline phosphatase 94, total protein 7.2, albumin 3.8, globulin 3.4, albumin-globulin ratio 1.1. TSH 0.87. Blood cultures primary no growth after 24 hours. IMPRESSION AND PLAN: Suspected seizures, remote history of stroke, chronic lung disease, legally blind, history of tongue and throat cancer, history of prostate cancer, anxiety disorder, anemia, diabetes mellitus, bladder outlet obstruction requiring catheter. Pulmonary point view, continue inhaled bronchodilators. Head of bed elevated to 45 degrees, aspiration precaution. Deep venous thrombosis prophylaxis, gastric prophylaxis. Pressure ulcer precaution. IV antibiotics per Infectious Disease. Neurology followup. Seizure precautions. The patient was seen and examined with . Discussed assessment and plan as described above. The patient was seen and examined with Kizzy Roche, Nurse Practitioner. Discussed assessment and plan as described above. Thank you for this consult. We will follow with you. Kizzy Roche APN Kulwinder Sousa MD
--- NOTE | 2018-10-22 14:35 | CP.PCM.CON ---
History of Present Illness - History of Present Illness History of Present Illness: Neurology Consultation Note: Consult requested by Dr. Tierney Mr. Armando is a 67-year-old man with a past medical history of previous right MCA stroke, and multiple other co-morbid medical conditions who was witnessed having shaking episodes consistent with generalized seizures at the group home. He was brought to the ED for evaluation of seizure. Labs showed a UTI and elevated lactate levels as well as elevated WBC. Non-contrast CT scan of the head showed the chronic right MCA stroke, but no acute findings. Review of Systems - Review of Systems Systems not reviewed;Unavailable: Altered Mental Status Past Patient History - Infectious Disease Hx of Infectious Diseases: None - Tetanus Immunizations Tetanus Immunization: Unknown - Past Medical History & Family History Past Medical History?: Yes - Past Social History Smoking Status: Former Smoker - CARDIAC Hx Cardiac Disorders: Yes Hx Hypertension: Yes - PULMONARY Hx Respiratory Disorders: Yes Hx Asthma: Yes Hx Chronic Obstructive Pulmonary Disease (COPD): Yes Hx Emphysema: Yes Hx Respiratory Aspiration: Yes - NEUROLOGICAL Hx Neurological Disorder: Yes HX Cerebrovascular Accident: Yes (left arm contracted) Hx Transient Ischemic Attacks (TIA): Yes - HEENT Hx HEENT Problems: Yes Hx Blind: Yes Hx Cataracts: Yes (RETINAL DETACHMENT BILATERAL) Hx Glaucoma: Yes Other/Comment: TRACHEOSTOMY R/T THROAT CA; REVERSED - RENAL Hx Chronic Kidney Disease: Yes Hx Neurogenic Bladder: Yes Other/Comment: RETENTION, SUPRAPUBIC RODRIGUEZ CATHETER - ENDOCRINE/METABOLIC Hx Endocrine Disorders: Yes Hx Diabetes Mellitus Type 2: Yes (not taking diabetic medication ?. no diagnosis noted) - HEMATOLOGICAL/ONCOLOGICAL Hx Blood Disorders: Yes Hx Anemia: Yes Hx Cancer: Yes (PROSTATE; THROAT AND TONGUE) Hx Chemotherapy: Yes - INTEGUMENTARY Hx Dermatological Problems: Yes - MUSCULOSKELETAL/RHEUMATOLOGICAL Hx Musculoskeletal Disorders: Yes Hx Falls: Yes Hx Unsteady Gait: Yes (BEDRIDDEN) - GASTROINTESTINAL Hx Gastrointestinal Disorders: Yes Hx Diverticulitis: Yes HX Swallowing Problems: Yes Other/Comment: HIATAL HERNIA, GASTROSTOMY TUBE - GENITOURINARY/GYNECOLOGICAL Hx Genitourinary Disorders: Yes Hx Hematuria: Yes Hx Incontinence: Yes Hx Prostate Problems: Yes Other/Comment: HX: RETENTION. RODRIGUEZ CATHETER DEPENDENT(SUPRAPUBIC CATH IN PLACE) - PSYCHIATRIC Hx Psychophysiologic Disorder: Yes Hx Anxiety: Yes Hx Substance Use: No - SURGICAL HISTORY Hx Surgeries: Yes Other/Comment: HIATAL HERNIA REPAIR; GT PLACEMENT, SUPRA PUBIC CATHETER, TRACH WITH REVERSAL - ANESTHESIA Hx Anesthesia: Yes Hx Anesthesia Reactions: No Hx Malignant Hyperthermia: No Meds Allergies/Adverse Reactions: Allergies Allergy/AdvReac Type Severity Reaction Status Date / Time No Known Allergies Allergy Verified 10/14/18 12:44 - Medications Medications: Current Medications Acetaminophen (Tylenol 650mg/20.3ml Solution Ud) 650 mg GT Q4 PRN PRN Reason: Pain, Mild (1-3) Last Admin: 10/22/18 10:38 Dose: 650 mg Amlodipine Besylate (Norvasc) 10 mg GT DAILY [facility] Last Admin: 10/22/18 09:50 Dose: 10 mg Arformoterol Tartrate (Brovana) 15 mcg IH [id number] [facility] Last Admin: 10/22/18 07:43 Dose: 15 mcg Aspirin (Aspirin Chewable) 81 mg GT DAILY [facility] Last Admin: 10/22/18 09:49 Dose: 81 mg Baclofen (Lioresal) 5 mg NG BID [facility] Last Admin: 10/22/18 09:49 Dose: 5 mg Budesonide (Pulmicort Respules) 0.5 mg IH [id number] [facility] Last Admin: 10/22/18 07:43 Dose: 0.5 mg Enoxaparin Sodium (Lovenox) 40 mg SC DAILY [facility]; Protocol Last Admin: 10/22/18 09:50 Dose: 40 mg Ergocalciferol (Drisdol 50,000 Intl Units Cap) 1 cap GT QWK [facility] Gabapentin (Neurontin) 100 mg GT HS [facility]; Protocol Last Admin: 10/21/18 21:24 Dose: 100 mg Sodium Chloride (Sodium Chloride 0.9%) 1,000 mls @ 100 mls/hr IV .Q10H [facility] Last Admin: 10/22/18 10:38 Dose: Not Given Cefepime HCl (Maxipime 1gm) 1 gm in 100 mls @ 100 mls/hr IVPB Q12 [facility]; Protocol Last Admin: 10/22/18 09:50 Dose: 100 mls/hr Latanoprost (Xalatan Opht) 0 ml OU HS [facility] Last Admin: 10/21/18 21:30 Dose: 2.5 ml Magnesium Hydroxide (Milk Of Magnesia) 30 ml GT HS PRN PRN Reason: Constipation Last Admin: 10/22/18 13:24 Dose: 30 ml Melatonin (Melatonin) 6 mg PO HS [facility] Last Admin: 10/21/18 21:24 Dose: 6 mg Metoprolol Tartrate (Lopressor) 50 mg GT DAILY [facility] Last Admin: 10/22/18 09:49 Dose: 50 mg Multivitamins/Vitamin C (Multi-Delyn Liquid) 15 ml GT DAILY [facility] Last Admin: 10/22/18 09:50 Dose: 15 ml Mupirocin (Bactroban Ointment) 0 gm TOP DAILY [facility] Last Admin: 10/22/18 10:30 Dose: Not Given Celecoxib [Celebrex] 200 Mg (Home Med) 200 mg GT DAILY [facility] Last Admin: 10/22/18 09:39 Dose: Not Given Pantoprazole Sodium (Protonix Susp) 40 mg GT BID [facility] Last Admin: 10/22/18 09:51 Dose: 40 mg Petrolatum (Desitin Maximum Strength Topical 40% Oint) 0 gm TOP Q8 [facility] Last Admin: 10/22/18 13:24 Dose: Not Given Sennosides (Senokot Tab) 8.6 mg PEG DAILY [facility] Last Admin: 10/22/18 10:30 Dose: 8.6 mg Tramadol HCl (Ultram) 50 mg PO DAILY PRN PRN Reason: Pain, moderate (4-7) Physical Exam - Constitutional Appears: Well - Head Exam Head Exam: ATRAUMATIC, NORMAL INSPECTION, NORMOCEPHALIC - Eye Exam Eye Exam: EOMI, Normal appearance, PERRL Pupil Exam: NORMAL ACCOMODATION, PERRL - ENT Exam ENT Exam: Mucous Membranes Moist, Normal Exam - Neck Exam Neck exam: Positive for: Normal Inspection - Respiratory Exam Respiratory Exam: Clear to Auscultation Bilateral, NORMAL BREATHING PATTERN - Cardiovascular Exam Cardiovascular Exam: REGULAR RHYTHM, +S1, +S2 - GI/Abdominal Exam GI & Abdominal Exam: Normal Bowel Sounds, Soft. absent: Tenderness - Extremities Exam Extremities exam: Positive for: normal inspection - Back Exam Back exam: NORMAL INSPECTION - Neurological Exam Neurological exam: Alert, Altered, CN II-XII Intact Additional comments: Completely blind. Speech fluent, but he is confused. Left side hemiplegia, left side hyper-reflexia, gait not tested. - Psychiatric Exam Psychiatric exam: Normal Affect, Normal Mood - Skin Skin Exam: Dry, Intact, Normal Color, Warm Results - Vital Signs Recent Vital Signs: Last Vital Signs Temp 97.4 F L 10/22/18 12:00 Pulse 78 10/22/18 12:00 Resp 19 10/22/18 12:00 BP 112/75 10/22/18 12:00 Pulse Ox 100 10/22/18 06:00 - Labs Result Diagrams: 10/20/18 20:29 10/22/18 07:00 Labs: Laboratory Results - last 24 hr 10/21/18 10/21/18 10/22/18 13:00 13:00 07:00 Sodium 143 Potassium 4.2 Chloride 111 H Carbon Dioxide 23 Anion Gap 13 BUN 10 Creatinine 0.6 L Est GFR ( Amer) > 60 Est GFR (Non-Af Amer) > 60 Random Glucose 85 Hemoglobin A1c 5.3 Calcium 8.8 Total Bilirubin 1.1 AST 28 ALT 28 Alkaline Phosphatase 94 Total Protein 7.2 Albumin 3.8 Globulin 3.4 Albumin/Globulin Ratio 1.1 Vitamin B12 621 Folate 14.3 TSH 3rd Generation 10/22/18 07:00 Sodium Potassium Chloride Carbon Dioxide Anion Gap BUN Creatinine Est GFR ( Amer) Est GFR (Non-Af Amer) Random Glucose Hemoglobin A1c Calcium Total Bilirubin AST ALT Alkaline Phosphatase Total Protein Albumin Globulin Albumin/Globulin Ratio Vitamin B12 Folate TSH 3rd Generation 0.87 Assessment & Plan (1) Seizure Assessment and Plan: The patient appears to have UTI and sepsis, and with the history of previous stroke, he likely had a seizure. I will start him on Keppra 500 mg BID for prophylaxis against seizures. Continue medical management per primary team. No further recommendations. Thank you. Status: Acute
[2018-10-22] MEDS: levETIRAcetam 500 mg/5ml UD cups PO SCH (18:15)
--- NOTE | 2018-10-22 19:45 | CP.PCM.PN ---
Subjective - Date & Time of Evaluation Date of Evaluation: 10/22/18 Time of Evaluation: 15:45 - Subjective Subjective: Infectious Disease Follow Up: October 22, 2018 67 yo AA male with an extensive medical history that includes HTN, Asthma, COPD, history of head and neck cancer, CVA, legal blindness, and hiatal hernia sent to [facility] from [place] for several episodes of shaking. As per usp note, the patient was found in the dining area unresponsive and reported as having "grand mal" seizures for 3 minutes. Patient himself is more awake and alert today and states he was sent to the hospital for seizure. He states also states that he has a gap in his memory at the time the seizure is recorded at the Nursing Facility. The seizure occurred on 10/20/2018. ID called for evaluation of potential infectious triggers given prominent history of UTIs. Urine cultures showing Gram Negative Rods. Cefepime started for treatment on 10/21/2018. Will consider carbapenem if necessary given the carbapenem has the potential to decrease seizure threshold. Fluoroquinolones are also not useable by the patient for the same reason. Objective - Vital Signs/Intake and Output Vital Signs (last 24 hours): Temp Pulse Resp BP Pulse Ox 97.4 F L 82 19 112/75 100 10/22/18 12:00 10/22/18 14:00 10/22/18 12:00 10/22/18 12:00 10/22/18 06:00 Intake and Output: 10/22/18 10/23/18 18:59 06:59 Intake Total 360 Output Total 2500 Balance -2140 - Medications Medications: Current Medications Acetaminophen (Tylenol 650mg/20.3ml Solution Ud) 650 mg GT Q4 PRN PRN Reason: Pain, Mild (1-3) Last Admin: 10/22/18 18:15 Dose: 650 mg Amlodipine Besylate (Norvasc) 10 mg GT DAILY [facility] Last Admin: 10/22/18 09:50 Dose: 10 mg Arformoterol Tartrate (Brovana) 15 mcg IH [id number] [facility] Last Admin: 10/22/18 07:43 Dose: 15 mcg Aspirin (Aspirin Chewable) 81 mg GT DAILY [facility] Last Admin: 10/22/18 09:49 Dose: 81 mg Baclofen (Lioresal) 5 mg NG BID [facility] Last Admin: 10/22/18 18:16 Dose: 5 mg Budesonide (Pulmicort Respules) 0.5 mg IH [id number] [facility] Last Admin: 10/22/18 07:43 Dose: 0.5 mg Enoxaparin Sodium (Lovenox) 40 mg SC DAILY [facility]; Protocol Last Admin: 10/22/18 09:50 Dose: 40 mg Ergocalciferol (Drisdol 50,000 Intl Units Cap) 1 cap GT QWK [facility] Gabapentin (Neurontin) 100 mg GT HS [facility]; Protocol Last Admin: 10/21/18 21:24 Dose: 100 mg Sodium Chloride (Sodium Chloride 0.9%) 1,000 mls @ 100 mls/hr IV .Q10H [facility] Last Admin: 10/22/18 10:38 Dose: Not Given Cefepime HCl (Maxipime 1gm) 1 gm in 100 mls @ 100 mls/hr IVPB Q12 [facility]; Protocol Last Admin: 10/22/18 09:50 Dose: 100 mls/hr Latanoprost (Xalatan Opht) 0 ml OU HS [facility] Last Admin: 10/21/18 21:30 Dose: 2.5 ml Levetiracetam (Keppra) 500 mg PO BID [facility] Last Admin: 10/22/18 18:15 Dose: 500 mg Magnesium Hydroxide (Milk Of Magnesia) 30 ml GT HS PRN PRN Reason: Constipation Last Admin: 10/22/18 13:24 Dose: 30 ml Melatonin (Melatonin) 6 mg PO HS [facility] Last Admin: 10/21/18 21:24 Dose: 6 mg Metoprolol Tartrate (Lopressor) 50 mg GT DAILY [facility] Last Admin: 10/22/18 09:49 Dose: 50 mg Multivitamins/Vitamin C (Multi-Delyn Liquid) 15 ml GT DAILY [facility] Last Admin: 10/22/18 09:50 Dose: 15 ml Mupirocin (Bactroban Ointment) 0 gm TOP DAILY [facility] Last Admin: 10/22/18 10:30 Dose: Not Given Celecoxib [Celebrex] 200 Mg (Home Med) 200 mg GT DAILY [facility] Last Admin: 10/22/18 09:39 Dose: Not Given Pantoprazole Sodium (Protonix Susp) 40 mg GT BID [facility] Last Admin: 10/22/18 18:16 Dose: 40 mg Petrolatum (Desitin Maximum Strength Topical 40% Oint) 0 gm TOP Q8 [facility] Last Admin: 10/22/18 13:24 Dose: Not Given Sennosides (Senokot Tab) 8.6 mg PEG DAILY [facility] Last Admin: 10/22/18 10:30 Dose: 8.6 mg - Labs Labs: 10/20/18 20:29 10/22/18 07:00 - Constitutional Appears: Non-toxic, No Acute Distress, Chronically Ill - Head Exam Head Exam: ATRAUMATIC, NORMOCEPHALIC - Eye Exam Additional comments: legally blind. - ENT Exam ENT Exam: Mucous Membranes Moist, Normal External Ear Exam, TM's Normal Bilaterally - Neck Exam Neck Exam: Full ROM, Normal Inspection - Respiratory Exam Respiratory Exam: Clear to Ausculation Bilateral, NORMAL BREATHING PATTERN. absent: Rales, Rhonchi, Wheezes - Cardiovascular Exam Cardiovascular Exam: REGULAR RHYTHM, RRR, +S1, +S2 - GI/Abdominal Exam GI & Abdominal Exam: Soft, Normal Bowel Sounds. absent: Distended, Tenderness Additional comments: PEG in place. Suprapubic catheter in place. - Extremities Exam Extremities Exam: Full ROM, Normal Inspection - Neurological Exam Neurological Exam: Alert, Awake, CN II-XII Intact, Oriented x3 - Psychiatric Exam Psychiatric exam: Normal Affect, Normal Mood - Skin Skin Exam: Intact, Normal Color Assessment and Plan - Assessment and Plan (Free Text) Assessment: 67 yo AA male brought in to [facility] for reported Grand Mal seizure at [facility] facility. Cultures pending. Will start Cefepime for antibiotic coverage for now. Leukocytosis of 16.2 although this can be secondary to the recent "Grand Mal" seizure. Patient seen by Dr. Turcios for neurology evaluation. Trend WBC. Chest X-ray no acute disease. Urinalysis indicates a potential infection/UTI. Gram negative rods on urine cultures. Continuing on Cefepime for antibiotic coverage. Meropenem will be considered if necessary... there would be concerns for decreasing the seizure threshold with carbapenems and fluoroquinolone usage. Thank you for allowing me to participate in the care of the patient, we will follow with you.
--- NOTE | 2018-10-22 21:10 | PN ---
DATE: 10/22/2018 SUBJECTIVE: The patient was seen and examined at the bedside on 10/22/2018, complaining about body aches. No fever, no chills. No hematuria or hematochezia. No headache, dizziness. No chest pain. No palpitation. No more seizure. No vomiting. PHYSICAL EXAMINATION VITAL SIGNS: Blood pressure 122/75, pulse 76, temperature 97.9, oxygen saturation 100% on nasal canula. HEENT: Head normocephalic, atraumatic. Eyes PERRLA. Extraocular muscles intact. Conjunctiva clear. Nose patent. Mucous membranes moist. NECK: Supple. No carotid bruit. No JVD or thyromegaly. CHEST: Bilaterally symmetrical. HEART: S1 and S2 positive. LUNGS: Clear to auscultation. ABDOMEN: Soft. Bowel sounds present. No organomegaly. EXTREMITIES: No edema, no cyanosis. NEUROLOGIC: The patient is awake and alert. Follows simple commands. MEDICATIONS: Tylenol, Norvasc, Brovana, baclofen, Pulmicort, cefepime and Lovenox, vitamin D, Neurontin, Milk of Magnesia, melatonin, Celebrex, Protonix, Senokot. LABORATORY DATA: Sodium 143, potassium 4.2, BUN 10, creatinine 0.66, hemoglobin A1c 5.3, AST 28, ALT 28, TSH 0.87. Blood cultures, no growth after 24 hours. ASSESSMENT AND PLAN: Mr. Beny Armando is a 67-year-old male with multiple medical problems, has new onset seizures, history of stroke, chronic obstructive pulmonary disease, legally blind, history of tongue, mouth and throat cancer, prostate cancer, anxiety, anemia, diabetes mellitus, bladder outlet obstruction requiring a suprapubic catheter, has percutaneous endoscopic gastrostomy tube, getting nutrition with the percutaneous endoscopic gastrostomy tube and medications with the percutaneous endoscopic gastrostomy tube also. In the rehab, the patient was on Celebrex for generalized body pain, but [facility] does not have Celebrex so we gave the patient Tylenol. As per the patient the Tylenol is working. I gave one dose of tramadol to see the effect, but we cannot continue tramadol because of seizure precautions. Gastrointestinal and deep venous thrombosis prophylaxis. Repeat labs. The patient is seen by the neurologist, Dr. Aydin Turcios. The patient has right middle cerebral artery stroke and multiple comorbid medical conditions, urinary tract infection and sepsis and history of previous stroke. He likely had a seizure. Dr. Turcios started the patient on Keppra b.i.d. for treatment and prophylaxis of seizures. Continue the rest of the treatment. Repeat labs. We will follow up. Azul Tierney MD
[2018-10-22] MEDS: Melatonin 3 MG Tab PO SCH (22:16)
[2018-10-22] MEDS: Latanoprost 2.5 ml Opht Soln OU SCH (22:18)
[2018-10-23] MEDS: Sodium Chloride 0.9% 1,000 ML IV SCH ×2 (02:02→16:30)
[2018-10-23] MEDS: Zinc Oxide Topical 40% Oint (Desitin) TOP SCH ×3 (05:45→22:11)
[2018-10-23] MEDS: Budesonide 0.5 mg/2 ml Inhal Susp UD IH SCH ×2 (07:51→20:55)
[2018-10-23] MEDS: Arformoterol 15 mcg/2 ml Inh Sol IH SCH ×2 (07:52→20:55)
--- NOTE | 2018-10-23 08:11 | PN ---
DATE: 10/23/2018 REFERRING PHYSICIAN: Azul Tierney MD SUBJECTIVE: The patient is seen, lying in bed. No acute distress. No overnight events reported. Reports feeling well today. No headache, rhinitis, cough, shortness of breath, chest pain, abdominal pain, nausea, vomiting, diarrhea, leg pain, or leg swelling reported. OBJECTIVE: VITAL SIGNS: Blood pressure 131/79, pulse 82, temperature 97.8, oxygen saturation 97 nasal cannula. GENERAL: No acute distress. HEENT: Moist mucous membranes. Crowded airway. NECK: Supple. No JVD. LUNGS: Fair airflow bilaterally. CARDIOVASCULAR: S1, S2. ABDOMEN: Soft, nontender. No distention. Gastrostomy tube present. EXTREMITIES: No bilateral lower extremity edema. NEUROLOGIC: Awake, alert and verbal. Following commands. MEDICATIONS: Reviewed. Tylenol 650 every 4 hours p.r.n., Norvasc 10 mg daily, Brovana 15 mcg every 12 hours, aspirin 81 mg daily, baclofen 5 mg twice a day, Pulmicort 0.5 mg inhalation every 12 hours, cefepime 1 g every 12 hours, Lovenox 40 mg subcu daily, ergocalciferol 50,000 units weekly, gabapentin 100 mg at bedtime, latanoprost eyedrops at bedtime, Keppra 500 mg twice a day, Milk of magnesia 30 mL at bedtime p.r.n., melatonin 6 mg at bedtime, metoprolol tartrate 50 mg daily, multivitamins, vitamin C 15 mL daily, Bactroban topically to affected area daily, Celebrex 200 mg daily, Protonix 40 mg twice a day, Desitin topically every 8 hours to affected areas, Senokot 8.6 mg daily, sodium chloride 0.9% at 1000 mL at 100 mL per hour. LABORATORY DATA: Reviewed. Urine culture preliminary shows gram-negative rods. Blood cultures preliminary, no growth after 48 hours IMPRESSION AND PLAN: Suspected seizures, sepsis. Urinalysis is showing potential urinary tract infection. History of stroke, chronic lung disease, legally blind, history of tongue and throat cancer, history of prostate cancer, anxiety disorder, anemia, diabetes mellitus, bladder outlet obstruction requiring catheter. Pulmonary point view, continue inhaled bronchodilators. Head of bed elevated to 45 degrees, aspiration precaution. Deep venous thrombosis prophylaxis, gastric prophylaxis. Pressure ulcer precaution. Continue antibiotics per Infectious Disease. Neurology followup. Seizure precautions. Recommend out of bed to chair. Fall precaution. The patient was seen and examined with Dr. Sousa. Discussed assessment and plan as described above. The patient was seen and examined with Kizzy Roche, Nurse Practitioner. Discussed assessment and plan as described above. Thank you for this consult. We will follow with you. Kizzy Roche APN Kuwlinder Sousa MD ALEXI
[2018-10-23] MEDS: levETIRAcetam 500 mg/5ml UD cups PO SCH ×2 (10:33→18:19)
[2018-10-23] MEDS: Cefepime 1gm in NS 100ml 1 GM/100 ML BAG IVPB SCH ×2 (10:41→22:08)
[2018-10-23] MEDS: Multi Vitamins 15 mL UD Oral Solution GT SCH (10:41)
[2018-10-23] MEDS: Enoxaparin 40 mg Syringe SC SCH (10:41)
[2018-10-23] MEDS: Pantoprazole 40 mg Susp UD GT SCH ×2 (10:46→18:19)
[2018-10-23] MEDS: CELECOXIB 200 MG GT SCH (10:53)
[2018-10-23 11:37] LABS: HEMOGLOBIN 13.7 g/dL (14.0-18.0); MEAN CELL VOLUME 91.8 fl (80.0-105.0); MEAN CORPUSCULAR HEMOGLOBIN 30.3 pg (25.0-35.0); MEAN PLATELET VOLUME 9.1 fl (7.0-11.0); RBC 4.52 10^6/uL (3.5-6.1); RED CELL DISTRIBUTION WIDTH 13.2 % (11.5-14.5); WHITE BLOOD COUNT 5.6 10^3/uL (4.5-11.0)
[2018-10-23 12:09] LABS: BLOOD UREA NITROGEN 7 mg/dL (7-21); CALCIUM 9.2 mg/dL (8.4-10.5); GFR NON-AFRICAN AMERICAN > 60
[2018-10-23] MEDS: Mupirocin 2% Ointment 15 GM TUBE TOP SCH (18:18)
--- NOTE | 2018-10-23 18:38 | CP.PCM.PN ---
Subjective - Date & Time of Evaluation Date of Evaluation: 10/23/18 Time of Evaluation: 16:15 - Subjective Subjective: Infectious Disease Follow Up: October 23, 2018 67 yo AA male with an extensive medical history that includes HTN, Asthma, COPD, history of head and neck cancer, CVA, legal blindness, and hiatal hernia sent to [facility] from [place] for several episodes of shaking. As per custodial note, the patient was found in the dining area unresponsive and reported as having "grand mal" seizures for 3 minutes. Patient himself is more awake and alert today and states he was sent to the hospital for seizure. He states also states that he has a gap in his memory at the time the seizure is recorded at the Nursing Facility. The seizure occurred on 10/20/2018. ID called for evaluation of potential infectious triggers given prominent history of UTIs. Urine cultures showing Gram Negative Rods. Cefepime started for treatment on 10/21/2018. Will consider carbapenem if necessary given the carbapenem has the potential to decrease seizure threshold. Fluoroquinolones are also not useable by the patient for the same reason. Identification showing Providencia and Pseudomonas growth. Both are sensitive to Cefepime. He is currently making no complaints. Objective - Vital Signs/Intake and Output Vital Signs (last 24 hours): Temp Pulse Resp BP Pulse Ox 98 F 76 18 116/75 100 10/23/18 17:41 10/23/18 17:41 10/23/18 17:41 10/23/18 17:41 10/23/18 17:41 Intake and Output: 10/23/18 10/23/18 06:59 18:59 Intake Total 1320 1560 Output Total 1200 2000 Balance 120 -440 - Medications Medications: Current Medications Acetaminophen (Tylenol 650mg/20.3ml Solution Ud) 650 mg GT Q4 PRN PRN Reason: Pain, Mild (1-3) Last Admin: 10/22/18 18:15 Dose: 650 mg Amlodipine Besylate (Norvasc) 10 mg GT DAILY [facility] Last Admin: 10/23/18 10:35 Dose: 10 mg Arformoterol Tartrate (Brovana) 15 mcg IH [id number] [facility] Last Admin: 10/23/18 07:52 Dose: 15 mcg Aspirin (Aspirin Chewable) 81 mg GT DAILY [facility] Last Admin: 10/23/18 10:33 Dose: 81 mg Baclofen (Lioresal) 5 mg NG BID [facility] Last Admin: 10/23/18 10:33 Dose: 5 mg Budesonide (Pulmicort Respules) 0.5 mg IH [id number] [facility] Last Admin: 10/23/18 07:51 Dose: 0.5 mg Enoxaparin Sodium (Lovenox) 40 mg SC DAILY [facility]; Protocol Last Admin: 10/23/18 10:41 Dose: 40 mg Ergocalciferol (Drisdol 50,000 Intl Units Cap) 1 cap GT QWK [facility] Gabapentin (Neurontin) 100 mg GT HS [facility]; Protocol Last Admin: 10/22/18 22:17 Dose: 100 mg Sodium Chloride (Sodium Chloride 0.9%) 1,000 mls @ 100 mls/hr IV .Q10H [facility] Last Admin: 10/23/18 16:30 Dose: 100 mls/hr Cefepime HCl (Maxipime 1gm) 1 gm in 100 mls @ 100 mls/hr IVPB Q12 [facility]; Protocol Last Admin: 10/23/18 10:41 Dose: 100 mls/hr Latanoprost (Xalatan Opht) 0 ml OU HS [facility] Last Admin: 10/22/18 22:18 Dose: 2.5 ml Levetiracetam (Keppra) 500 mg PO BID [facility] Last Admin: 10/23/18 18:19 Dose: 500 mg Magnesium Hydroxide (Milk Of Magnesia) 30 ml GT HS PRN PRN Reason: Constipation Last Admin: 10/22/18 13:24 Dose: 30 ml Melatonin (Melatonin) 6 mg PO HS [facility] Last Admin: 10/22/18 22:16 Dose: 6 mg Metoprolol Tartrate (Lopressor) 50 mg GT DAILY [facility] Last Admin: 10/23/18 10:36 Dose: 50 mg Multivitamins/Vitamin C (Multi-Delyn Liquid) 15 ml GT DAILY [facility] Last Admin: 10/23/18 10:41 Dose: 15 ml Mupirocin (Bactroban Ointment) 0 gm TOP DAILY [facility] Last Admin: 10/23/18 18:18 Dose: 1 applic Celecoxib [Celebrex] 200 Mg (Home Med) 200 mg GT DAILY [facility] Last Admin: 10/23/18 10:53 Dose: Not Given Pantoprazole Sodium (Protonix Susp) 40 mg GT BID [facility] Last Admin: 10/23/18 18:19 Dose: 40 mg Petrolatum (Desitin Maximum Strength Topical 40% Oint) 0 gm TOP Q8 [facility] Last Admin: 10/23/18 14:20 Dose: 1 applic Sennosides (Senokot Tab) 8.6 mg PEG DAILY [facility] Last Admin: 10/23/18 10:35 Dose: 8.6 mg - Labs Labs: 10/23/18 11:30 10/23/18 11:30 - Constitutional Appears: Non-toxic, No Acute Distress, Chronically Ill - Head Exam Head Exam: ATRAUMATIC, NORMOCEPHALIC - Eye Exam Additional comments: legally blind. - ENT Exam ENT Exam: Mucous Membranes Moist, Normal External Ear Exam, TM's Normal Bilate rally - Neck Exam Neck Exam: Full ROM, Normal Inspection - Respiratory Exam Respiratory Exam: Clear to Ausculation Bilateral, NORMAL BREATHING PATTERN. absent: Rales, Rhonchi, Wheezes - Cardiovascular Exam Cardiovascular Exam: REGULAR RHYTHM, RRR, +S1, +S2 - GI/Abdominal Exam GI & Abdominal Exam: Soft, Normal Bowel Sounds. absent: Distended, Tenderness Additional comments: PEG in place. Suprapubic catheter in place. - Extremities Exam Extremities Exam: Full ROM, Normal Inspection - Neurological Exam Neurological Exam: Alert, Awake, CN II-XII Intact, Oriented x3 - Psychiatric Exam Psychiatric exam: Normal Affect, Normal Mood - Skin Skin Exam: Intact, Normal Color Assessment and Plan - Assessment and Plan (Free Text) Assessment: 67 yo AA male brought in to [facility] for reported Grand Mal seizure at [facility]) facility. Cultures pending. Will start Cefepime for antibiotic coverage for now. Leukocytosis of 16.2 although this can be secondary to the recent "Grand Mal" seizure. Patient seen by Dr. Turcios for neurology evaluation. Trend WBC. Chest X-ray no acute disease. Urinalysis indicates a potential infection/UTI. Gram negative rods on urine cultures. Continuing on Cefepime for antibiotic coverage. Meropenem will be considered if necessary... there would be concerns for decreasing the seizure threshold with carbapenems and fluoroquinolone usage. Identification showing Pseudomonas and Providencia. Both are sensitive to Cefepime. Consider 7-10 of antibiotic treatment. Thank you for allowing me to participate in the care of the patient, we will follow with you.
[2018-10-23] MEDS: Melatonin 3 MG Tab PO SCH (22:07)
[2018-10-23] MEDS: Latanoprost 2.5 ml Opht Soln OU SCH (22:09)
[2018-10-24] MEDS: Sodium Chloride 0.9% 1,000 ML IV SCH ×3 (02:30→17:53)
[2018-10-24] MEDS: Zinc Oxide Topical 40% Oint (Desitin) TOP SCH ×3 (06:30→21:30)
[2018-10-24] MEDS: Arformoterol 15 mcg/2 ml Inh Sol IH SCH ×2 (07:52→19:55)
[2018-10-24] MEDS: Budesonide 0.5 mg/2 ml Inhal Susp UD IH SCH ×2 (07:52→19:55)
--- NOTE | 2018-10-24 10:10 | PN ---
DATE: 10/23/2018 SUBJECTIVE: The patient is a 67-year-old male. The patient was seen and examined at the bedside on 10/23/2018. Looking comfortable. No fever. No chills. No hematuria. No hematochezia. No headache. No dizziness. No chest pain. No palpitation. No swelling of the legs. PHYSICAL EXAMINATION: VITAL SIGNS: Blood pressure 130/79, pulse 80, temperature 98.1, oxygen saturation 98%. HEENT: Head: Normocephalic, atraumatic. Eyes: Closed. Nose patent. Mucous membranes moist. NECK: Supple. No carotid bruit. No JVD or thyromegaly. CHEST: Bilaterally symmetrical. HEART: S1 and S2 positive. LUNGS: Clear to auscultation. ABDOMEN: Soft. Bowel sounds present. No organomegaly. EXTREMITIES: No edema. No cyanosis. NEUROLOGIC: The patient is awake and alert. Moving all four extremities. No focal deficits. MEDICATIONS: Tylenol, Norvasc, Brovana, baclofen, Pulmicort, cefepime, Lovenox, milk of magnesia. LABORATORY DATA: Urine culture preliminary shows gram-negative rods. Blood culture preliminary, no growth after 48 hours. ASSESSMENT AND PLAN: The patient is a 67-year-old male with multiple medical problems. He has seizures, rule out sepsis, urinary tract infection, history of blind, stroke, chronic obstructive lung disease, history of tongue/throat cancer, prostate cancer, has suprapubic Martinez catheter, anxiety disorder, The patient is getting intravenous antibiotics. Neurologist for new-onset seizures and Infectious Disease is on the case. Continue antibiotics as per Infectious Disease. Seizure precautions. Bedside physical therapy. Repeat labs. We will follow up. Azul Tierney MD MTDD
[2018-10-24] MEDS: Pantoprazole 40 mg Susp UD GT SCH ×2 (10:46→17:47)
[2018-10-24] MEDS: levETIRAcetam 500 mg/5ml UD cups PO SCH ×2 (10:47→17:48)
[2018-10-24] MEDS: Cefepime 1gm in NS 100ml 1 GM/100 ML BAG IVPB SCH ×2 (10:51→21:30)
--- NOTE | 2018-10-24 13:25 | PN ---
DATE: 10/24/2018 REFERRING PHYSICIAN: Azul Tierney MD SUBJECTIVE: The patient is seen, lying in bed. No acute distress. No overnight events reported. No headache, rhinitis, cough, shortness of breath, chest pain, abdominal pain, nausea, vomiting, diarrhea, leg pain, or leg swelling reported. OBJECTIVE: VITAL SIGNS: Blood pressure 124/74, pulse 70, temperature 98.7 and oxygen saturation 96. GENERAL: No acute distress. HEENT: Moist mucous membranes. Crowded airway. NECK: Supple. No JVD. LUNGS: Fair airflow bilaterally. CARDIOVASCULAR: S1 and S2. ABDOMEN: Soft and nontender. No distention. Gastrostomy tube present. EXTREMITIES: No bilateral lower extremity edema. NEUROLOGIC: Awake, alert and verbal. Following commands. MEDICATIONS: Reviewed. Tylenol 650 every 4 hours p.r.n., Norvasc 10 mg daily, Brovana 15 mcg every 12 hours, aspirin 81 mg daily, baclofen 5 mg twice a day, Pulmicort 0.5 mg inhalation every 12 hours, cefepime 1 g every 12 hours, Lovenox 40 mg subcu daily, ergocalciferol 50,000 units weekly, gabapentin 100 mg at bedtime, latanoprost eyedrops at bedtime, Keppra 500 mg twice a day, Milk of magnesia 30 mL G-tube at bedtime p.r.n., melatonin 6 mg at bedtime, metoprolol tartrate 50 mg daily, multivitamins, vitamin C 15 mL daily, Bactroban topically daily, Celebrex 200 mg daily, Protonix 40 mg twice a day, Desitin topically every 8 hours to affected areas, Senokot 8.6 mg daily, sodium chloride 0.9% at 1000 mL at 100 mL per hour. LABORATORY DATA: Reviewed. Procalcitonin less than 0.05. Blood cultures preliminary, no growth after 3 days. IMPRESSION AND PLAN: Suspected seizures, sepsis, urinary tract infection, history of stroke, chronic lung disease, legally blind, history of tongue and throat cancer, history of prostate cancer, anxiety disorder, anemia, diabetes mellitus, bladder outlet obstruction requiring catheter. Pulmonary point of view, continue inhaled bronchodilators. Aspiration precautions. Deep venous thrombosis prophylaxis, gastric prophylaxis and pressure ulcer precaution. Head of bed elevated at 45 degrees. Continue antibiotics per Infectious Disease. Seizure precautions. Recommend out of bed to chair. The patient was seen and examined with Dr. Sousa. Discussed assessment and plan as described above. The patient was seen and examined with Kizzy Roche, Nurse Practitioner. Discussed assessment and plan as described above. Thank you for this consult and we will follow with you. Kizzy Roche APN Kulwinder Sousa MD
[2018-10-24] MEDS: Enoxaparin 40 mg Syringe SC SCH (17:47)
[2018-10-24] MEDS: Multi Vitamins 15 mL UD Oral Solution GT SCH (17:50)
[2018-10-24] MEDS: Mupirocin 2% Ointment 15 GM TUBE TOP SCH (18:07)
[2018-10-24] MEDS: CELECOXIB 200 MG GT SCH (18:07)
--- NOTE | 2018-10-24 18:34 | CP.PCM.PN ---
Subjective - Date & Time of Evaluation Date of Evaluation: 10/24/18 Time of Evaluation: 17:30 - Subjective Subjective: Infectious Disease Follow Up: October 24, 2018 67 yo AA male with an extensive medical history that includes HTN, Asthma, COPD, history of head and neck cancer, CVA, legal blindness, and hiatal hernia sent to [facility] from [place] for several episodes of shaking. As per senior care note, the patient was found in the dining area unresponsive and reported as having "grand mal" seizures for 3 minutes. Patient himself is more awake and alert today and states he was sent to the hospital for seizure. He states also states that he has a gap in his memory at the time the seizure is recorded at the Nursing Facility. The seizure occurred on 10/20/2018. ID called for evaluation of potential infectious triggers given prominent history of UTIs. Urine cultures showing Gram Negative Rods. Cefepime started for treatment on 10/21/2018. Will consider carbapenem if necessary given the carbapenem has the potential to decrease seizure threshold. Fluoroquinolones are also not useable by the patient for the same reason. Identification showing Providencia and Pseudomonas growth. Both are sensitive to Cefepime. He is currently making no complaints. No further seizure episodes. Tolerating Cefepime. Objective - Vital Signs/Intake and Output Vital Signs (last 24 hours): Temp Pulse Resp BP Pulse Ox 97.9 F 92 H 18 137/69 96 10/24/18 17:24 10/24/18 17:49 10/24/18 17:24 10/24/18 17:50 10/24/18 06:00 Intake and Output: 10/24/18 10/24/18 06:59 18:59 Intake Total 1560 Output Total 1200 Balance 360 - Medications Medications: Current Medications Acetaminophen (Tylenol 650mg/20.3ml Solution Ud) 650 mg GT Q4 PRN PRN Reason: Pain, Mild (1-3) Last Admin: 10/22/18 18:15 Dose: 650 mg Amlodipine Besylate (Norvasc) 10 mg GT DAILY [facility] Last Admin: 10/24/18 17:50 Dose: 10 mg Arformoterol Tartrate (Brovana) 15 mcg IH [id number] [facility] Last Admin: 10/24/18 07:52 Dose: 15 mcg Aspirin (Aspirin Chewable) 81 mg GT DAILY [facility] Last Admin: 10/24/18 10:48 Dose: 81 mg Baclofen (Lioresal) 5 mg NG BID [facility] Last Admin: 10/24/18 17:49 Dose: 5 mg Budesonide (Pulmicort Respules) 0.5 mg IH [id number] [facility] Last Admin: 10/24/18 07:52 Dose: 0.5 mg Enoxaparin Sodium (Lovenox) 40 mg SC DAILY [facility]; Protocol Last Admin: 10/24/18 17:47 Dose: 40 mg Ergocalciferol (Drisdol 50,000 Intl Units Cap) 1 cap GT QWK [facility] Gabapentin (Neurontin) 100 mg GT HS [facility]; Protocol Last Admin: 10/23/18 22:07 Dose: 100 mg Sodium Chloride (Sodium Chloride 0.9%) 1,000 mls @ 100 mls/hr IV .Q10H [facility] Last Admin: 10/24/18 17:53 Dose: 100 mls/hr Cefepime HCl (Maxipime 1gm) 1 gm in 100 mls @ 100 mls/hr IVPB Q12 [facility]; Protocol Last Admin: 10/24/18 10:51 Dose: 100 mls/hr Latanoprost (Xalatan Opht) 0 ml OU HS [facility] Last Admin: 10/23/18 22:09 Dose: 2.5 ml Levetiracetam (Keppra) 500 mg PO BID [facility] Last Admin: 10/24/18 17:48 Dose: 500 mg Magnesium Hydroxide (Milk Of Magnesia) 30 ml GT HS PRN PRN Reason: Constipation Last Admin: 10/22/18 13:24 Dose: 30 ml Melatonin (Melatonin) 6 mg PO HS [facility] Last Admin: 10/23/18 22:07 Dose: 6 mg Metoprolol Tartrate (Lopressor) 50 mg GT DAILY [facility] Last Admin: 10/24/18 17:49 Dose: 50 mg Multivitamins/Vitamin C (Multi-Delyn Liquid) 15 ml GT DAILY [facility] Last Admin: 10/24/18 17:50 Dose: 15 ml Mupirocin (Bactroban Ointment) 0 gm TOP DAILY [facility] Last Admin: 10/24/18 18:07 Dose: 1 applic Celecoxib [Celebrex] 200 Mg (Home Med) 200 mg GT DAILY [facility] Last Admin: 10/24/18 18:07 Dose: Not Given Pantoprazole Sodium (Protonix Susp) 40 mg GT BID [facility] Last Admin: 10/24/18 17:47 Dose: 40 mg Petrolatum (Desitin Maximum Strength Topical 40% Oint) 0 gm TOP Q8 [facility] Last Admin: 10/24/18 17:54 Dose: 1 applic Sennosides (Senokot Tab) 8.6 mg PEG DAILY [facility] Last Admin: 10/24/18 10:48 Dose: 8.6 mg - Labs Labs: 10/23/18 11:30 10/23/18 11:30 - Constitutional Appears: Non-toxic, No Acute Distress, Chronically Ill - Head Exam Head Exam: ATRAUMATIC, NORMOCEPHALIC - Eye Exam Additional comments: legally blind - ENT Exam ENT Exam: Mucous Membranes Moist, Normal External Ear Exam, TM's Normal Bilaterally - Neck Exam Neck Exam: Full ROM, Normal Inspection - Respiratory Exam Respiratory Exam: Clear to Ausculation Bilateral, NORMAL BREATHING PATTERN. absent: Rales, Rhonchi, Wheezes - Cardiovascular Exam Cardiovascular Exam: REGULAR RHYTHM, RRR, +S1, +S2 - GI/Abdominal Exam GI & Abdominal Exam: Soft, Normal Bowel Sounds. absent: Distended, Tenderness Additional comments: PEG in place. Suprapubic catheter in place. - Extremities Exam Extremities Exam: Full ROM, Normal Inspection - Neurological Exam Neurological Exam: Alert, Awake, CN II-XII Intact, Oriented x3 - Psychiatric Exam Psychiatric exam: Normal Affect, Normal Mood - Skin Skin Exam: Intact, Normal Color Assessment and Plan - Assessment and Plan (Free Text) Assessment: 67 yo AA male brought in to [facility] for reported Grand Mal seizure at [facility]) facility. Cultures pending. Will start Cefepime for antibiotic coverage for now. Leukocytosis of 16.2 although this can be secondary to the recent "Grand Mal" seizure. Patient seen by Dr. Turcios for neurology evaluation. Trend WBC. Chest X-ray no acute disease. Urinalysis indicates a potential infection/UTI. Gram negative rods on urine cultures. Continuing on Cefepime for antibiotic coverage. Meropenem will be considered if necessary... there would be concerns for decreasing the seizure threshold with carbapenems and fluoroquinolone usage. WBC of 5.6 on 10/23/2018. Identification showing Pseudomonas and Providencia. Both are sensitive to Cefepime. Consider 7-10 of antibiotic treatment. Thank you for allowing me to participate in the care of the patient, we will follow with you.
[2018-10-24] MEDS: Latanoprost 2.5 ml Opht Soln OU SCH (21:29)
[2018-10-24] MEDS: Melatonin 3 MG Tab PO SCH (21:31)
--- NOTE | 2018-10-25 02:01 | PN ---
This case was discussed with Dr. Tierney she is inagreemenst with treatment plan. DATE: 10/24/2018 SUBJECTIVE: This is a 67-year-old male patient at [facility]. The patient was noted to have seizure that lasted three to five seconds at snf, increasingly lethargic, more confused. PAST MEDICAL HISTORY: Hypertension, COPD, urinary tract infection, dysphagia, esophagitis, laryngeal malignancy. I saw the patient at bedside today. He was alert and oriented times 2 to 3. Denied chest pain or shortness of breath. Denied hematuria, hematochezia, fevers, or chills. PHYSICAL EXAMINATION: VITAL SIGNS: Temperature 97.9, pulse 67, blood pressure 130/82, respiratory rate 18, saturation 97% on room air. GENERAL: The patient was chronically ill. HEENT: Normocephalic, atraumatic. PERRLA. Mucous membranes moist. NECK: Supple. No thyromegaly. RESPIRATORY: Clear to auscultation. No wheeze. No rhonchi. CARDIOVASCULAR: S1 and S2. No JVD. ABDOMEN: Soft and nontender. No organomegaly. Positive bowel sounds. EXTREMITIES: The patient is moving all extremities. No edema. No cyanosis. NEUROLOGIC: The patient is alert and oriented times 2 to 3 with some cognitive deficits. MEDICATIONS: Norvasc, Brovana, aspirin, baclofen, Pulmicort, Maxipime 1 g IV piggyback, Lovenox, Drisdol 50,000 weekly, Neurontin, azelastine ophthalmic, Keppra, Milk of Magnesia, melatonin, Lopressor. LABORATORY DATA: Hematology; white blood cells 5.6, hemoglobin 13.7, hematocrit 41.5, platelet count 170. Sodium 145, potassium 3.4, BUN 7, creatinine 0.6, GFR is over 60, hemoglobin 5.3. Urine positive for nitrite, leukocyte, red blood cells 2 to 5. ASSESSMENT AND PLAN: This is a 67-year-old male patient of [facility]. The patient came in with change in mental status, increased lethargy, seizure activity. The patient's urinalysis is positive for nitrites and leukocyte esterase. Infectious Disease is on the case. The patient is being managed with intravenous antibiotics. The patient is also on Keppra 500 b.i.d. The patient given azelastine ophthalmology drops for glaucoma. Gastric and deep vein thrombosis prophylaxes maintained. The patient continues on Norvasc and aspirin. Neurology on case for grand mal seizure. Infectious Disease on the case for sepsis urinary tract infection. Cardiology on case for shortness of breath. We will follow up. ALL ABOVE NOTED , EDUCATION DONE , AGREED WITH MITER CUTTER .CHART , MEDS AND LABS NOTED . CONT. ANB PER ID Johnathon Lagunas APN Azul Tierney MD [email or web address]
[2018-10-25] MEDS: Sodium Chloride 0.9% 1,000 ML IV SCH ×4 (02:27→18:35)
[2018-10-25] MEDS: Zinc Oxide Topical 40% Oint (Desitin) TOP SCH ×3 (05:46→21:37)
[2018-10-25] MEDS: Budesonide 0.5 mg/2 ml Inhal Susp UD IH SCH ×2 (07:43→19:43)
[2018-10-25] MEDS: Arformoterol 15 mcg/2 ml Inh Sol IH SCH ×2 (07:43→19:43)
[2018-10-25] MEDS: Pantoprazole 40 mg Susp UD GT SCH ×2 (11:11→17:35)
[2018-10-25] MEDS: Multi Vitamins 15 mL UD Oral Solution GT SCH (11:11)
[2018-10-25] MEDS: Enoxaparin 40 mg Syringe SC SCH (11:12)
[2018-10-25] MEDS: levETIRAcetam 500 mg/5ml UD cups PO SCH ×2 (11:12→17:35)
[2018-10-25] MEDS: Cefepime 1gm in NS 100ml 1 GM/100 ML BAG IVPB SCH ×2 (11:35→21:37)
--- NOTE | 2018-10-25 13:34 | PN ---
DATE: 10/25/2018 REFERRING PHYSICIAN: Azul Tierney MD SUBJECTIVE: The patient is seen, lying in bed. No acute distress. No overnight events reported. Reports feeling well this morning. No headache, rhinitis, cough, shortness of breath, chest pain, abdominal pain, nausea, vomiting, diarrhea, leg pain, or leg swelling reported. PHYSICAL EXAMINATION: VITAL SIGNS: Blood pressure 139/81, pulse 76, temperature 97.3 and oxygen saturation 100% on nasal cannula. GENERAL: No acute distress. HEENT: Moist mucous membranes. Crowded airway. NECK: Supple. No JVD. LUNGS: Fair airflow bilaterally. CARDIOVASCULAR: S1 and S2. ABDOMEN: Soft and nontender. No distention. Gastrostomy tube present. EXTREMITIES: No bilateral lower extremity edema. NEUROLOGIC: Awake, alert and verbal. Following commands. MEDICATIONS: Reviewed. Tylenol 650 every 4 hours p.r.n., Norvasc 10 mg daily, Brovana 15 mcg every 12 hours, aspirin 81 mg daily, baclofen 5 mg twice a day, Pulmicort 0.5 mg inhalation every 12 hours, cefepime 1 g every 12 hours, Lovenox 40 mg subcu daily, ergocalciferol 50,000 units weekly, Neurontin 100 mg at bedtime, latanoprost eyedrops at bedtime, Keppra 500 mg twice a day, milk of magnesia 30 mL at bedtime p.r.n., melatonin 6 mg at bedtime, metoprolol tartrate 50 mg G-tube daily, multivitamins, vitamin C 15 mL G-tube daily, Bactroban topically daily to affected areas, Celebrex 200 mg daily, Protonix 40 mg twice a day, Desitin topically every 8 hours to affected areas, Senokot 8.6 mg daily, and sodium chloride 0.9% at 1000 mL at 100 mL per hour. LABORATORY DATA: Reviewed. No new labs. Blood cultures preliminary, no growth after 4 days. IMPRESSION AND PLAN: Suspected seizures, sepsis, urinary tract infection, history of stroke, chronic lung disease, legally blind, history of prostate cancer, anxiety disorder, anemia, history of tongue and throat cancer, diabetes mellitus, bladder outlet obstruction requiring catheter. Pulmonary point of view, the patient is stable from pulmonary point of view. Continue inhaled bronchodilators. Aspiration precautions. Deep venous thrombosis prophylaxis, gastric prophylaxis and pressure ulcer precaution. Head of bed elevated at 45 degrees. Continue antibiotics per Infectious Disease. Seizure precautions. Recommend discharge planning, out of bed to chair. The patient was seen and examined with Dr. Sousa. Discussed assessment and plan as described above. The patient was seen and examined with Kizzy Roche, Nurse Practitioner. Discussed assessment and plan as described above. Thank you for this consult and we will follow with you. Kizzy Roche APN Kulwinder Sousa MD ALEXI
[2018-10-25] MEDS: CELECOXIB 200 MG GT SCH (14:32)
--- NOTE | 2018-10-25 14:59 | CP.PCM.PN ---
Subjective - Date & Time of Evaluation Date of Evaluation: 10/25/18 Time of Evaluation: 14:00 - Subjective Subjective: Infectious Disease Follow Up: October 25, 2018 67 yo AA male with an extensive medical history that includes HTN, Asthma, COPD, history of head and neck cancer, CVA, legal blindness, and hiatal hernia sent to [facility] [place] for several episodes of shaking. As per snf note, the patient was found in the dining area unresponsive and reported as having "grand mal" seizures for 3 minutes. Patient himself is more awake and alert today and states he was sent to the hospital for seizure. He states also states that he has a gap in his memory at the time the seizure is recorded at the Nursing Facility. The seizure occurred on 10/20/2018. ID called for evaluation of potential infectious triggers given prominent history of UTIs. Urine cultures showing Gram Negative Rods. Cefepime started for treatment on 10/21/2018. Will consider carbapenem if necessary given the carbapenem has the potential to decrease seizure threshold. Fluoroquinolones are also not useable by the patient for the same reason. Identification showing Providencia and Pseudomonas growth. Both are sensitive to Cefepime. No oral options for treatment of the Pseudomonas. On day 4 of treatment now. He is currently making no complaints. No further seizure episodes. Tolerating Cefepime. Objective - Vital Signs/Intake and Output Vital Signs (last 24 hours): Temp Pulse Resp BP Pulse Ox 97.5 F L 80 18 108/69 100 10/25/18 12:00 10/25/18 12:00 10/25/18 12:00 10/25/18 12:00 10/25/18 12:00 Intake and Output: 10/25/18 10/25/18 06:59 18:59 Intake Total 2325 Output Total 3450 Balance -1125 - Medications Medications: Current Medications Acetaminophen (Tylenol 650mg/20.3ml Solution Ud) 650 mg GT Q4 PRN PRN Reason: Pain, Mild (1-3) Last Admin: 10/22/18 18:15 Dose: 650 mg Amlodipine Besylate (Norvasc) 10 mg GT DAILY [facility] Last Admin: 10/25/18 11:11 Dose: 10 mg Arformoterol Tartrate (Brovana) 15 mcg IH [id number] [facility] Last Admin: 10/25/18 07:43 Dose: 15 mcg Aspirin (Aspirin Chewable) 81 mg GT DAILY [facility] Last Admin: 10/25/18 11:12 Dose: 81 mg Baclofen (Lioresal) 5 mg NG BID [facility] Last Admin: 10/25/18 11:32 Dose: 5 mg Budesonide (Pulmicort Respules) 0.5 mg IH [id number] [facility] Last Admin: 10/25/18 07:43 Dose: 0.5 mg Enoxaparin Sodium (Lovenox) 40 mg SC DAILY [facility]; Protocol Last Admin: 10/25/18 11:12 Dose: 40 mg Ergocalciferol (Drisdol 50,000 Intl Units Cap) 1 cap GT QWK [facility] Gabapentin (Neurontin) 100 mg GT HS [facility]; Protocol Last Admin: 10/24/18 21:30 Dose: 100 mg Sodium Chloride (Sodium Chloride 0.9%) 1,000 mls @ 100 mls/hr IV .Q10H [facility] Last Admin: 10/25/18 08:32 Dose: Not Given Cefepime HCl (Maxipime 1gm) 1 gm in 100 mls @ 100 mls/hr IVPB Q12 [facility]; Protocol Last Admin: 10/25/18 11:35 Dose: 100 mls/hr Latanoprost (Xalatan Opht) 0 ml OU HS [facility] Last Admin: 10/24/18 21:29 Dose: 2.5 ml Levetiracetam (Keppra) 500 mg PO BID [facility] Last Admin: 10/25/18 11:12 Dose: 500 mg Magnesium Hydroxide (Milk Of Magnesia) 30 ml GT HS PRN PRN Reason: Constipation Last Admin: 10/22/18 13:24 Dose: 30 ml Melatonin (Melatonin) 6 mg PO HS [facility] Last Admin: 10/24/18 21:31 Dose: 6 mg Metoprolol Tartrate (Lopressor) 50 mg GT DAILY [facility] Last Admin: 10/25/18 11:11 Dose: 50 mg Multivitamins/Vitamin C (Multi-Delyn Liquid) 15 ml GT DAILY [facility] Last Admin: 10/25/18 11:11 Dose: 15 ml Mupirocin (Bactroban Ointment) 0 gm TOP DAILY [facility] Last Admin: 10/24/18 18:07 Dose: 1 applic Celecoxib [Celebrex] 200 Mg (Home Med) 200 mg GT DAILY [facility] Last Admin: 10/25/18 14:32 Dose: Not Given Pantoprazole Sodium (Protonix Susp) 40 mg GT BID [facility] Last Admin: 10/25/18 11:11 Dose: 40 mg Petrolatum (Desitin Maximum Strength Topical 40% Oint) 0 gm TOP Q8 [facility] Last Admin: 10/25/18 05:46 Dose: 1 applic Sennosides (Senokot Tab) 8.6 mg PEG DAILY [facility] Last Admin: 10/25/18 11:11 Dose: 8.6 mg - Labs Labs: 10/23/18 11:30 10/23/18 11:30 - Constitutional Appears: Non-toxic, No Acute Distress, Chronically Ill - Head Exam Head Exam: ATRAUMATIC, NORMOCEPHALIC - Eye Exam Eye Exam: EOMI, PERRL Pupil Exam: NORMAL ACCOMODATION, PERRL - ENT Exam ENT Exam: Mucous Membranes Moist, Normal External Ear Exam, TM's Normal Bilaterally - Neck Exam Neck Exam: Full ROM, Normal Inspection - Respiratory Exam Respiratory Exam: Clear to Ausculation Bilateral, NORMAL BREATHING PATTERN. absent: Rales, Rhonchi, Wheezes - Cardiovascular Exam Cardiovascular Exam: REGULAR RHYTHM, RRR, +S1, +S2 - GI/Abdominal Exam GI & Abdominal Exam: Soft, Normal Bowel Sounds. absent: Distended, Tenderness Additional comments: PEG in place. Suprapubic catheter in place. - Extremities Exam Extremities Exam: Full ROM, Normal Inspection - Neurological Exam Neurological Exam: Alert, Awake, CN II-XII Intact, Oriented x3 - Psychiatric Exam Psychiatric exam: Normal Affect, Normal Mood - Skin Skin Exam: Intact, Normal Color Assessment and Plan - Assessment and Plan (Free Text) Assessment: 67 yo AA male brought in to [facility] [place] for reported Grand Mal seizure at [facility] facility. Cultures pending. Will start Cefepime for antibiotic coverage for now. Leukocytosis of 16.2 although this can be secondary to the recent "Grand Mal" seizure. Patient seen by Dr. Turcios for neurology evaluation. Trend WBC. Chest X-ray no acute disease. Urinalysis indicates a potential infection/UTI. Gram negative rods on urine cultures. Continuing on Cefepime for antibiotic coverage. Meropenem will be considered if necessary... there would be concerns for decreasing the seizure threshold with carbapenems and fluoroquinolone usage. WBC of 5.6 on 10/23/2018. Identification showing Pseudomonas and Providencia. Both are sensitive to Cefepime. Consider 7-10 of antibiotic treatment. On day 4 of treatment. Can consider midline placement and completing antibiotics in LTC. No available oral treatment for Pseudomonas with resistance to Fluoroquinolones. Thank you for allowing me to participate in the care of the patient, we will follow with you.
[2018-10-25] MEDS: Mupirocin 2% Ointment 15 GM TUBE TOP SCH (15:00)
[2018-10-25] MEDS: Acetaminophen 650mg/20.3ml solution UD GT PRN ×2 (18:35→21:50)
[2018-10-25] MEDS: Latanoprost 2.5 ml Opht Soln OU SCH (21:35)
[2018-10-25] MEDS: Melatonin 3 MG Tab PO SCH (21:35)
[2018-10-26] MEDS: Zinc Oxide Topical 40% Oint (Desitin) TOP SCH (05:18)
[2018-10-26] MEDS: Sodium Chloride 0.9% 1,000 ML IV SCH (05:19)
[2018-10-26 06:21] VITALS: O2SAT 96
[2018-10-26] MEDS: Budesonide 0.5 mg/2 ml Inhal Susp UD IH SCH (07:27)
[2018-10-26] MEDS: Arformoterol 15 mcg/2 ml Inh Sol IH SCH (07:27)
--- NOTE | 2018-10-26 08:35 | PN ---
DATE: 10/25/2018 SUBJECTIVE: The patient was seen and examined at the bedside on 10/25/2018, looking comfortable. No changes in status. No fever. No chills. No hematuria. No hematochezia. No headache. No dizziness. No chest pain. No palpitations. PHYSICAL EXAMINATION: VITAL SIGNS: Blood pressure 140/80, pulse 75, temperature 98.3, and oxygen saturation 100% on nasal cannula. HEENT: Head; normocephalic, atraumatic. Eyes; PERRLA. Extraocular muscles intact. Conjunctivae clear. Nose patent. Mucous membranes moist. NECK: Supple. No carotid bruit. No JVD. No thyromegaly. CHEST: Bilaterally symmetrical. HEART: S1 and S2 positive. LUNGS: Clear to auscultation. ABDOMEN: Soft. Has PEG tube and a urostomy bag, suprapubic. Urostomy catheter, suprapubic. EXTREMITIES: No edema, no cyanosis. NEUROLOGIC: The patient is awake, alert. Follows simple commands. Patient is bilaterally blind. MEDICATIONS: Tylenol, Norvasc, Brovana, baclofen, Pulmicort, Lovenox, Neurontin. LABORATORY DATA: We do not have recent labs today, but I reviewed old labs. Blood culture preliminary no growth after 4 days. ASSESSMENT AND PLAN: Mr. Beny Armando is a 67-year-old male with multiple medical problems, seizures, sepsis, urinary tract infection, history of stroke, chronic obstructive pulmonary disease, legally blind, history of prostate cancer got treatment with radiation and chemotherapy, anxiety disorder, history of tongue, pharynx and larynx throat cancer, diabetes mellitus and bladder outlet obstruction requiring suprapubic catheter. Patient is getting intravenous antibiotics as per Infectious Disease. Gastrointestinal and deep venous thrombosis prophylaxis. Seizure precautions. Urinalysis done, identification showing Pseudomonas and Providencia, both are sensitive to cefepime. Consider 7 to 10 days of antibiotics, today is day 4 of treatment, can consider midline placement and completing antibiotics in LTC. I gave order for midline placement. No available treatment for Pseudomonas as they are resistant to fluoroquinolones. We will follow up. Azul Tierney MD
[2018-10-26] MEDS: Pantoprazole 40 mg Susp UD GT SCH ×2 (09:17→18:17)
[2018-10-26] MEDS: Enoxaparin 40 mg Syringe SC SCH (09:17)
[2018-10-26] MEDS: Multi Vitamins 15 mL UD Oral Solution GT SCH (09:17)
[2018-10-26] MEDS: Cefepime 1gm in NS 100ml 1 GM/100 ML BAG IVPB SCH (09:17)
[2018-10-26] MEDS: levETIRAcetam 500 mg/5ml UD cups PO SCH ×2 (09:17→18:18)
[2018-10-26] MEDS: CELECOXIB 200 MG GT SCH (09:21)
[2018-10-26] MEDS: Mupirocin 2% Ointment 15 GM TUBE TOP SCH (09:21)
[2018-10-26 13:17] VITALS: BP 107/74; PULSE 96; RESP 19; TEMP 98.4
--- NOTE | 2018-10-26 13:37 | PN ---
DATE: 10/26/2018 PULMONARY PROGRESS NOTE REFERRING PHYSICIAN: Dr. Azul Tierney. SUBJECTIVE: The patient is seen lying in bed. No acute distress. No overnight events reported. No headache, rhinitis, cough, shortness of breath, chest pain, abdominal pain, nausea, vomiting, diarrhea, leg pain, and leg swelling reported. OBJECTIVE: GENERAL: No acute distress. VITAL SIGNS: Blood pressure 118/76, pulse 79, temperature 97.4, and oxygen saturation 96% on nasal cannula. HEENT: Moist mucous membranes. Crowded airway. NECK: Supple. No JVD. LUNGS: Fair airflow bilaterally. CARDIOVASCULAR: S1 and S2. ABDOMEN: Soft and nontender. No distention. Gastrostomy tube present. EXTREMITIES: No bilateral lower extremity edema. NEUROLOGIC: Awake, alert, and verbal. Following commands. MEDICATIONS: Reviewed. Tylenol 650 every 4 hours p.r.n., Norvasc 10 mg G-tube daily, Brovana 15 mcg inhalation every 12 hours, aspirin 81 mg G-tube daily, baclofen 5 mg nasogastric twice a day, Pulmicort 0.5 mg inhalation every 12 hours, cefepime 1 g every 12 hours, Lovenox 40 mg subcutaneous daily, ergocalciferol 50,000 units weekly, gabapentin 100 mg G-tube at bedtime, latanoprost eyedrops at bedtime, Keppra 500 mg twice a day, milk of magnesia 30 mL at bedtime p.r.n., melatonin 6 mg at bedtime, metoprolol tartrate 50 mg G-tube daily, multivitamins, vitamin C 15 mL G-tube daily, Bactroban topically daily to affected areas, Celebrex 200 mg daily, Protonix 40 mg twice a day, Desitin topically every 8 hours to affected areas, Senokot 8.6 mg daily, and sodium chloride 0.9% at 1000 mL at 100 mL per hour. LABORATORY DATA: Reviewed. No new labs. IMPRESSION AND PLAN: Suspected seizures, sepsis, urinary tract infection, history of stroke, chronic lung disease, legally blind, anxiety disorder, history of prostate cancer, anemia, history of tongue and throat cancer, diabetes mellitus, and bladder outlet obstruction requiring catheter. Pulmonary point of view, continue inhaled bronchodilators, aspiration precautions, deep venous thrombosis prophylaxis, gastric prophylaxis, head of bed elevated at 45 degrees, antibiotics per Infectious Disease, seizure precautions, discharge planning, and out of bed to chair. The patient was seen and examined with Dr. Sousa. Discussed assessment and plan as described above. The patient was seen and examined with Kizzy Roche, Nurse Practitioner. Discussed assessment and plan as described above. Thank you for this consult. We will follow with you. Kizzy Roche APN Kulwinder Sousa MD
--- NOTE | 2018-10-26 16:22 | CP.PCM.PN ---
Subjective - Date & Time of Evaluation Date of Evaluation: 10/26/18 Time of Evaluation: 15:00 - Subjective Subjective: Infectious Disease Follow Up: October 26, 2018 67 yo AA male with an extensive medical history that includes HTN, Asthma, COPD, history of head and neck cancer, CVA, legal blindness, and hiatal hernia sent to [facility] [place] episodes of shaking. As per alf note, the patient was found in the dining area unresponsive and reported as having "grand mal" seizures for 3 minutes. Patient himself is more awake and alert today and states he was sent to the hospital for seizure. He states also states that he has a gap in his memory at the time the seizure is recorded at the Nursing Facility. The seizure occurred on 10/20/2018. ID called for evaluation of potential infectious triggers given prominent history of UTIs. Urine cultures showing Gram Negative Rods. Cefepime started for treatment on 10/21/2018. Will consider carbapenem if necessary given the carbapenem has the potential to decrease seizure threshold. Fluoroquinolones are also not useable by the patient for the same reason. Identification showing Providencia and Pseudomonas growth. Both are sensitive to Cefepime. No oral options for treatment of the Pseudomonas. On day 5 of treatment now. He is currently making no complaints. No further seizure episodes. Tolerating Cefepime. Objective - Vital Signs/Intake and Output Vital Signs (last 24 hours): Temp Pulse Resp BP Pulse Ox 98.4 F 96 H 19 107/74 96 10/26/18 13:16 10/26/18 13:16 10/26/18 13:16 10/26/18 13:16 10/26/18 06:00 Intake and Output: 10/26/18 10/26/18 06:59 18:59 Intake Total 1320 Output Total 2900 Balance -1580 - Medications Medications: Current Medications Acetaminophen (Tylenol 650mg/20.3ml Solution Ud) 650 mg GT Q4 PRN PRN Reason: Pain, Mild (1-3) Last Admin: 10/25/18 21:50 Dose: 650 mg Amlodipine Besylate (Norvasc) 10 mg GT DAILY [facility] Last Admin: 10/26/18 09:18 Dose: 10 mg Arformoterol Tartrate (Brovana) 15 mcg IH [id number] [facility] Last Admin: 10/26/18 07:27 Dose: 15 mcg Aspirin (Aspirin Chewable) 81 mg GT DAILY [facility] Last Admin: 10/26/18 09:18 Dose: 81 mg Baclofen (Lioresal) 5 mg NG BID [facility] Last Admin: 10/26/18 09:18 Dose: 5 mg Budesonide (Pulmicort Respules) 0.5 mg IH [id number] [facility] Last Admin: 10/26/18 07:27 Dose: 0.5 mg Ergocalciferol (Drisdol 50,000 Intl Units Cap) 1 cap GT QWK [facility] Gabapentin (Neurontin) 100 mg GT HS [facility]; Protocol Last Admin: 10/25/18 21:35 Dose: 100 mg Cefepime HCl (Maxipime 1gm) 1 gm in 100 mls @ 100 mls/hr IVPB Q12 [facility]; Protocol Last Admin: 10/26/18 09:17 Dose: 100 mls/hr Latanoprost (Xalatan Opht) 0 ml OU HS [facility] Last Admin: 10/25/18 21:35 Dose: 2.5 ml Levetiracetam (Keppra) 500 mg PO BID [facility] Last Admin: 10/26/18 09:17 Dose: 500 mg Magnesium Hydroxide (Milk Of Magnesia) 30 ml GT HS PRN PRN Reason: Constipation Last Admin: 10/22/18 13:24 Dose: 30 ml Melatonin (Melatonin) 6 mg PO HS [facility] Last Admin: 10/25/18 21:35 Dose: 6 mg Metoprolol Tartrate (Lopressor) 50 mg GT DAILY [facility] Last Admin: 10/26/18 09:18 Dose: 50 mg Multivitamins/Vitamin C (Multi-Delyn Liquid) 15 ml GT DAILY [facility] Last Admin: 10/26/18 09:17 Dose: 15 ml Mupirocin (Bactroban Ointment) 0 gm TOP DAILY [facility] Last Admin: 10/26/18 09:21 Dose: 1 applic Celecoxib [Celebrex] 200 Mg (Home Med) 200 mg GT DAILY [facility] Last Admin: 10/26/18 09:21 Dose: Not Given Pantoprazole Sodium (Protonix Susp) 40 mg GT BID [facility] Last Admin: 10/26/18 09:17 Dose: 40 mg Petrolatum (Desitin Maximum Strength Topical 40% Oint) 0 gm TOP Q8 [facility] Last Admin: 05/22/19 05:18 Dose: 1 applic Sennosides (Senokot Tab) 8.6 mg PEG DAILY [facility] Last Admin: 10/26/18 09:18 Dose: 8.6 mg - Labs Labs: 10/23/18 11:30 10/23/18 11:30 - Constitutional Appears: Non-toxic, No Acute Distress, Chronically Ill - Head Exam Head Exam: ATRAUMATIC, NORMOCEPHALIC - Eye Exam Eye Exam: EOMI, PERRL Pupil Exam: NORMAL ACCOMODATION, PERRL - ENT Exam ENT Exam: Mucous Membranes Moist, Normal External Ear Exam, TM's Normal Bilaterally - Neck Exam Neck Exam: Full ROM, Normal Inspection - Respiratory Exam Respiratory Exam: Clear to Ausculation Bilateral, NORMAL BREATHING PATTERN. absent: Rales, Rhonchi, Wheezes - Cardiovascular Exam Cardiovascular Exam: REGULAR RHYTHM, RRR, +S1, +S2 - GI/Abdominal Exam GI & Abdominal Exam: Soft, Normal Bowel Sounds. absent: Distended, Tenderness Additional comments: PEG in place. Suprapubic catheter in place. - Extremities Exam Extremities Exam: Full ROM, Normal Inspection - Neurological Exam Neurological Exam: Alert, Awake, CN II-XII Intact, Oriented x3 - Psychiatric Exam Psychiatric exam: Normal Affect, Normal Mood - Skin Skin Exam: Intact, Normal Color Assessment and Plan - Assessment and Plan (Free Text) Assessment: 67 yo AA male brought in to [facility] for reported Grand Mal seizure at [facility]) facility. Cultures pending. Will start Cefepime for antibiotic coverage for now. Leukocytosis of 16.2 although this can be secondary to the recent "Grand Mal" seizure. Patient seen by Dr. Turcios for neurology evaluation. Trend WBC. Chest X-ray no acute disease. Urinalysis indicates a potential infection/UTI. Gram negative rods on urine cultures. Continuing on Cefepime for antibiotic coverage. Meropenem will be considered if necessary... there would be concerns for decreasing the seizure threshold with carbapenems and fluoroquinolone usage. WBC of 5.6 on 10/23/2018. Identification showing Pseudomonas and Providencia. Both are sensitive to Cefepime. Consider 7-10 of antibiotic treatment. On day 5 of treatment. Can consider midline placement and completing antibiotics in LTC. No available oral treatment for Pseudomonas with resistance to Fluoroquinolones. Thank you for allowing me to participate in the care of the patient, we will follow with you.
== END 2018-10-26 18:36 | DRG 872 ==
LOC: ED 19:25 → ERH 10-21 → 2RSO 10-21 02:08
PROVIDERS: ADMIT Internal Medicine; ATTEND Internal Medicine
DX: A41.9 Sepsis, unspecified organism (principal); N39.0 Urinary tract infection, site not specified; B96.5 Pseudomonas (aeruginosa) (mallei) (pseudomallei) as the cause of diseases classified elsewhere; I10 Essential (primary) hypertension; G40.409 Other generalized epilepsy and epileptic syndromes, not intractable, without status epilepticus; H40.9 Unspecified glaucoma; H54.8 Legal blindness, as defined in USA; E11.65 Type 2 diabetes mellitus with hyperglycemia; E83.41 Hypermagnesemia; J43.9 Emphysema, unspecified; N32.0 Bladder-neck obstruction; Z85.46 Personal history of malignant neoplasm of prostate; Z85.21 Personal history of malignant neoplasm of larynx; Z85.810 Personal history of malignant neoplasm of tongue; Z87.891 Personal history of nicotine dependence; Z93.0 Tracheostomy status; Z93.1 Gastrostomy status; Z74.01 Bed confinement status